=== PATIENT | female | born 1950 | race Caucasian/White ===

== ENCOUNTER 2023-10-15 13:31 | Outpatient (REF) | payer MEDICARE, OTHER, SELFPAY ==
[2023-10-16 09:25] LABS: Anion Gap 11 (12-20); Blood Urea Nitrogen 37 mg/dL (9-16); Carbon Dioxide 22 mmol/L (22-29); Chloride 111 mmol/L (96-108); Estimated Glomerular Filt Rate 26; Potassium 5.2 mmol/L (3.3-5.1); Sodium 139 mmol/L (135-145)
[2023-10-16 09:51] LABS: Creatinine Urine 65.55 mg/dL
[2023-10-16 10:01] LABS: Protein/Creatinine Ratio, Ur 3.63 (<0.2); Total Protein Urine Random 238 mg/dL (<12)
== END 2023-10-15 13:32 | disposition home or self-care (01) ==
LOC: HO.HKASLDS 13:31
PROVIDERS: Visit Provider Internal Medicine Nephrology
DX: N18.30 Chronic kidney disease, stage 3 unspecified (principal)
CPT/HCPCS: 36415; 80051; 82565; 82570; 84156; 84520

== ENCOUNTER 2023-10-20 14:15 | Outpatient (AMB) | payer MEDICARE, OTHER, SELFPAY ==
--- NOTE | 2023-10-20 14:24 | HO.NEPHOV ---
HPI HPI Comments History of Present Illness Details Annaeblle was seen in the office in follow-up for chronic kidney disease, proteinuria and hypertension. She has history of coronary disease, CABG and AVR. She has diabetic retinopathy. Her blood pressure control is fair. She denies any chest pain, shortness of breath, proximal nocturnal dyspnea, orthopnea, nausea, vomiting, diarrhea or urinary symptoms. She is currently on Farxiga. She was on Trulicity in the past but stopped due to side effects. Her recent serum creatinine has been 2. PFSH Medical History (Updated 10/20/23 @ 14:41 by Romeo Ni MD) Diabetic retinopathy Essential (primary) hypertension Aortic valve stenosis Chronic diastolic CHF (congestive heart failure) Type 2 diabetes mellitus CKD (chronic kidney disease) stage 3, GFR 30-59 ml/min HLD (hyperlipidemia) Surgical History (Updated 10/20/23 @ 14:37 by Abby Albright MA) Aortic valve replaced S/P quadruple vessel bypass Family History Father Diabetes Social History (Updated 10/20/23 @ 14:38 by Abby Albright MA) Alcohol intake: never Patient Tobacco Use Status: Never used Tobacco Use of substances other than those prescribed or required for medical reasons: No Vital Signs 10/20/23 14:25 Height 5 ft 3 in Weight 204 lb 4 oz BMI 36.2 BP 160/70 H Blood Pressure Location Rt brachial Position Sitting Pulse 58 Pulse Source Pulse Oximeter Pulse Oximetry (%) 95 Oxygen Delivery Method Room Air Physical Exam Vital Signs: Last Vital Signs Pulse 58 10/20/23 14:25 BP 160/70 H 10/20/23 14:25 Pulse Ox 95 10/20/23 14:25 Oxygen Delivery Method Room Air 10/20/23 14:25 BMI result Body Mass Index 36.2 Const General: comfortable and no acute distress Orientation/consciousness: patient oriented x3 HEENT Head: Yes normocephalic Mouth: Normal oral and palatal mucosa present Eyes EOM: EOMs intact bilaterally Neck Neck: Yes supple Resp Auscultation: clear to auscultation bilaterally Cardio Jugular venous distension: no JVD Rate: regular rate GI Palpation (GI): Soft to palpation Auscultation: normal bowel sounds General: Yes no CVA tenderness Back/Spine/Pelvis Back: no CVA tenderness Skin General skin exam: no rashes or lesions noted Neuro General: patient oriented x3 and moves all extremities Extrem General: Yes no pedal edema Assessment & Plan Assessment & Plan (1) CKD (chronic kidney disease) stage 3, GFR 30-59 ml/min: Code(s): N18.30 - Chronic kidney disease, stage 3 unspecified (2) Essential (primary) hypertension: Code(s): I10 - Essential (primary) hypertension Plan 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 She has history of MGUS as well. She is hypertensive and has history of I high MITCHELL. She could continue current dose of Lasix for now. She had declined renal biopsy in the past. She is on hydralazine, losartan and Imdur. She is taking Farxiga. She should maintain good hydration. I may have to back off on her losartan for serum creatinine rises. I did not make any medication changes today. She should lose weight. Follow-up blood work ordered. All questions answered. Follow-up given. Orders: Orders Electrolytes Today I10 - Essential (primary) hypertension, N18.30 - Chronic kidney disease, stage 3 unspecified Blood Urea Nitrogen Today I10 - Essential (primary) hypertension, N18.30 - Chronic kidney disease, stage 3 unspecified Creatinine Today I10 - Essential (primary) hypertension, N18.30 - Chronic kidney disease, stage 3 unspecified Coding Level of Care Code Est Pt Level 3 (24847) Diagnoses CKD (chronic kidney disease) stage 3, GFR 30-59 ml/min N18.30 Essential (primary) hypertension I10 Results Reviewed Nephrology Results: Hgb 10.9 g/dL (12.0-16.0) L 05/15/20 WBC 8.7 X10*3/uL (4.8-10.8) 05/15/20 Plt Count 223 x10*3/uL (160-400) 05/15/20 Sodium 139 mmol/L (135-145) 10/15/23 Potassium 5.2 mmol/L (3.3-5.1) H 10/15/23 Chloride 111 mmol/L (96-108) H 10/15/23 Carbon Dioxide 22 mmol/L (22-29) 10/15/23 BUN 37 mg/dL (9-16) H 10/15/23 Creatinine 1.89 mg/dL (0.5-1.4) H 10/15/23 Calcium 8.9 MG/DL (8.4-10.2) 07/20/20 Phosphorus 4.9 MG/DL (2.7-4.5) H 07/20/20 Urine Creatinine 65.55 mg/dL 10/15/23 Protein/Creatinin Ratio 3.63 (<0.2) H 10/15/23
[2023-10-20 14:25] VITALS: BP 160/70; PULSE 58; O2SAT 95; BMI 36.2
== END 2023-10-20 15:14 | disposition home or self-care (01) ==
PROVIDERS: PCP Internal Medicine; Visit Provider Internal Medicine Nephrology
DX: N18.30 Chronic kidney disease, stage 3 unspecified (principal); I10 Essential (primary) hypertension
CPT/HCPCS: 99213

== ENCOUNTER → 2023-10-20 14:15 | Outpatient (BNVA) | payer MEDICARE, OTHER, SELFPAY | PROVIDERS: PCP Internal Medicine; Visit Provider Internal Medicine Nephrology | DX: I12.9 Hypertensive chronic kidney disease with stage 1 through stage 4 chronic kidney disease, or unspecified chronic kidney disease (principal); N18.30 Chronic kidney disease, stage 3 unspecified | CPT/HCPCS: 99212 ==

== ENCOUNTER 2023-11-25 09:58 | Outpatient (REF) | payer MEDICARE, OTHER, SELFPAY ==
[2023-11-25 15:45] LABS: Anion Gap 11 (12-20); Blood Urea Nitrogen 41 mg/dL (9-16); Carbon Dioxide 21 mmol/L (22-29); Chloride 112 mmol/L (96-108); Estimated Glomerular Filt Rate 23; Potassium 4.9 mmol/L (3.3-5.1); Sodium 139 mmol/L (135-145)
== END 2023-11-25 09:59 | disposition home or self-care (01) ==
LOC: HO.HKASLDS 09:58
PROVIDERS: Visit Provider Internal Medicine Nephrology
DX: I12.9 Hypertensive chronic kidney disease with stage 1 through stage 4 chronic kidney disease, or unspecified chronic kidney disease (principal); N18.30 Chronic kidney disease, stage 3 unspecified
CPT/HCPCS: 36415; 80051; 82565; 84520

== ENCOUNTER 2023-12-02 10:22 | Outpatient (AMB) | payer MEDICARE, OTHER, SELFPAY ==
[2023-12-02 10:28] VITALS: BP 150/54; PULSE 55; O2SAT 98; BMI 36.0
--- NOTE | 2023-12-02 10:28 | HO.NEPHOV_ITS ---
HPI HPI Comments History of Present Illness Details Annabelle was seen in the office in follow-up for chronic kidney disease, proteinuria and hypertension. She has history of coronary disease, CABG and AVR. She has diabetic retinopathy. Her blood pressure control is fair. She denies any chest pain, shortness of breath, proximal nocturnal dyspnea, orthopnea, nausea, vomiting, diarrhea or urinary symptoms. She is currently on Farxiga. She was on Trulicity in the past but stopped due to side effects. Her recent serum creatinine has been 2. Her losartan has been put on hold last week given lack of improvement of serum creatinine to see whether that makes a di fference in her serum creatinine. She continues to have proteinuria over 3 g. She is having intermittent low blood sugars like 59. [facility] Medical History (Updated 12/02/23 @ 10:33 by Romeo Ni MD) Diabetic retinopathy Essential (primary) hypertension Aortic valve stenosis Chronic diastolic CHF (congestive heart failure) Type 2 diabetes mellitus CKD (chronic kidney disease) stage 3, GFR 30-59 ml/min HLD (hyperlipidemia) Surgical History Aortic valve replaced S/P quadruple vessel bypass Family History Father Diabetes Social History Alcohol intake: never Patient Tobacco Use Status: Never used Tobacco Vital Signs 12/02/23 10:28 Height 5 ft 3 in Weight 203 lb 4 oz BMI 36.0 BP 150/54 H Blood Pressure Location Lt brachial Position Sitting Pulse 55 Pulse Source Pulse Oximeter Pulse Oximetry (%) 98 Oxygen Delivery Method Room Air Physical Exam Vital Signs: Last Vital Signs Pulse 55 12/02/23 10:28 BP 150/54 H 12/02/23 10:28 Pulse Ox 98 12/02/23 10:28 Oxygen Delivery Method Room Air 12/02/23 10:28 BMI result Body Mass Index 36.0 Const General: comfortable and no acute distress Orientation/consciousness: patient oriented x3 HEENT Head: Yes normocephalic Mouth: Normal oral and palatal mucosa present Eyes EOM: EOMs intact bilaterally Neck Neck: Yes supple Resp Auscultation: clear to auscultation bilaterally Cardio Jugular venous distension: no JVD Rate: regular rate GI Palpation (GI): Soft to palpation Auscultation: normal bowel sounds General: Yes no CVA tenderness Back/Spine/Pelvis Back: no CVA tenderness Skin General skin exam: no rashes or lesions noted Neuro General: patient oriented x3 and moves all extremities Assessment & Plan Assessment & Plan (1) CKD (chronic kidney disease) stage 3, GFR 30-59 ml/min: Code(s): N18.30 - Chronic kidney disease, stage 3 unspecified Qualifiers: Chronic kidney disease stage 3 subtype: stage 3b (GFR 30-44) Qualified Code(s): N18.32 - Chronic kidney disease, stage 3b (2) Essential (primary) hypertension: Code(s): I10 - Essential (primary) hypertension (3) Diabetic nephropathy: Code(s): E11.21 - Type 2 diabetes mellitus with diabetic nephropathy Qualifiers: Diabetes mellitus type: type 2 Qualified Code(s): E11.21 - Type 2 diabetes mellitus with diabetic nephropathy (4) Anemia in chronic kidney disease: Code(s): N18.9 - Chronic kidney disease, unspecified; D63.1 - Anemia in chronic kidney disease Qualifiers: Chronic kidney disease stage: stage 3 (moderate) Chronic kidney disease stage 3 subtype: stage 3b (GFR 30-44) Qualified Code(s): N18.32 - Chronic kidney disease, stage 3b; D63.1 - Anemia in chronic kidney disease Plan 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 She has history of MGUS as well. She is hypertensive and has history of high MITCHELL. She could continue current dose of Lasix for now. She had declined renal biopsy in the past. She is on hydralazine, losartan and Imdur. She is taking Farxiga. Her losartan is currently on hold. She has no indication of initiating Procrit now. She should maintain good hydration. I may have to restart her losartan if her serum creatinine remains stable. I reduced her Farxiga to 10 mg daily. I also increased her hydralazine to 50 mg bid. I did not make any medication changes today. She should lose weight. Follow-up blood work ordered. All questions answered. Follow-up given Orders: Orders Blood Urea Nitrogen Today D63.1 - Anemia in chronic kidney disease, E11.21 - Type 2 diabetes mellitus with diabetic nephropathy, I10 - Essential (primary) hypertension, N18.30 - Chronic kidney disease, stage 3 unspecified, N18.9 - Chronic kidney disease, unspecified Electrolytes Today D63.1 - Anemia in chronic kidney disease, E11.21 - Type 2 diabetes mellitus with diabetic nephropathy, I10 - Essential (primary) hypertension, N18.30 - Chronic kidney disease, stage 3 unspecified, N18.9 - Chronic kidney disease, unspecified Creatinine Today D63.1 - Anemia in chronic kidney disease, E11.21 - Type 2 diabetes mellitus with diabetic nephropathy, I10 - Essential (primary) hypertension, N18.30 - Chronic kidney disease, stage 3 unspecified, N18.9 - Chronic kidney disease, unspecified Medications: New dapagliflozin propanediol (Farxiga) 10 mg PO DAILY 30 tabs 5RF Refilled ergocalciferol (vitamin D2) 1,250 mcg PO .once a month 90 days 3 caps 11RF Coding Level of Care Code Est Pt Level 4 (83212) Diagnoses Stage 3b chronic kidney disease N18.32 Chronic kidney disease stage 3 subtype: stage 3b (GFR 30-44) Essential (primary) hypertension I10 Diabetic nephropathy associated with type 2 diabetes mellitus E11.21 Diabetes mellitus type: type 2 Anemia in stage 3b chronic kidney disease N18.32; D63.1 Chronic kidney disease stage: stage 3 (moderate) Chronic kidney disease stage 3 subtype: stage 3b (GFR 30-44) Results Reviewed Nephrology Results: 2 Hgb 10.9 g/dL (12.0-16.0) L 05/15/20 WBC 8.7 X10*3/uL (4.8-10.8) 05/15/20 Plt Count 223 x10*3/uL (160-400) 05/15/20 Sodium 139 mmol/L (135-145) 11/25/23 Potassium 4.9 mmol/L (3.3-5.1) 11/25/23 Chloride 112 mmol/L (96-108) H 11/25/23 Carbon Dioxide 21 mmol/L (22-29) L 11/25/23 BUN 41 mg/dL (9-16) H 11/25/23 Creatinine 2.07 mg/dL (0.5-1.4) H 11/25/23 Calcium 8.9 MG/DL (8.4-10.2) 09/17/20 Phosphorus 4.9 MG/DL (2.7-4.5) H 07/20/20 Urine Creatinine 65.55 mg/dL 10/15/23 Protein/Creatinin Ratio 3.63 (<0.2) H 10/15/23
== END 2023-12-02 10:55 | disposition home or self-care (01) ==
PROVIDERS: PCP Internal Medicine; Visit Provider Internal Medicine Nephrology
DX: N18.32 Chronic kidney disease, stage 3b (principal); I10 Essential (primary) hypertension; E11.21 Type 2 diabetes mellitus with diabetic nephropathy; D63.1 Anemia in chronic kidney disease
CPT/HCPCS: 99214

== ENCOUNTER → 2023-12-02 10:22 | Outpatient (BNVA) | payer MEDICARE, OTHER, SELFPAY | PROVIDERS: PCP Internal Medicine; Visit Provider Internal Medicine Nephrology | DX: I12.9 Hypertensive chronic kidney disease with stage 1 through stage 4 chronic kidney disease, or unspecified chronic kidney disease (principal); E11.21 Type 2 diabetes mellitus with diabetic nephropathy; N18.32 Chronic kidney disease, stage 3b; D63.1 Anemia in chronic kidney disease; R80.9 Proteinuria, unspecified; Z79.899 Other long term (current) drug therapy | CPT/HCPCS: 99212 ==

== ENCOUNTER 2023-12-17 12:21 | Emergency (ER) | payer MEDICARE, OTHER, SELFPAY ==
--- NOTE | ~2023-12-17 | XR_ITS ---
EXAMINATION: XR CHEST CLINICAL INFORMATION: Pain COMPARISON: Chest radiograph 10/15/2019 TECHNIQUE: 2 views of the chest FINDINGS: Lines and tubes: Median sternotomy wires and mediastinal surgical clips. Cardiac valve prosthesis. Clear lungs. Interval resolution of previously seen small right pleural effusion and decrease in now trace left pleural effusion. No pneumothorax. Borderline enlarged cardiac silhouette decreased from prior. XR/XR chest 2V IMPRESSION: 1. Interval resolution of previously seen small right pleural effusion and decrease in now trace left pleural effusion. 2. Borderline enlarged cardiac silhouette decreased from prior.
[2023-12-17 12:53] VITALS: BP 198/64; PULSE 66; RESP 18; TEMP 35.9; O2SAT 94; BMI 36.2
--- NOTE | 2023-12-17 12:53 | ED.GENADULT ---
HPI - General Adult General Chief complaint: General Medical Stated complaint: Kidney Issues Sent By PCP Time Seen by Provider: 12/17/23 15:11 Source: patient Mode of arrival: ambulatory Limitations: no limitations History of Present Illness HPI narrative: 73-year-old female with a history of diabetes mellitus, hypertension, hyperlipidemia, chronic kidney disease, aortic valve replacement, CABG x4 vessel who presents emergency department for evaluation headache, chest pain and elevated blood pressures. The patient that she has been working with her inspector watch assembly, Dr. Jaime on trying to control her blood pressures. She states that her systolic blood pressures can range from 90-200. She states she has been checking her blood pressures multiple times a day and recently her morning systolic blood pressures have been over 200 she states that over the past 4 days she has been having a left-sided headache which is been constant is 2/10 at its worst. The headache associated with nausea, vomiting and generalized weakness. She also states she has been having intermittent left-sided chest pain which started today. She states that the chest pain lasts minutes. She also feels like her heart is racing. She denied fever, chills, she states she has had an occasional cough. Related Data Home Medications Medication Instructions Recorded Confirmed aspirin 81 mg tablet,delayed 81 mg PO DAILY 10/20/23 release ezetimibe 10 mg tablet 10 mg PO DAILY 10/20/23 ferrous sulfate 137 mg (45 mg mg PO DAILY 10/20/23 iron) tablet,extended release (Slow Fe) furosemide 40 mg tablet 40 mg PO Q OTHER DAY 10/20/23 isosorbide mononitrate 30 mg 30 mg PO DAILY 10/20/23 tablet,extended release 24 hr losartan 25 mg tablet 25 mg PO DAILY 10/20/23 carvedilol 3.125 mg tablet 6.25 mg PO BID 12/02/23 dapagliflozin propanediol 10 mg 10 mg PO DAILY 12/02/23 12/02/23 tablet (Farxiga) hydralazine 25 mg tablet 50 mg PO BID 12/02/23 12/02/23 magnesium 250 mg tablet 250 mg PO DAILY 12/02/23 Previous Rx's Medication Instructions Recorded atorvastatin 80 mg tablet 80 mg PO BEDTIME 90 days #90 tabs 08/15/20 blood sugar diagnostic (FreeStyle #100 ea 08/30/20 Lite Strips) lancets 28 gauge (FreeStyle #100 ea 08/30/20 Lancets) dapagliflozin propanediol 10 mg 10 mg PO DAILY #30 tabs 12/02/23 tablet (Farxiga) ergocalciferol (vitamin D2) 1,250 1,250 mcg PO .once a month 90 days 12/02/23 mcg (50,000 unit) capsule #3 caps lorazepam 1 mg tablet (Ativan) 1 mg PO TID PRN anxiety #10 tabs 12/17/23 Allergies Allergy/AdvReac Type Severity Reaction Status Date / Time liraglutide [Victoza] Allergy Unknown Unknown Verified 12/17/23 12:52 lisinopril [LISINOPRIL] Allergy Unknown cough Verified 12/17/23 12:52 adhisive Allergy Unknown Unknown Uncoded 10/20/23 14:28 Review of Systems Review of Systems: Yes all other systems are reviewed and are negative [facility] Past Medical History Medical History Diabetic retinopathy Essential (primary) hypertension Aortic valve stenosis Chronic diastolic CHF (congestive heart failure) Type 2 diabetes mellitus CKD (chronic kidney disease) stage 3, GFR 30-59 ml/min HLD (hyperlipidemia) Surgical History Aortic valve replaced S/P quadruple vessel bypass Family History Family History Father Diabetes Social History Social History Alcohol intake: never Patient Tobacco Use Status: Never used Tobacco Advance Directives: Yes Advance Directives Information Provided: No Advance Directives on File: No Physical Exam ED Vital Signs: Vital Signs - 24 hr 12/17/23 12:53 Temperature 96.7 F L Pulse Rate 66 Respiratory Rate 18 Blood Pressure 198/64 H Pulse Oximetry 94 Oxygen Delivery Method Room Air BMI result Body Mass Index 36.2 Vital signs revealed an elevated blood pressure 198/64 otherwise unremarkable Exam General: Awake, alert in no distress Head: Normocephalic, atraumatic EENT: PERRL, Lids normal, sclera normal, conjunctiva normal, nose normal , ears normal, throat without erythema or exudates Neck: Supple, no adenopathy Lung: breath sounds symmetric, no wheezing, rales or rhonchi Chest: symmetric movement, nontender Heart: regular rate and rhythm, normal S1, S2 no murmurs or rubs Abdomen: soft, non-tender, nondistended, normal bowel sounds Back: no vertebral tenderness, no CVAT Extremities: no deformities, moves all extremities symmetrically, exam no pitting edema Neuro: Awake, alert, oriented, normal speech, cranial nerves intact, moves all extremities symmetrically Psych: Pleasant, cooperative Course Course Course Narrative: Patient complains of intermittent chest pain, weakness, low sugars at home, and is also concerned about high blood pressure readings at home, no chest pain at this moment Labs and EKG are ordered, chest X ordered This is rapid medical exam done in triage pending full evaluation and dispo by ER provider Medical Decision Making Medical Decision Making MDM Narrative: 73-year-old female with a history of diabetes mellitus, hypertension, hyperlipidemia, chronic kidney disease, aortic valve replacement, CABG x4 vessel who presents emergency department for evaluation headache, chest pain and elevated blood pressures. Patient has had a constant left-sided headache x4 days . She was also concerned that she had intermittent left-sided chest pain which started today. Patient's vital signs were normal except for an elevated blood pressure at 198/64. Patient's neurologic exam was nonfocal, patient had no chest wall tenderness. Differential diagnosis: Includes but is not limited to myocardial infarction, myocardial ischemia, chest wall pain, costochondritis, stroke, migraine headache, nonspecific headache, exam 15:56 My interpretation of the patient's laboratory evaluation is as follows: Eroded all down CBC revealed mild anemia with an H&H of 11.7 and 36.0. BUN 31 and 1.97-this is consistent with the patient's chronic kidney disease. Patient's GFR was 25. This was compared to a GFR of 23 on 11/25/2023. Patient's potassium was normal. Troponin was elevated at 26.2 and will be repeated at 17:00 hours 18:38 Repeat troponin was 25 which is reassuring. I did discuss further management of the patient's blood pressure with her, she is to check her blood pressure in the morning at night until she sees her inspector watch assembly next week to discuss these readings. I do think that there has a component of anxiety to the patient's symptoms and she agrees. Therefore the patient was given prescription for Ativan 1 mg pills, 1 pill 3 times as needed. Admission/Observation Consideration of admission/observation: Escalation of care including admission/observation considered Lab Data MDM Lab Attestation statement: I reviewed the patient's lab results. 12/17/23 13:52 12/17/23 13:52 Labs: Lab Results 12/17/23 12/17/23 Range/Units 13:52 17:39 WBC 7.0 (4.8-10.8) X10*3/uL RBC 3.98 L (4.20-5.50) X10*6/uL Hgb 11.7 L (12.0-16.0) g/dl Hct 36.0 L (37.0-47.0) % MCV 90.5 (80.0-98.0) fL MCH 29.4 (27.0-33.0) pg MCHC 32.5 (31.0-35.0) g/dl RDW 14.3 (11.0-16.0) % Plt Count 213 (160-400) X10*3/uL MPV 12.1 (9.4-12.3) fL Immature Gran % (Auto) 0.3 (0.0-0.4) % Neut % (Auto) 67.1 (45-73) % Lymph % (Auto) 22.0 (20-40) % Riley % (Auto) 8.7 (2-11) % Eos % (Auto) 1.6 (0-4) % Baso % (Auto) 0.3 (0-2) % Lymph # (Auto) 1.5 (1.2-4.9) X10*3/uL Riley # (Auto) 0.6 (0.1-1.2) X10*3/uL Eos # (Auto) 0.1 (0.0-0.4) X10*3/uL Baso # (Auto) 0.0 (0.0-0.2) X10*3/uL Abs Immat Gran (auto) 0.02 (0.00-0.03) X10*3/uL Absolute Neuts (auto) 4.7 (2.0-8.3) x10*3/uL Absolute Nucleated RBC 0.000 (0.0-0.012) X10*3/uL Nucleated RBC % (auto) 0.0 (0.0-0.2) /100WBC Sodium 140 (135-145) mmol/L Potassium 4.6 (3.3-5.1) mmol/L Chloride 112 H (96-108) mmol/L Carbon Dioxide 21 L (22-29) mmol/L Anion Gap 12 (12-20) BUN 31 H (9-16) mg/dL Creatinine 1.97 H (0.5-1.4) mg/dL Estim Creat Clear Calc 26.4 Estimated GFR 25 Random Glucose 126 H (60-115) mg/dL Calcium 9.3 (8.4-10.2) mg/dL Total Bilirubin 0.3 (0.0-1.0) mg/dL Direct Bilirubin 0.2 (0.0-0.5) mg/dL AST 21 (5-31) U/L ALT 14 (0-31) U/L Alkaline Phosphatase 86 (39-117) U/L Troponin I High Sens 26.2 H 25.5 H (<3.5-17.0) ng/L Total Protein 7.3 (6.5-8.0) g/dL Albumin 3.7 (3.5-5.0) g/dL Lipase 10 (8-78) U/L COVID-19 (PRISCILLA) Negative (Negative) COVID-19 Clin Com See Note Independent Interpretation I performed an independent interpretation of an: EKG Interpretation: My interpretation the patient's 12 EKG done at 13:45 hours is as follows: Sinus rhythm rate of 61, first-degree AV block with a TX interval 250 milliseconds, prolonged QRS of 116 milliseconds, normal QTC interval, inverted T-wave in lead 1 and aVL, no ST segment elevation, no ST segment depression, no PACs no PVCs. Compared to EKG dated 10/23/2019 T-wave inversions in 1 and aVL are old. My interpretation patient's two view chest x-ray is as follows: No acute disease, patient had a right lower lobe effusion on the previous chest x-ray which is now resolved Radiology Impression Discussion of test interpretation with radiology: I have reviewed the radiologist's reading. Radiologist Impression: XR chest 2V IMPRESSION: 1. Interval resolution of previously seen small right pleural effusion and decrease in now trace left pleural effusion. 2. Borderline enlarged cardiac silhouette decreased from prior. Dictated By: Maye Diane MD External Record Review External record reviewed: Office record (In review Dr. Ni's office note from 12/02/2023) Chronic Conditions Patient?s care impacted by: Diabetes and Hypertension Discharge Plan Discharge Clinical Impression: Headache, Chest pain, Hypertension, Anxiety Patient Disposition: Home, Self-Care Additional Instructions: Your blood work is consistent with your baseline labs Your troponin was elevated at 26 but the repeat troponin was unchanged at 25, this is reassuring and suggests that your chest pain is not caused by heart attack or heart injury. I want you to check your blood pressures in the morning and at night until you see your inspector watch assembly. Write these blood pressures down in do not worry about any high or low readings and discuss them with your doctor. Ask your Nephrology what systolic blood pressure range would be acceptable given your age and kidney disease Take Ativan 1 mg pills, 1 pill at night as needed anxiety and insomnia. ?This medication will make you sleepy, do not drive or work while taking this medication. ?This medication can be addicting, if your concerned about addiction you can ask the pharmacist for less medications or do not get the prescription filled. Continue taking your blood pressures as prescribed Follow-up with your doctor in 2 days. Please return to the emergency department if your symptoms get worse or if you develop any symptoms that are concerning to you. Prescriptions: New lorazepam [Ativan] 1 mg tablet 1 mg PO TID PRN (Reason: anxiety) Qty: 10 0RF Rx Instructions: Patient may request partial fill No Action atorvastatin 80 mg tablet 80 mg PO BEDTIME 90 Days Qty: 90 3RF (DME) FreeStyle Lite Strips Strip See Rx Instructions .ROUTE .MEDSUPPLY Qty: 100 6RF Rx Instructions: test 3 times a day (DME) lancets [FreeStyle Lancets] 28 gauge misc See Rx Instructions .ROUTE .MEDSUPPLY Qty: 100 6RF Rx Instructions: test 3 times a day isosorbide mononitrate 30 mg tablet extended release 24 hr 30 mg PO DAILY furosemide 40 mg tablet 40 mg PO Q OTHER DAY ezetimibe 10 mg tablet 10 mg PO DAILY losartan 25 mg tablet 25 mg PO DAILY aspirin 81 mg tablet,delayed release (DR/EC) 81 mg PO DAILY Slow Fe 137 mg (45 mg iron) tablet extended release PO DAILY carvedilol 3.125 mg tablet 6.25 mg PO BID Rx Instructions: must administer with a meal/food magnesium 250 mg tablet 250 mg PO DAILY hydralazine 25 mg tablet 50 mg PO BID ergocalciferol (vitamin D2) 1,250 mcg (50,000 unit) capsule 1,250 mcg PO .once a month 90 Days Qty: 3 11RF Farxiga 10 mg tablet 10 mg PO DAILY Farxiga 10 mg tablet 10 mg PO DAILY Qty: 30 5RF
--- NOTE | 2023-12-17 12:55 | ECG_ITS ---
Test Reason : cp Blood Pressure : / mmHG Vent. Rate : 061 BPM Atrial Rate : 061 BPM P-R Int : 250 ms QRS Dur : 116 ms QT Int : 440 ms P-R-T Axes : 051 -45 120 degrees QTc Int : 442 ms Sinus rhythm with 1st degree A-V block Possible Left atrial enlargement Left anterior fascicular block Left ventricular hypertrophy with QRS widening and repolarization abnormality ( R in aVL , [place] product ) Abnormal ECG When compared with ECG of 23-OCT-2019 08:23, Criteria for Anterior infarct are no longer Present Nonspecific T wave abnormality no longer evident in Inferior leads T wave inversion less evident in Lateral leads Referred By: Bharath Laws Electronically Signed By:Max Howell
[2023-12-17 14:00] LABS: MANUAL DIFF FLAG NO
[2023-12-17 14:07] LABS: Basophils Percent Auto 0.3 % (0-2); Eosinophils Absolute Auto 0.1 X10*3/uL (0.0-0.4); Eosinophils Percent Auto 1.6 % (0-4); Hemoglobin 11.7 g/dl (12.0-16.0); Imm Gran Abs Auto 0.02 X10*3/uL (0.00-0.03); Imm Gran Pct Auto 0.3 % (0.0-0.4); Lymphocytes Absolute Auto 1.5 X10*3/uL (1.2-4.9); Mean Corpuscular HGB Conc 32.5 g/dl (31.0-35.0); Mean Corpuscular Hemoglobin 29.4 pg (27.0-33.0); Mean Corpuscular Volume 90.5 fL (80.0-98.0); Mean Platelet Volume 12.1 fL (9.4-12.3); Monocytes Absolute Auto 0.6 X10*3/uL (0.1-1.2); Monocytes Percent Auto 8.7 % (2-11); Neutrophils Absolute Auto 4.7 x10*3/uL (2.0-8.3); Neutrophils Percent Auto 67.1 % (45-73); Platelet Count 213 X10*3/uL (160-400); Red Blood Count 3.98 X10*6/uL (4.20-5.50); Red Cell Distribution Width 14.3 % (11.0-16.0)
[2023-12-17 14:16] LABS: Alanine Aminotransferase 14 U/L (0-31); Albumin Level 3.7 g/dL (3.5-5.0); Alkaline Phosphatase 86 U/L (39-117); Anion Gap 12 (12-20); Aspartate Amino Transferase 21 U/L (5-31); Bilirubin Direct 0.2 mg/dL (0.0-0.5); Bilirubin Total 0.3 mg/dL (0.0-1.0); Blood Urea Nitrogen 31 mg/dL (9-16); Calcium 9.3 mg/dL (8.4-10.2); Carbon Dioxide 21 mmol/L (22-29); Chloride 112 mmol/L (96-108); Creatinine Clr Calc Pharmacy 26.4; Estimated Glomerular Filt Rate 25; Glucose Random 126 mg/dL (60-115); Lipase 10 U/L (8-78); Potassium 4.6 mmol/L (3.3-5.1); Sodium 140 mmol/L (135-145); Total Protein 7.3 g/dL (6.5-8.0)
[2023-12-17 14:22] LABS: Troponin-I High Sensitivity 26.2 ng/L (<3.5-17.0)
[2023-12-17 14:29] LABS: COVID-19 Test Negative (Negative); IDNOW Serial# 9DB6401D
[2023-12-17 18:06] LABS: Troponin-I High Sensitivity 25.5 ng/L (<3.5-17.0)
[2023-12-17 19:02] VITALS: BP 184/51; PULSE 70; RESP 18; TEMP 36.5; O2SAT 97
== END 2023-12-17 19:06 | disposition home or self-care (01) ==
PROVIDERS: Physician Assistant Medical; Emergency Provider Emergency Medicine Emergency Medical Services; PCP Internal Medicine
DX: R51.9 Headache, unspecified (principal); R07.9 Chest pain, unspecified; F41.9 Anxiety disorder, unspecified; E11.22 Type 2 diabetes mellitus with diabetic chronic kidney disease; I13.0 Hypertensive heart and chronic kidney disease with heart failure and stage 1 through stage 4 chronic kidney disease, or unspecified chronic kidney disease; N18.30 Chronic kidney disease, stage 3 unspecified; I50.32 Chronic diastolic (congestive) heart failure; Z11.52 Encounter for screening for COVID-19; E78.5 Hyperlipidemia, unspecified; Z79.82 Long term (current) use of aspirin; Z79.899 Other long term (current) drug therapy; Z79.02 Long term (current) use of antithrombotics/antiplatelets; Z95.1 Presence of aortocoronary bypass graft; Z95.2 Presence of prosthetic heart valve
CPT/HCPCS: 36415; 71046; 80048; 80076; 83690; 84484; 85025; 87635; 93005; 99283

== ENCOUNTER → 2023-12-17 12:55 | Outpatient (BNV) | payer MEDICARE, OTHER, SELFPAY | PROVIDERS: Emergency Provider Emergency Medicine Emergency Medical Services; PCP Internal Medicine; Visit Provider Internal Medicine Cardiovascular Disease | DX: R94.31 Abnormal electrocardiogram [ECG] [EKG] (principal) | CPT/HCPCS: 93010 ==

== ENCOUNTER 2023-12-23 10:24 | Outpatient (AMB) | payer MEDICARE, OTHER, SELFPAY ==
--- NOTE | 2023-12-23 10:39 | HO.NEPHOV ---
HPI HPI Comments History of Present Illness Details Annabelle was seen in the office in follow-up for chronic kidney disease, proteinuria and hypertension. She has history of coronary disease, CABG and AVR. She has diabetic retinopathy. Her blood pressure control has been labile. She denies any chest pain, shortness of breath, proximal nocturnal dyspnea, orthopnea, nausea, vomiting, diarrhea or urinary symptoms. She is currently on Farxiga. She was on Trulicity in the past but stopped due to side effects. Her recent serum creatinine has been 2. Her losartan has been put on hold . She continues to have proteinuria over 3 g. [facility] Medical History Diabetic retinopathy Essential (primary) hypertension Aortic valve stenosis Chronic diastolic CHF (congestive heart failure) Type 2 diabetes mellitus CKD (chronic kidney disease) stage 3, GFR 30-59 ml/min HLD (hyperlipidemia) Surgical History Aortic valve replaced S/P quadruple vessel bypass Family History Father Diabetes Social History Alcohol intake: never Patient Tobacco Use Status: Never used Tobacco Vital Signs 12/23/23 10:40 Height 5 ft 3 in Weight 205 lb 4 oz BMI 36.4 BP 130/60 Blood Pressure Location Rt brachial Position Sitting Pulse 57 Pulse Source Pulse Oximeter Pulse Oximetry (%) 97 Oxygen Delivery Method Room Air Physical Exam Vital Signs: Last Vital Signs Pulse 57 12/23/23 10:40 BP 130/60 12/23/23 10:40 Pulse Ox 97 12/23/23 10:40 Oxygen Delivery Method Room Air 12/23/23 10:40 BMI result Body Mass Index 36.4 Const General: comfortable and no acute distress Orientation/consciousness: patient oriented x3 HEENT Head: Yes normocephalic Mouth: Normal oral and palatal mucosa present Eyes EOM: EOMs intact bilaterally Neck Neck: Yes supple Resp Auscultation: clear to auscultation bilaterally Cardio Jugular venous distension: no JVD Rate: regular rate GI Palpation (GI): Soft to palpation Auscultation: normal bowel sounds General: Yes no CVA tenderness Back/Spine/Pelvis Back: no CVA tenderness Skin General skin exam: no rashes or lesions noted Neuro General: patient oriented x3 and moves all extremities Extrem General: Yes no pedal edema Assessment & Plan Assessment & Plan (1) CKD (chronic kidney disease) stage 3, GFR 30-59 ml/min: Code(s): N18.30 - Chronic kidney disease, stage 3 unspecified Qualifiers: Chronic kidney disease stage 3 subtype: stage 3b (GFR 30-44) Qualified Code(s): N18.32 - Chronic kidney disease, stage 3b (2) Diabetic nephropathy: Code(s): E11.21 - Type 2 diabetes mellitus with diabetic nephropathy Qualifiers: Diabetes mellitus type: type 2 Qualified Code(s): E11.21 - Type 2 diabetes mellitus with diabetic nephropathy (3) Essential (primary) hypertension: Code(s): I10 - Essential (primary) hypertension (4) Anemia in chronic kidney disease: Code(s): N18.9 - Chronic kidney disease, unspecified; D63.1 - Anemia in chronic kidney disease Qualifiers: Chronic kidney disease stage: stage 3 (moderate) Chronic kidney disease stage 3 subtype: stage 3b (GFR 30-44) Qualified Code(s): N18.32 - Chronic kidney disease, stage 3b; D63.1 - Anemia in chronic kidney disease Plan 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 She has history of MGUS as well. She is hypertensive and has history of high MITCHELL. She could continue current dose of Lasix for now. She had declined renal biopsy in the past. She is on hydralazine, losartan and Imdur. She is taking Farxiga. Her losartan is currently on hold. She has no indication of initiating Procrit now. She should maintain good hydration. I may have to restart her losartan if her serum creatinine remains stable. I did not make any medication changes today. She should lose weight. Follow-up blood work ordered. All questions answered. Follow-up given Orders: Orders Creatinine Today D63.1 - Anemia in chronic kidney disease, E11.21 - Type 2 diabetes mellitus with diabetic nephropathy, I10 - Essential (primary) hypertension, N18.30 - Chronic kidney disease, stage 3 unspecified, N18.9 - Chronic kidney disease, unspecified Electrolytes Today D63.1 - Anemia in chronic kidney disease, E11.21 - Type 2 diabetes mellitus with diabetic nephropathy, I10 - Essential (primary) hypertension, N18.30 - Chronic kidney disease, stage 3 unspecified, N18.9 - Chronic kidney disease, unspecified Blood Urea Nitrogen Today D63.1 - Anemia in chronic kidney disease, E11.21 - Type 2 diabetes mellitus with diabetic nephropathy, I10 - Essential (primary) hypertension, N18.30 - Chronic kidney disease, stage 3 unspecified, N18.9 - Chronic kidney disease, unspecified Coding Level of Care Code Est Pt Level 4 (62165) Diagnoses Stage 3b chronic kidney disease N18.32 Chronic kidney disease stage 3 subtype: stage 3b (GFR 30-44) Diabetic nephropathy associated with type 2 diabetes mellitus E11.21 Diabetes mellitus type: type 2 Essential (primary) hypertension I10 Anemia in stage 3b chronic kidney disease N18.32; D63.1 Chronic kidney disease stage: stage 3 (moderate) Chronic kidney disease stage 3 subtype: stage 3b (GFR 30-44) Results Reviewed Nephrology Results: Hgb 11.7 g/dl (12.0-16.0) L 12/17/23 WBC 7.0 X10*3/uL (4.8-10.8) 12/17/23 Plt Count 213 X10*3/uL (160-400) 12/17/23 Sodium 140 mmol/L (135-145) 12/17/23 Potassium 4.6 mmol/L (3.3-5.1) 12/17/23 Chloride 112 mmol/L (96-108) H 12/17/23 Carbon Dioxide 21 mmol/L (22-29) L 12/17/23 BUN 31 mg/dL (9-16) H 12/17/23 Creatinine 1.97 mg/dL (0.5-1.4) H 12/17/23 Calcium 9.3 mg/dL (8.4-10.2) 12/17/23 Phosphorus 4.9 MG/DL (2.7-4.5) H 07/20/20 Urine Creatinine 65.55 mg/dL 10/15/23 Protein/Creatinin Ratio 3.63 (<0.2) H 10/15/23
[2023-12-23 10:40] VITALS: BP 130/60; PULSE 57; O2SAT 97; BMI 36.4
== END 2023-12-23 11:09 | disposition home or self-care (01) ==
PROVIDERS: PCP Internal Medicine; Visit Provider Internal Medicine Nephrology
DX: N18.32 Chronic kidney disease, stage 3b (principal); E11.21 Type 2 diabetes mellitus with diabetic nephropathy; I10 Essential (primary) hypertension; D63.1 Anemia in chronic kidney disease
CPT/HCPCS: 99214

== ENCOUNTER → 2023-12-23 10:24 | Outpatient (BNVA) | payer MEDICARE, OTHER, SELFPAY | PROVIDERS: PCP Internal Medicine; Visit Provider Internal Medicine Nephrology | DX: E11.21 Type 2 diabetes mellitus with diabetic nephropathy (principal); I12.9 Hypertensive chronic kidney disease with stage 1 through stage 4 chronic kidney disease, or unspecified chronic kidney disease; N18.32 Chronic kidney disease, stage 3b; D63.1 Anemia in chronic kidney disease | CPT/HCPCS: 99212 ==

== ENCOUNTER 2024-02-24 09:15 | Outpatient (REF) | payer MEDICARE, OTHER, SELFPAY ==
[2024-02-24 17:20] LABS: Anion Gap 13 (12-20); Blood Urea Nitrogen 48 mg/dL (9-16); Carbon Dioxide 18 mmol/L (22-29); Chloride 114 mmol/L (96-108); Estimated Glomerular Filt Rate 22; Potassium 4.8 mmol/L (3.3-5.1); Sodium 140 mmol/L (135-145)
== END 2024-02-24 09:16 | disposition home or self-care (01) ==
LOC: HO.HKASLDS 09:15
PROVIDERS: Visit Provider Internal Medicine Nephrology
DX: I12.9 Hypertensive chronic kidney disease with stage 1 through stage 4 chronic kidney disease, or unspecified chronic kidney disease (principal); E11.22 Type 2 diabetes mellitus with diabetic chronic kidney disease; E11.21 Type 2 diabetes mellitus with diabetic nephropathy; N18.30 Chronic kidney disease, stage 3 unspecified; D63.1 Anemia in chronic kidney disease
CPT/HCPCS: 36415; 80051; 82565; 84520

== ENCOUNTER 2024-03-02 10:18 | Outpatient (AMB) | payer MEDICARE, OTHER, SELFPAY ==
--- NOTE | 2024-03-02 10:27 | HO.NEPHOV_ITS ---
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 She has history of coronary disease, CABG and AVR. She has diabetic retinopathy. Her blood pressure control has been labile. She denies any chest pain, shortness of breath, proximal nocturnal dyspnea, orthopnea, nausea, vomiting, diarrhea or urinary symptoms. She is currently on Farxiga. She was on Trulicity in the past but stopped due to side effects. Her recent serum creatinine has been around 2. Her losartan has been put on hold . She continues to have proteinuria over 3 g. [facility] Medical History Diabetic retinopathy Essential (primary) hypertension Aortic valve stenosis Chronic diastolic CHF (congestive heart failure) Type 2 diabetes mellitus CKD (chronic kidney disease) stage 3, GFR 30-59 ml/min HLD (hyperlipidemia) Surgical History Aortic valve replaced S/P quadruple vessel bypass Family History Father Diabetes Social History Alcohol intake: never Patient Tobacco Use Status: Never used Tobacco Physical Exam Vital Signs: Last Vital Signs Pulse 58 03/02/24 10:28 BP 120/62 03/02/24 10:28 Pulse Ox 95 03/02/24 10:28 Oxygen Delivery Method Room Air 03/02/24 10:28 BMI result Body Mass Index 35.4 Const General: comfortable and no acute distress Orientation/consciousness: patient oriented x3 HEENT Head: Yes normocephalic Mouth: Normal oral and palatal mucosa present Eyes EOM: EOMs intact bilaterally Neck Neck: Yes supple Resp Auscultation: clear to auscultation bilaterally Cardio Jugular venous distension: no JVD Rate: regular rate GI Palpation (GI): Soft to palpation Auscultation: normal bowel sounds General: Yes no CVA tenderness Back/Spine/Pelvis Back: no CVA tenderness Skin General skin exam: no rashes or lesions noted Neuro General: patient oriented x3 and moves all extremities Extrem General: Yes no pedal edema Results Reviewed Nephrology Results: Hgb 11.7 g/dl (12.0-16.0) L 12/17/23 WBC 7.0 X10*3/uL (4.8-10.8) 12/17/23 Plt Count 213 X10*3/uL (160-400) 12/17/23 Sodium 140 mmol/L (135-145) 02/24/24 Potassium 4.8 mmol/L (3.3-5.1) 02/24/24 Chloride 114 mmol/L (96-108) H 02/24/24 Carbon Dioxide 18 mmol/L (22-29) L 02/24/24 BUN 48 mg/dL (9-16) H 02/24/24 Creatinine 2.18 mg/dL (0.5-1.4) H 02/24/24 Calcium 9.3 mg/dL (8.4-10.2) 12/17/23 Phosphorus 4.9 MG/DL (2.7-4.5) H 07/20/20 Urine Creatinine 65.55 mg/dL 10/15/23 Protein/Creatinin Ratio 3.63 (<0.2) H 10/15/23 Assessment & Plan Assessment & Plan (1) Diabetic nephropathy: Code(s): E11.21 - Type 2 diabetes mellitus with diabetic nephropathy Category: Medical Qualifiers: Diabetes mellitus type: type 2 Qualified Code(s): E11.21 - Type 2 diabetes mellitus with diabetic nephropathy (2) Essential (primary) hypertension: Code(s): I10 - Essential (primary) hypertension Category: Medical (3) CKD (chronic kidney disease) stage 3, GFR 30-59 ml/min: Code(s): N18.30 - Chronic kidney disease, stage 3 unspecified Category: Medical Qualifiers: Chronic kidney disease stage 3 subtype: stage 3b (GFR 30-44) Qualified Code(s): N18.32 - Chronic kidney disease, stage 3b (4) Anemia in chronic kidney disease: Code(s): N18.9 - Chronic kidney disease, unspecified; D63.1 - Anemia in chronic kidney disease Category: Medical Qualifiers: Chronic kidney disease stage: stage 3 (moderate) Chronic kidney disease stage 3 subtype: stage 3b (GFR 30-44) Qualified Code(s): N18.32 - Chronic kidney disease, stage 3b; D63.1 - Anemia in chronic kidney disease Santosh 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 She has history of MGUS as well. She is hypertensive and has history of high MITCHELL. She could continue current dose of Lasix for now ( as needed). She had declined renal biopsy in the past. She is on hydralazine, and Imdur. She is taking Farxiga. Her losartan is currently on hold which I may restart with time. She has no indication of initiating Procrit now. She should maintain good hydration. I did not make any medication changes today. She should lose weight. Follow-up blood work ordered. All questions answered. Follow-up given Orders: Orders Blood Urea Nitrogen Today D63.1 - Anemia in chronic kidney disease, E11.21 - Type 2 diabetes mellitus with diabetic nephropathy, I10 - Essential (primary) hypertension, N18.32 - Chronic kidney disease, stage 3b Creatinine Today D63.1 - Anemia in chronic kidney disease, E11.21 - Type 2 diabetes mellitus with diabetic nephropathy, I10 - Essential (primary) hypertension, N18.32 - Chronic kidney disease, stage 3b Phosphorus Today D63.1 - Anemia in chronic kidney disease, E11.21 - Type 2 diabetes mellitus with diabetic nephropathy, I10 - Essential (primary) hypertension, N18.32 - Chronic kidney disease, stage 3b Electrolytes Today D63.1 - Anemia in chronic kidney disease, E11.21 - Type 2 diabetes mellitus with diabetic nephropathy, I10 - Essential (primary) hypertension, N18.32 - Chronic kidney disease, stage 3b Parathyroid Hormone Intact Today D63.1 - Anemia in chronic kidney disease, E11.21 - Type 2 diabetes mellitus with diabetic nephropathy, I10 - Essential (primary) hypertension, N18.32 - Chronic kidney disease, stage 3b Coding Level of Care Code Est Pt Level 4 (39684) Diagnoses Diabetic nephropathy associated with type 2 diabetes mellitus E11.21 Diabetes mellitus type: type 2 Essential (primary) hypertension I10 Stage 3b chronic kidney disease N18.32 Chronic kidney disease stage 3 subtype: stage 3b (GFR 30-44) Anemia in stage 3b chronic kidney disease N18.32; D63.1 Chronic kidney disease stage: stage 3 (moderate) Chronic kidney disease stage 3 subtype: stage 3b (GFR 30-44)
[2024-03-02 10:28] VITALS: BP 120/62; PULSE 58; O2SAT 95; BMI 35.4
== END 2024-03-02 10:55 | disposition home or self-care (01) ==
PROVIDERS: PCP Internal Medicine; Visit Provider Internal Medicine Nephrology
DX: E11.21 Type 2 diabetes mellitus with diabetic nephropathy (principal); I10 Essential (primary) hypertension; N18.32 Chronic kidney disease, stage 3b; D63.1 Anemia in chronic kidney disease
CPT/HCPCS: 99214

== ENCOUNTER → 2024-03-02 10:18 | Outpatient (BNVA) | payer MEDICARE, OTHER, SELFPAY | PROVIDERS: PCP Internal Medicine; Visit Provider Internal Medicine Nephrology | DX: E11.21 Type 2 diabetes mellitus with diabetic nephropathy (principal); E11.22 Type 2 diabetes mellitus with diabetic chronic kidney disease; I12.9 Hypertensive chronic kidney disease with stage 1 through stage 4 chronic kidney disease, or unspecified chronic kidney disease; N18.32 Chronic kidney disease, stage 3b; D63.1 Anemia in chronic kidney disease | CPT/HCPCS: 99212 ==

== ENCOUNTER 2024-05-25 13:56 | Outpatient (REF) | payer MEDICARE, OTHER, SELFPAY | END 2024-05-25 13:57 | disposition home or self-care (01) | LOC: HO.HKASLDS 13:56 | PROVIDERS: Visit Provider Internal Medicine Nephrology | DX: Z13.89 Encounter for screening for other disorder (principal) ==

== ENCOUNTER 2024-05-27 15:02 | Outpatient (REF) | payer MEDICARE, OTHER, SELFPAY ==
[2024-05-27 17:46] LABS: Anion Gap 16 (12-20); Blood Urea Nitrogen 49 mg/dL (9-16); Carbon Dioxide 19 mmol/L (22-29); Chloride 111 mmol/L (96-108); Estimated Glomerular Filt Rate 16; Phosphorus 4.1 mg/dL (2.7-4.5); Sodium 141 mmol/L (135-145)
[2024-05-28 05:35] LABS: Parathyroid Hormone Intact 398.7 pg/mL (8.7-77.1)
== END 2024-05-27 15:03 | disposition home or self-care (01) ==
LOC: HO.HKASLDS 15:02
PROVIDERS: Visit Provider Internal Medicine Nephrology
DX: N18.30 Chronic kidney disease, stage 3 unspecified (principal); N18.32 Chronic kidney disease, stage 3b; D63.1 Anemia in chronic kidney disease; E11.21 Type 2 diabetes mellitus with diabetic nephropathy; I10 Essential (primary) hypertension; N18.9 Chronic kidney disease, unspecified
CPT/HCPCS: 36415; 80051; 82565; 83970; 84100; 84520

== ENCOUNTER 2024-06-01 09:56 | Outpatient (AMB) | payer MEDICARE, OTHER, SELFPAY ==
[2024-06-01 10:01] VITALS: BP 154/78; PULSE 59; O2SAT 96; BMI 36.1
--- NOTE | 2024-06-01 10:01 | HO.NEPHOV_ITS ---
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 She has history of coronary disease, CABG and AVR. She has diabetic retinopathy. Her blood pressure control has been labile. She denies any chest pain, shortness of breath, proximal nocturnal dyspnea, orthopnea, nausea, vomiting, diarrhea or urinary symptoms. She is currently on Farxiga. She was on Trulicity in the past but stopped due to side effects. Her recent serum creatinine has been around 2. Her losartan has been put on hold . She continues to have proteinuria over 3 g PFSH Medical History Diabetic retinopathy Essential (primary) hypertension Aortic valve stenosis Chronic diastolic CHF (congestive heart failure) Type 2 diabetes mellitus CKD (chronic kidney disease) stage 3, GFR 30-59 ml/min HLD (hyperlipidemia) Surgical History Aortic valve replaced S/P quadruple vessel bypass Family History Father Diabetes Social History Alcohol intake: never Patient Tobacco Use Status: Never used Tobacco Physical Exam Const General: comfortable and no acute distress Orientation/consciousness: patient oriented x3 HEENT Head: Yes normocephalic Mouth: Normal oral and palatal mucosa present Eyes EOM: EOMs intact bilaterally Neck Neck: Yes supple Resp Auscultation: clear to auscultation bilaterally Cardio Jugular venous distension: no JVD Rate: regular rate GI Palpation (GI): Soft to palpation Auscultation: normal bowel sounds General: Yes no CVA tenderness Back/Spine/Pelvis Back: no CVA tenderness Skin General skin exam: no rashes or lesions noted Neuro General: patient oriented x3 and moves all extremities Results Reviewed Nephrology Results: Hgb 11.7 g/dl (12.0-16.0) L 12/17/23 WBC 7.0 X10*3/uL (4.8-10.8) 12/17/23 Plt Count 213 X10*3/uL (160-400) 12/17/23 Sodium 141 mmol/L (135-145) 05/27/24 Potassium 5.0 mmol/L (3.3-5.1) 05/27/24 Chloride 111 mmol/L (96-108) H 05/27/24 Carbon Dioxide 19 mmol/L (22-29) L 05/27/24 BUN 49 mg/dL (9-16) H 05/27/24 Creatinine 2.81 mg/dL (0.5-1.4) H 05/27/24 Calcium 9.3 mg/dL (8.4-10.2) 12/17/23 Phosphorus 4.1 mg/dL (2.7-4.5) 05/27/24 PTH Intact 398.7 pg/mL (8.7-77.1) H 05/27/24 Assessment & Plan Assessment & Plan (1) CKD (chronic kidney disease) stage 3, GFR 30-59 ml/min: Code(s): N18.30 - Chronic kidney disease, stage 3 unspecified Category: Medical Qualifiers: Chronic kidney disease stage 3 subtype: stage 3b (GFR 30-44) Qualified Code(s): N18.32 - Chronic kidney disease, stage 3b (2) Essential (primary) hypertension: Code(s): I10 - Essential (primary) hypertension Category: Medical (3) Diabetic nephropathy: Code(s): E11.21 - Type 2 diabetes mellitus with diabetic nephropathy Category: Medical Qualifiers: Diabetes mellitus type: type 2 Qualified Code(s): E11.21 - Type 2 diabetes mellitus with diabetic nephropathy (4) Anemia in chronic kidney disease: Code(s): N18.9 - Chronic kidney disease, unspecified; D63.1 - Anemia in chronic kidney disease Category: Medical Qualifiers: Chronic kidney disease stage: stage 3 (moderate) Chronic kidney disease stage 3 subtype: stage 3b (GFR 30-44) Qualified Code(s): N18.32 - Chronic kidney disease, stage 3b; D63.1 - Anemia in chronic kidney disease (5) Secondary hyperparathyroidism (of renal origin): Code(s): N25.81 - Secondary hyperparathyroidism of renal origin Category: Medical Plan 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 She has history of MGUS as well. She is hypertensive and has history of high MITCHELL. She could continue current dose of Lasix as needed. She had declined renal biopsy in the past. She is on hydralazine, Imdur & Farxiga. Her losartan is currently on hold which I may restart with time. I increased her isosorbide to 60 mg daily. She has no indication of initiating Procrit now. She should maintain good hydration. I discussed about declining renal functions and potential need for renal replacement in the future. I also started her on calcitriol 0.2 mcg 3 times a week. I did not make any medication changes today. She should lose weight. Follow-up blood work ordered. All questions answered. Follow-up given Orders: Orders Blood Urea Nitrogen Today D63.1 - Anemia in chronic kidney disease, E11.21 - Type 2 diabetes mellitus with diabetic nephropathy, I10 - Essential (primary) hypertension, N18.32 - Chronic kidney disease, stage 3b, N25.81 - Secondary hyperparathyroidism of renal origin Calcium Today D63.1 - Anemia in chronic kidney disease, E11.21 - Type 2 diabetes mellitus with diabetic nephropathy, I10 - Essential (primary) hypertension, N18.32 - Chronic kidney disease, stage 3b, N25.81 - Secondary hyperparathyroidism of renal origin Creatinine Today D63.1 - Anemia in chronic kidney disease, E11.21 - Type 2 diabetes mellitus with diabetic nephropathy, I10 - Essential (primary) hypertension, N18.32 - Chronic kidney disease, stage 3b, N25.81 - Secondary hyperparathyroidism of renal origin Electrolytes Today D63.1 - Anemia in chronic kidney disease, E11.21 - Type 2 diabetes mellitus with diabetic nephropathy, I10 - Essential (primary) hypertension, N18.32 - Chronic kidney disease, stage 3b, N25.81 - Secondary hyperparathyroidism of renal origin Medications: New calcitriol 0.25 mcg PO 3XW 30 caps 3RF Changed From isosorbide mononitrate ER 30 mg PO DAILY To isosorbide mononitrate ER 60 mg PO DAILY 90 tabs 3RF Refilled dapagliflozin propanediol (Farxiga) 10 mg PO DAILY 90 tabs 5RF Coding Level of Care Code Est Pt Level 4 (10499) Diagnoses Stage 3b chronic kidney disease N18.32 Chronic kidney disease stage 3 subtype: stage 3b (GFR 30-44) Essential (primary) hypertension I10 Diabetic nephropathy associated with type 2 diabetes mellitus E11.21 Diabetes mellitus type: type 2 Anemia in stage 3b chronic kidney disease N18.32; D63.1 Chronic kidney disease stage: stage 3 (moderate) Chronic kidney disease stage 3 subtype: stage 3b (GFR 30-44) Secondary hyperparathyroidism (of renal origin) N25.81
== END 2024-06-01 10:51 | disposition home or self-care (01) ==
PROVIDERS: PCP Internal Medicine; Visit Provider Internal Medicine Nephrology
DX: N18.32 Chronic kidney disease, stage 3b (principal); I10 Essential (primary) hypertension; E11.21 Type 2 diabetes mellitus with diabetic nephropathy; D63.1 Anemia in chronic kidney disease; N25.81 Secondary hyperparathyroidism of renal origin
CPT/HCPCS: 99214

== ENCOUNTER → 2024-06-01 09:56 | Outpatient (BNVA) | payer MEDICARE, OTHER, SELFPAY | PROVIDERS: PCP Internal Medicine; Visit Provider Internal Medicine Nephrology | DX: E11.22 Type 2 diabetes mellitus with diabetic chronic kidney disease (principal); I12.9 Hypertensive chronic kidney disease with stage 1 through stage 4 chronic kidney disease, or unspecified chronic kidney disease; N18.32 Chronic kidney disease, stage 3b; E11.21 Type 2 diabetes mellitus with diabetic nephropathy; D63.1 Anemia in chronic kidney disease; N25.81 Secondary hyperparathyroidism of renal origin | CPT/HCPCS: 99212 ==

== ENCOUNTER 2024-07-13 10:13 | Outpatient (REF) | payer MEDICARE, OTHER, SELFPAY ==
[2024-07-13 18:39] LABS: Anion Gap 9 (12-20); Blood Urea Nitrogen 59 mg/dL (9-16); Calcium 8.9 mg/dL (8.4-10.2); Carbon Dioxide 21 mmol/L (22-29); Chloride 114 mmol/L (96-108); Estimated Glomerular Filt Rate 19; Sodium 139 mmol/L (135-145)
== END 2024-07-13 10:14 | disposition home or self-care (01) ==
LOC: HO.HKASLDS 10:13
PROVIDERS: Visit Provider Internal Medicine Nephrology
DX: I12.9 Hypertensive chronic kidney disease with stage 1 through stage 4 chronic kidney disease, or unspecified chronic kidney disease (principal); N18.32 Chronic kidney disease, stage 3b; N25.81 Secondary hyperparathyroidism of renal origin; D63.1 Anemia in chronic kidney disease; E11.21 Type 2 diabetes mellitus with diabetic nephropathy
CPT/HCPCS: 36415; 80051; 82310; 82565; 84520

== ENCOUNTER 2024-08-03 09:20 | Outpatient (AMB) | payer MEDICARE, OTHER, SELFPAY ==
[2024-08-03 09:27] VITALS: BP 140/60; PULSE 67; O2SAT 94; BMI 35.2
--- NOTE | 2024-08-03 09:27 | HO.NEPHOV_ITS ---
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 She has history of coronary disease, CABG and AVR. She has diabetic retinopathy. Her blood pressure control has been labile. She denies any chest pain, shortness of breath, proximal nocturnal dyspnea, orthopnea, nausea, vomiting, diarrhea or urinary symptoms. She lost 10 pounds on Ozempic but had to come off from side effects including hypoglycemias. She went off Farxiga at that time but restarted at 5 mg now. She was on Trulicity in the past but stopped due to side effects. Her recent serum creatinine has been around 2.4. Her losartan has been put on hold . She continues to have proteinuria over 3 g. She has not taken her medications this morning. [facility] Medical History Diabetic retinopathy Essential (primary) hypertension Aortic valve stenosis Chronic diastolic CHF (congestive heart failure) Type 2 diabetes mellitus CKD (chronic kidney disease) stage 3, GFR 30-59 ml/min HLD (hyperlipidemia) Surgical History Aortic valve replaced S/P quadruple vessel bypass Family History Father Diabetes Social History Alcohol intake: never Patient Tobacco Use Status: Never used Tobacco Review of Systems Const All systems reviewed & are unremarkable except as noted in HPI and below Physical Exam Vital Signs: Last Vital Signs Pulse 67 08/03/24 09:27 BP 146/60 H 08/03/24 09:27 Pulse Ox 94 08/03/24 09:27 Oxygen Delivery Method Room Air 08/03/24 09:27 BMI result Body Mass Index 35.2 Const General: comfortable and no acute distress Orientation/consciousness: patient oriented x3 HEENT Head: Yes normocephalic Mouth: Normal oral and palatal mucosa present Eyes EOM: EOMs intact bilaterally Neck Neck: Yes supple Resp Auscultation: clear to auscultation bilaterally Cardio Jugular venous distension: no JVD Rate: regular rate GI Palpation (GI): Soft to palpation Auscultation: normal bowel sounds General: Yes no CVA tenderness Back/Spine/Pelvis Back: no CVA tenderness Skin General skin exam: no rashes or lesions noted Neuro General: patient oriented x3 and moves all extremities Extrem General: Yes no pedal edema Results Reviewed Nephrology Results: Hgb 11.7 g/dl (12.0-16.0) L 12/17/23 WBC 7.0 X10*3/uL (4.8-10.8) 12/17/23 Plt Count 213 X10*3/uL (160-400) 12/17/23 Sodium 139 mmol/L (135-145) 07/13/24 Potassium 5.0 mmol/L (3.3-5.1) 07/13/24 Chloride 114 mmol/L (96-108) H 07/13/24 Carbon Dioxide 21 mmol/L (22-29) L 07/13/24 BUN 59 mg/dL (9-16) H 07/13/24 Creatinine 2.46 mg/dL (0.5-1.4) H 07/13/24 Calcium 8.9 mg/dL (8.4-10.2) 07/13/24 Phosphorus 4.1 mg/dL (2.7-4.5) 05/27/24 PTH Intact 398.7 pg/mL (8.7-77.1) H 05/27/24 Assessment & Plan Assessment & Plan (1) Secondary hyperparathyroidism (of renal origin): Code(s): N25.81 - Secondary hyperparathyroidism of renal origin Category: Medical (2) Anemia in chronic kidney disease: Code(s): N18.9 - Chronic kidney disease, unspecified; D63.1 - Anemia in chronic kidney disease Category: Medical Qualifiers: Chronic kidney disease stage: stage 3 (moderate) Chronic kidney disease stage 3 subtype: stage 3b (GFR 30-44) Qualified Code(s): N18.32 - Chronic kidney disease, stage 3b; D63.1 - Anemia in chronic kidney disease (3) Diabetic nephropathy: 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 She has history of MGUS as well. She is hypertensive and has history of high MITCHELL. She could continue current dose of Lasix as needed. She had declined renal biopsy in the past. She is on hydralazine, Imdur & Farxiga. Her losartan is currently on hold . She has no indication of initiating Procrit now. She should maintain good hydration. I discussed about declining renal functions and potential need for renal replacement in the future. She can continue calcitriol 0.2 mcg 3 times a week. I did not make any medication changes today. She should lose weight. Follow-up blood work ordered. All questions answered. Follow-up given Orders: Orders Creatinine 2 Months D63.1 - Anemia in chronic kidney disease, E11.21 - Type 2 diabetes mellitus with diabetic nephropathy, I10 - Essential (primary) hypertension, N18.32 - Chronic kidney disease, stage 3b, N25.81 - Secondary hyperparathyroidism of renal origin Parathyroid Hormone Intact 2 Months D63.1 - Anemia in chronic kidney disease, E11.21 - Type 2 diabetes mellitus with diabetic nephropathy, I10 - Essential (primary) hypertension, N18.32 - Chronic kidney disease, stage 3b, N25.81 - Secondary hyperparathyroidism of renal origin Blood Urea Nitrogen 2 Months D63.1 - Anemia in chronic kidney disease, E11.21 - Type 2 diabetes mellitus with diabetic nephropathy, I10 - Essential (primary) hypertension, N18.32 - Chronic kidney disease, stage 3b, N25.81 - Secondary hyperparathyroidism of renal origin Electrolytes 2 Months D63.1 - Anemia in chronic kidney disease, E11.21 - Type 2 diabetes mellitus with diabetic nephropathy, I10 - Essential (primary) hypertension, N18.32 - Chronic kidney disease, stage 3b, N25.81 - Secondary hyperparathyroidism of renal origin Calcium 2 Months D63.1 - Anemia in chronic kidney disease, E11.21 - Type 2 diabetes mellitus with diabetic nephropathy, I10 - Essential (primary) hypertension, N18.32 - Chronic kidney disease, stage 3b, N25.81 - Secondary hyperparathyroidism of renal origin Phosphorus 2 Months D63.1 - Anemia in chronic kidney disease, E11.21 - Type 2 diabetes mellitus with diabetic nephropathy, I10 - Essential (primary) hypertension, N18.32 - Chronic kidney disease, stage 3b, N25.81 - Secondary hyperparathyroidism of renal origin Vitamin D 25-OH Total 2 Months D63.1 - Anemia in chronic kidney disease, E11.21 - Type 2 diabetes mellitus with diabetic nephropathy, I10 - Essential (primary) hypertension, N18.32 - Chronic kidney disease, stage 3b, N25.81 - Secondary hyperparathyroidism of renal origin Coding Level of Care Code Est Pt Level 4 (06444) Diagnoses Secondary hyperparathyroidism (of renal origin) N25.81 Anemia in stage 3b chronic kidney disease N18.32; D63.1 Chronic kidney disease stage: stage 3 (moderate) Chronic kidney disease stage 3 subtype: stage 3b (GFR 30-44) Diabetic nephropathy associated with type 2 diabetes mellitus E11.21 Diabetes mellitus type: type 2 Essential (primary) hypertension I10 Stage 3b chronic kidney disease N18.32 Chronic kidney disease stage 3 subtype: stage 3b (GFR 30-44)
== END 2024-08-03 09:56 | disposition home or self-care (01) ==
PROVIDERS: PCP Internal Medicine; Visit Provider Internal Medicine Nephrology
DX: N25.81 Secondary hyperparathyroidism of renal origin (principal); N18.32 Chronic kidney disease, stage 3b; D63.1 Anemia in chronic kidney disease; E11.21 Type 2 diabetes mellitus with diabetic nephropathy; I10 Essential (primary) hypertension
CPT/HCPCS: 99214

== ENCOUNTER → 2024-08-03 09:20 | Outpatient (BNVA) | payer MEDICARE, OTHER, SELFPAY | PROVIDERS: PCP Internal Medicine; Visit Provider Internal Medicine Nephrology | DX: N25.81 Secondary hyperparathyroidism of renal origin (principal); E11.21 Type 2 diabetes mellitus with diabetic nephropathy; I12.9 Hypertensive chronic kidney disease with stage 1 through stage 4 chronic kidney disease, or unspecified chronic kidney disease; N18.32 Chronic kidney disease, stage 3b; D63.1 Anemia in chronic kidney disease | CPT/HCPCS: 99212 ==

== ENCOUNTER 2024-09-29 09:01 | Outpatient (REF) | payer MEDICARE, OTHER, SELFPAY ==
[2024-09-29 10:36] LABS: Anion Gap 13 (12-20); Blood Urea Nitrogen 65 mg/dL (9-16); Calcium 8.6 mg/dL (8.4-10.2); Carbon Dioxide 18 mmol/L (22-29); Chloride 114 mmol/L (96-108); Estimated Glomerular Filt Rate 15; Parathyroid Hormone Intact 394.4 pg/mL (8.7-77.1); Phosphorus 4.1 mg/dL (2.7-4.5); Potassium 4.4 mmol/L (3.3-5.1); Sodium 141 mmol/L (135-145)
[2024-09-29 10:53] LABS: Vitamin D 25-OH Total 16.2 ng/mL (>30)
== END 2024-09-29 09:02 | disposition home or self-care (01) ==
LOC: HO.HMGCLDS 09:01
PROVIDERS: PCP Internal Medicine; Visit Provider Internal Medicine Nephrology
DX: N25.81 Secondary hyperparathyroidism of renal origin (principal); N18.32 Chronic kidney disease, stage 3b; D63.1 Anemia in chronic kidney disease; E11.21 Type 2 diabetes mellitus with diabetic nephropathy; I10 Essential (primary) hypertension
CPT/HCPCS: 36415; 80051; 82306; 82310; 82565; 83970; 84100; 84520

== ENCOUNTER 2024-10-05 10:51 | Outpatient (AMB) | payer MEDICARE, OTHER, SELFPAY ==
--- NOTE | 2024-10-05 10:59 | HO.NEPHOV_ITS ---
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 She has history of coronary disease, CABG and AVR. She has diabetic retinopathy. Her blood pressure control has been better. She denies any chest pain, shortness of breath, proximal nocturnal dyspnea, orthopnea, nausea, vomiting, diarrhea or urinary symptoms. She is on Farxiga 10 mg now. She was on Trulicity in the past but stopped due to side effects. Her recent serum creatinine has been around 3. Her losartan has been put on hold . She continues to have proteinuria over 3 g. [facility] Medical History Diabetic retinopathy Essential (primary) hypertension Aortic valve stenosis Chronic diastolic CHF (congestive heart failure) Type 2 diabetes mellitus CKD (chronic kidney disease) stage 3, GFR 30-59 ml/min HLD (hyperlipidemia) Surgical History Aortic valve replaced S/P quadruple vessel bypass Family History Father Diabetes Social History Alcohol intake: never Patient Tobacco Use Status: Never used Tobacco Review of Systems Const All systems reviewed & are unremarkable except as noted in HPI and below Physical Exam Vital Signs: Last Vital Signs Pulse 63 10/05/24 11:00 BP 150/60 H 10/05/24 11:00 Pulse Ox 95 10/05/24 11:00 Oxygen Delivery Method Room Air 10/05/24 11:00 BMI result Body Mass Index 35.8 Const General: comfortable and no acute distress Orientation/consciousness: patient oriented x3 HEENT Head: Yes normocephalic Mouth: Normal oral and palatal mucosa present Eyes EOM: EOMs intact bilaterally Neck Neck: Yes supple Resp Auscultation: clear to auscultation bilaterally Cardio Jugular venous distension: no JVD Rate: regular rate GI Palpation (GI): Soft to palpation Auscultation: normal bowel sounds General: Yes no CVA tenderness Back/Spine/Pelvis Back: no CVA tenderness Skin General skin exam: no rashes or lesions noted Neuro General: patient oriented x3 and moves all extremities Extrem General: Yes no pedal edema Results Reviewed Nephrology Results: Sodium 141 mmol/L (135-145) 09/29/24 Potassium 4.4 mmol/L (3.3-5.1) 09/29/24 Chloride 114 mmol/L (96-108) H 09/29/24 Carbon Dioxide 18 mmol/L (22-29) L 09/29/24 BUN 65 mg/dL (9-16) H 09/29/24 Creatinine 3.05 mg/dL (0.5-1.4) H 09/29/24 Calcium 8.6 mg/dL (8.4-10.2) 09/29/24 Phosphorus 4.1 mg/dL (2.7-4.5) 09/29/24 PTH Intact 394.4 pg/mL (8.7-77.1) H 09/29/24 Assessment & Plan Assessment & Plan (1) Essential (primary) hypertension: Code(s): I10 - Essential (primary) hypertension Category: Medical (2) Diabetic nephropathy: Code(s): E11.21 - Type 2 diabetes mellitus with diabetic nephropathy Category: Medical Qualifiers: Diabetes mellitus type: type 2 Qualified Code(s): E11.21 - Type 2 diabetes mellitus with diabetic nephropathy (3) Anemia in chronic kidney disease: Code(s): N18.9 - Chronic kidney disease, unspecified; D63.1 - Anemia in chronic kidney disease Category: Medical Qualifiers: Chronic kidney disease stage: stage 3 (moderate) Chronic kidney disease stage 3 subtype: stage 3b (GFR 30-44) Qualified Code(s): N18.32 - Chronic kidney disease, stage 3b; D63.1 - Anemia in chronic kidney disease (4) Secondary hyperparathyroidism (of renal origin): Code(s): N25.81 - Secondary hyperparathyroidism of renal origin Category: Medical (5) CKD stage 4 due to type 2 diabetes mellitus: Code(s): E11.22 - Type 2 diabetes mellitus with diabetic chronic kidney disease; N18.4 - Chronic kidney disease, stage 4 (severe) Category: Medical Plan 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 She has history of MGUS as well. She is hypertensive and has history of high MITCHELL. She could continue current dose of Lasix as needed. She had declined renal biopsy in the past. She is on hydralazine, Imdur & Farxiga. Her losartan is currently on hold . She has no indication of initiating Procrit now. She should maintain good hydration. I discussed about declining renal functions and potential need for renal replacement in the future. I have arranged her to have PD education. She can continue calcitriol 0.2 mcg 3 times a week. I did not make any medication changes today. She should lose weight. Follow-up blood work and 24 hour urine for cr cl ordered. All questions answered. Orders: Orders Complete Blood Count Auto Diff 3 Weeks E11.22 - Type 2 diabetes mellitus with diabetic chronic kidney disease, N18.4 - Chronic kidney disease, stage 4 (severe) Phosphorus 3 Weeks E11.22 - Type 2 diabetes mellitus with diabetic chronic kidney disease, N18.4 - Chronic kidney disease, stage 4 (severe) Creatinine Clearance Urine 24U 3 Weeks E11.22 - Type 2 diabetes mellitus with diabetic chronic kidney disease, N18.4 - Chronic kidney disease, stage 4 (severe) Creatinine 3 Weeks E11.22 - Type 2 diabetes mellitus with diabetic chronic kidney disease, N18.4 - Chronic kidney disease, stage 4 (severe) Blood Urea Nitrogen 3 Weeks E11.22 - Type 2 diabetes mellitus with diabetic chronic kidney disease, N18.4 - Chronic kidney disease, stage 4 (severe) Electrolytes 3 Weeks E11.22 - Type 2 diabetes mellitus with diabetic chronic kidney disease, N18.4 - Chronic kidney disease, stage 4 (severe) Calcium 3 Weeks E11.22 - Type 2 diabetes mellitus with diabetic chronic kidney disease, N18.4 - Chronic kidney disease, stage 4 (severe) Coding Level of Care Code Est Pt Level 4 (03099) Diagnoses Essential (primary) hypertension I10 Diabetic nephropathy associated with type 2 diabetes mellitus E11.21 Diabetes mellitus type: type 2 Anemia in stage 3b chronic kidney disease N18.32; D63.1 Chronic kidney disease stage: stage 3 (moderate) Chronic kidney disease stage 3 subtype: stage 3b (GFR 30-44) Secondary hyperparathyroidism (of renal origin) N25.81 CKD stage 4 due to type 2 diabetes mellitus E11.22; N18.4
[2024-10-05 11:00] VITALS: BP 150/60; PULSE 63; O2SAT 95; BMI 35.8
== END 2024-10-05 11:36 | disposition home or self-care (01) ==
PROVIDERS: PCP Internal Medicine; Visit Provider Internal Medicine Nephrology
DX: I12.9 Hypertensive chronic kidney disease with stage 1 through stage 4 chronic kidney disease, or unspecified chronic kidney disease (principal); E11.21 Type 2 diabetes mellitus with diabetic nephropathy; N18.32 Chronic kidney disease, stage 3b; D63.1 Anemia in chronic kidney disease; N25.81 Secondary hyperparathyroidism of renal origin; E11.22 Type 2 diabetes mellitus with diabetic chronic kidney disease; N18.4 Chronic kidney disease, stage 4 (severe)
CPT/HCPCS: 99214

== ENCOUNTER → 2024-10-05 10:51 | Outpatient (BNVA) | payer MEDICARE, OTHER, SELFPAY | PROVIDERS: PCP Internal Medicine; Visit Provider Internal Medicine Nephrology | DX: I12.9 Hypertensive chronic kidney disease with stage 1 through stage 4 chronic kidney disease, or unspecified chronic kidney disease (principal); E11.319 Type 2 diabetes mellitus with unspecified diabetic retinopathy without macular edema; E11.22 Type 2 diabetes mellitus with diabetic chronic kidney disease; E11.21 Type 2 diabetes mellitus with diabetic nephropathy; N18.4 Chronic kidney disease, stage 4 (severe); R80.9 Proteinuria, unspecified; D63.1 Anemia in chronic kidney disease; N25.81 Secondary hyperparathyroidism of renal origin; Z95.1 Presence of aortocoronary bypass graft; Z95.2 Presence of prosthetic heart valve; Z79.899 Other long term (current) drug therapy | CPT/HCPCS: 99212 ==

== ENCOUNTER 2024-10-25 09:33 | Outpatient (REF) | payer MEDICARE, OTHER, SELFPAY ==
[2024-10-25 14:03] LABS: MANUAL DIFF FLAG NO
[2024-10-25 14:03] LABS: Total Volume 24 Hour Urine 875 mL
[2024-10-25 14:05] LABS: Basophils Percent Auto 0.6 % (0-2); Eosinophils Absolute Auto 0.2 X10*3/uL (0.0-0.4); Eosinophils Percent Auto 2.3 % (0-4); Hematocrit 30.5 % (37.0-47.0); Hemoglobin 9.7 g/dl (12.0-16.0); Imm Gran Abs Auto 0.02 X10*3/uL (0.00-0.03); Imm Gran Pct Auto 0.3 % (0.0-0.4); Lymphocytes Absolute Auto 1.4 X10*3/uL (1.2-4.9); Lymphocytes Percent Auto 20.9 % (20-40); Mean Corpuscular HGB Conc 31.8 g/dl (31.0-35.0); Mean Corpuscular Hemoglobin 29.8 pg (27.0-33.0); Mean Corpuscular Volume 93.8 fL (80.0-98.0); Mean Platelet Volume 12.8 fL (9.4-12.3); Monocytes Absolute Auto 0.8 X10*3/uL (0.1-1.2); Monocytes Percent Auto 12.7 % (2-11); Neutrophils Absolute Auto 4.1 x10*3/uL (2.0-8.3); Neutrophils Percent Auto 63.2 % (45-73); Platelet Count 212 X10*3/uL (160-400); Red Blood Count 3.25 X10*6/uL (4.20-5.50); Red Cell Distribution Width 13.7 % (11.0-16.0); White Blood Count 6.5 X10*3/uL (4.8-10.8)
[2024-10-25 14:20] LABS: Anion Gap 15 (12-20); Blood Urea Nitrogen 54 mg/dL (9-16); Calcium 8.9 mg/dL (8.4-10.2); Carbon Dioxide 21 mmol/L (22-29); Chloride 109 mmol/L (96-108); Estimated Glomerular Filt Rate 14; Potassium 4.7 mmol/L (3.3-5.1); Sodium 140 mmol/L (135-145)
[2024-10-25 14:29] LABS: Creatinine, 24Hr Urine 0.8 G/Day (1.0-2.0); Creatinine, mg/dL 90.64
[2024-10-25 22:12] LABS: Creatinine (CrCl) 3.19 mg/dL (0.5-1.4); Creatinine Clearance 17.2 mL/min (85-125)
== END 2024-10-25 09:34 | disposition home or self-care (01) ==
LOC: HO.HMGCLDS 09:33
PROVIDERS: PCP Internal Medicine; Visit Provider Internal Medicine Nephrology
DX: E11.22 Type 2 diabetes mellitus with diabetic chronic kidney disease (principal); N18.4 Chronic kidney disease, stage 4 (severe)
CPT/HCPCS: 36415; 80051; 82310; 82565; 82575; 84100; 84520; 85025

== ENCOUNTER 2024-11-04 09:14 | Outpatient (AMB) | payer MEDICARE, OTHER, SELFPAY ==
--- NOTE | 2024-11-04 09:43 | HO.NEPHOV_ITS ---
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 She has history of coronary disease, CABG and AVR. She has diabetic retinopathy. Her blood pressure control has been better. She denies any chest pain, shortness of breath, proximal nocturnal dyspnea, orthopnea, nausea, vomiting, diarrhea or urinary symptoms. She is on Farxiga 10 mg now. She was on Trulicity in the past but stopped due to side effects. Her recent serum creatinine has been around 3. Her losartan has been put on hold . She continues to have proteinuria over 3 g PFSH Medical History Diabetic retinopathy Essential (primary) hypertension Aortic valve stenosis Chronic diastolic CHF (congestive heart failure) Type 2 diabetes mellitus CKD (chronic kidney disease) stage 3, GFR 30-59 ml/min HLD (hyperlipidemia) Surgical History Aortic valve replaced S/P quadruple vessel bypass Family History Father Diabetes Social History Alcohol intake: never Patient Tobacco Use Status: Never used Tobacco Review of Systems Const All systems reviewed & are unremarkable except as noted in HPI and below Physical Exam Const General: comfortable and no acute distress Orientation/consciousness: patient oriented x3 HEENT Head: Yes normocephalic Mouth: Normal oral and palatal mucosa present Eyes EOM: EOMs intact bilaterally Neck Neck: Yes supple Resp Auscultation: clear to auscultation bilaterally Cardio Jugular venous distension: no JVD Rate: regular rate GI Palpation (GI): Soft to palpation Auscultation: normal bowel sounds General: Yes no CVA tenderness Back/Spine/Pelvis Back: no CVA tenderness Skin General skin exam: no rashes or lesions noted Neuro General: patient oriented x3 and moves all extremities Extrem General: Yes no pedal edema Results Reviewed Nephrology Results: Hgb 9.7 g/dl (12.0-16.0) L 10/25/24 WBC 6.5 X10*3/uL (4.8-10.8) 10/25/24 Plt Count 212 X10*3/uL (160-400) 10/25/24 Sodium 140 mmol/L (135-145) 10/25/24 Potassium 4.7 mmol/L (3.3-5.1) 10/25/24 Chloride 109 mmol/L (96-108) H 10/25/24 Carbon Dioxide 21 mmol/L (22-29) L 10/25/24 BUN 54 mg/dL (9-16) H 10/25/24 Creatinine 3.19 mg/dL (0.5-1.4) H 10/25/24 Calcium 8.9 mg/dL (8.4-10.2) 10/25/24 Phosphorus 4.0 mg/dL (2.7-4.5) 10/25/24 PTH Intact 394.4 pg/mL (8.7-77.1) H 09/29/24 Assessment & Plan Assessment & Plan (1) CKD stage 4 due to type 2 diabetes mellitus: Code(s): E11.22 - Type 2 diabetes mellitus with diabetic chronic kidney disease; N18.4 - Chronic kidney disease, stage 4 (severe) Category: Medical (2) Secondary hyperparathyroidism (of renal origin): Code(s): N25.81 - Secondary hyperparathyroidism of renal origin Category: Medical (3) Anemia in chronic kidney disease: Code(s): N18.9 - Chronic kidney disease, unspecified; D63.1 - Anemia in chronic kidney disease Category: Medical Qualifiers: Chronic kidney disease stage: stage 3 (moderate) Chronic kidney disease stage 3 subtype: stage 3b (GFR 30-44) Qualified Code(s): N18.32 - Chronic kidney disease, stage 3b; D63.1 - Anemia in chronic kidney disease (4) Diabetic nephropathy: Code(s): E11.21 - Type 2 diabetes mellitus with diabetic nephropathy Category: Medical Qualifiers: Diabetes mellitus type: type 2 Qualified Code(s): 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 She has history of MGUS as well. She is hypertensive and has history of high MITCHELL. She could continue current dose of Lasix as needed. She had declined renal biopsy in the past. She is on hydralazine, Imdur & Farxiga. Her losartan is currently on hold . She has no indication of initiating Procrit now. She should maintain good hydration. I discussed about declining renal functions and potential need for renal replacement in the future. She had PD education. She can continue calcitriol 0.2 mcg 3 times a week. I did not make any medication changes today. She should lose weight. Follow-up blood work ordered. Her 24 hour urine for cr cl was 17 mls/mt. All questions answered Orders: Orders IRON PROFILE 2 Months D63.1 - Anemia in chronic kidney disease, E11.21 - Type 2 diabetes mellitus with diabetic nephropathy, E11.22 - Type 2 diabetes mellitus with diabetic chronic kidney disease, N18.32 - Chronic kidney disease, stage 3b, N18.4 - Chronic kidney disease, stage 4 (severe), N25.81 - Secondary hyperparathyroidism of renal origin Ferritin 2 Months D63.1 - Anemia in chronic kidney disease, E11.21 - Type 2 diabetes mellitus with diabetic nephropathy, E11.22 - Type 2 diabetes mellitus with diabetic chronic kidney disease, N18.32 - Chronic kidney disease, stage 3b, N18.4 - Chronic kidney disease, stage 4 (severe), N25.81 - Secondary hyperparathyroidism of renal origin Complete Blood Count Auto Diff 2 Months D63.1 - Anemia in chronic kidney disease, E11.21 - Type 2 diabetes mellitus with diabetic nephropathy, E11.22 - Type 2 diabetes mellitus with diabetic chronic kidney disease, N18.32 - Chronic kidney disease, stage 3b, N18.4 - Chronic kidney disease, stage 4 (severe), N25.81 - Secondary hyperparathyroidism of renal origin Creatinine 2 Months D63.1 - Anemia in chronic kidney disease, E11.21 - Type 2 diabetes mellitus with diabetic nephropathy, E11.22 - Type 2 diabetes mellitus with diabetic chronic kidney disease, N18.32 - Chronic kidney disease, stage 3b, N18.4 - Chronic kidney disease, stage 4 (severe), N25.81 - Secondary hyperparathyroidism of renal origin Blood Urea Nitrogen 2 Months D63.1 - Anemia in chronic kidney disease, E11.21 - Type 2 diabetes mellitus with diabetic nephropathy, E11.22 - Type 2 diabetes mellitus with diabetic chronic kidney disease, N18.32 - Chronic kidney disease, stage 3b, N18.4 - Chronic kidney disease, stage 4 (severe), N25.81 - Secondary hyperparathyroidism of renal origin Electrolytes 2 Months D63.1 - Anemia in chronic kidney disease, E11. - Type 2 diabetes mellitus with diabetic nephropathy, E11. - Type 2 diabetes mellitus with diabetic chronic kidney disease, N18.32 - Chronic kidney disease, stage 3b, N18.4 - Chronic kidney disease, stage 4 (severe), N25.81 - Secondary hyperparathyroidism of renal origin Coding Level of Care Code Est Pt Level 4 (66434) Diagnoses CKD stage 4 due to type 2 diabetes mellitus E11.; N18.4 Secondary hyperparathyroidism (of renal origin) N25.81 Anemia in stage 3b chronic kidney disease N18.32; D63.1 Chronic kidney disease stage: stage 3 (moderate) Chronic kidney disease stage 3 subtype: stage 3b (GFR 30-44) Diabetic nephropathy associated with type 2 diabetes mellitus E11. Diabetes mellitus type: type 2
[2024-11-04 09:45] VITALS: BP 150/60; PULSE 59; O2SAT 95; BMI 34.6
== END 2024-11-04 10:00 | disposition home or self-care (01) ==
PROVIDERS: PCP Internal Medicine; Visit Provider Internal Medicine Nephrology
DX: E11.22 Type 2 diabetes mellitus with diabetic chronic kidney disease (principal); N18.4 Chronic kidney disease, stage 4 (severe); N25.81 Secondary hyperparathyroidism of renal origin; N18.32 Chronic kidney disease, stage 3b; D63.1 Anemia in chronic kidney disease; E11.21 Type 2 diabetes mellitus with diabetic nephropathy
CPT/HCPCS: 99214

== ENCOUNTER → 2024-11-04 09:14 | Outpatient (BNVA) | payer MEDICARE, OTHER, SELFPAY | PROVIDERS: PCP Internal Medicine; Visit Provider Internal Medicine Nephrology | DX: E11.22 Type 2 diabetes mellitus with diabetic chronic kidney disease (principal); N18.4 Chronic kidney disease, stage 4 (severe); E11.21 Type 2 diabetes mellitus with diabetic nephropathy; D63.1 Anemia in chronic kidney disease; N25.81 Secondary hyperparathyroidism of renal origin | CPT/HCPCS: 99212 ==

== ENCOUNTER 2024-12-29 09:27 | Outpatient (REF) | payer MEDICARE, OTHER, SELFPAY ==
--- OUTSIDE RECORDS SUMMARY | 2024-12-29 10:45 | XMS_ITS | Clinical Summary ---
Author Organization [facility] Address [address] [facility] [address] [place] [address] Phone Care Team Providers Care Fur Designer Name Role Phone Barbara Winchester MD Primary Care Provider + Allergies Active Allergy Reactions Criticality Noted Date Comments Adhesive Tape Rash Low 12/25/2021 Amlodipine 12/25/2021 Other reaction(s): edema Canagliflozin 12/25/2021 Hydrochlorothiazide Other (see comments) 2020 Lisinopril Other (see comments) 04/03/2021 Medications aspirin (ST DARLING) 81 MG EC tablet Take 1 tablet by mouth 1 (one) time each day Active atorvastatin (LIPITOR) 80 MG tablet Take 1 tablet by mouth 1 (one) time each day Active carvedilol (COREG) 6.25 MG tablet Take 1 tablet by mouth 2 (two) times a day 04/02/2019 Active ezetimibe (ZETIA) 10 MG tablet Take 1 tablet by mouth 1 (one) time each day Active isosorbide mononitrate (IMDUR) 30 MG 24 hr tablet Take 30 mg by mouth 1 (one) time each day Do not crush or chew. Active losartan (COZAAR) 25 MG tablet TAKE ONE TABLET BY MOUTH EVERY DAY 90 tablet 3 01/24/2022 Active furosemide (LASIX) 40 MG tablet Take 1 tablet (40 mg total) by mouth every other day 45 tablet 3 10/07/2022 Active ergocalciferol 1.25 MG (21505 UT) capsule Take 50,000 Units by mouth 1 (one) time per week Active Ferrous Sulfate ER 142 (45 Fe) MG tablet controlled-relea se Take 1 tablet by mouth 1 (one) time each day Active hydrALAZINE 25 MG tabletIndication s:Stage 3b chronic kidney disease (HCC) TAKE ONE TABLET BY MOUTH TWICE A DAY IN THE MORNING AND IN THE EVENING 60 tablet 3 07/14/2023 Active Active Problems Problem Noted Date Diagnosed Date Anxiety 03/28/2023 Stage 3a chronic kidney disease 12/25/2021 Hypertension 08/21/2021 Vitamin D deficiency, not otherwise specified Secondary hyperparathyroidism of renal origin Stage 3b chronic kidney disease 04/03/2021 Edema 04/03/2021 Essential hypertension 04/03/2021 Hypertensive renal disease 04/03/2021 Proteinuria 04/03/2021 Renal disorder due to type 2 diabetes mellitus 0 04/03/2021 Type 2 diabetes mellitus with diabetic nephropat hy 04/03/2021 Resolved Problems Problem Noted Date Diagnosed Date Resolved Date Aortic valve stenosis 12/25/20212021 Body mass index 30+ - obesity 12/25/2021 03/28/2022 Cardiomyopathy 12/25/2021 03/28/2022 Coronary arteriosclerosis 12/25/2021 Retinopathy due to diabetes mellitus 12/25/2021 03/28/2022 Morbid obesity 12/25/2021 03/28/2022 Multiple nodules of lung 12/25/2021 Steatosis of liver 12/25/2021 Dyslipidemia 09/25/2021 03/28/2022 Type 2 diabetes mellitus 09/25/2021 Immunizations Name Administration Dates Next Due Pfizer SARS-COV-2 09/23/2021,,02/11/2021,01/21/2021 ,01/21/2021 Pneumococcal Conjugate 13-Valent 08/14/2019 Td, Unspecified 09/02/2018 Family History Medical History Relation Comments Diabetes Father Heart disease Father Kidney disease Father Hypertension Sibling Relation Status Comments Father Sibling Social History Tobacco Use Types Packs/Day Years Used Date Smoking Tobacco: Never Smokeless Tobacco: Never Alcohol Use Standard Drinks/Week Comments Yes 0 (1 standard drink = 0.6 oz pur e alcohol) Comments Unknown Sex and Gender Information Value Date Recorded Sex Assigned at Not on file Legal Sex Female 4:54 PM EST Gender Identity Not on file Sexual Orientation Not on file Last Filed Vital Signs Vital Sign Reading Time Taken Comments Blood Pressure 160/52 07/08/2023 2:00 PM EDT Pulse 54 07/08/2023 2:00 PM EDT Temperature - - Respiratory Rate - - Oxygen Saturation 97% 02/06/2023 2:33 PM EDT Inhaled Oxygen Concentration - - Weight 91.2 kg (201 lb) 07/08/2023 2:00 PM EDT Height 160 cm (5' 3 ) 02/06/2023 2:33 PM EDT Body Mass Index 35.61 02/06/2023 2:33 PM EDT Plan of Treatment Health Maintenance Due Date Last Done Comments Breast Cancer Screening 1950 Colorectal Cancer Screening: Annual FOBT 1999 Colorectal Cancer Screening: Colonoscopy 1999 Colorectal Cancer Screening: Sigmoidoscopy 1999 Pneumococcal Vaccine: 65+ Ye ars (2 of 2 - PPSV23 or PCV20) 10/09/2019 08/14/2019 Diabetes: Hemoglobin A1C 12/03/2020 05/15/2020 Diabetes: Ophthalmology Exam 12/03/2020 Diabetes: Pedal Pulse Checked 12/03/2020 Diabetes: Sensory Foot Exam 12/03/2020 Diabetes: Visual Foot Exam 12/03/2020 Influenza Vaccine (#1) 2024 Hepatitis B Vaccine Aged Out No longe r eligible based on patient's age to complete this topic Procedures Procedure Name Priority Date/Time Associated Diagnosis Comments HEMOGLOBIN A1C Routine 05/15/2020 8:26 AM EDT from Last 3 Months or Most Recently Relevant to Health Maintenance Results * Hemoglobin A1c (05/15/2020 8:26 AM EDT) Hemoglobin A1C 6.5 % ELIDA Comment: ?Hemoglobin A1C Reference Range ? Adults: ??4.8 - 6.0 % ? Non diabetic: ??< 6.0 % ? Goal: ??< 7.0 % Additional Action Suggested: ??> 8.0 % Note: ??Hemoglobin A1c results are invalid for patients ? with abnormal amounts of HbF. ??Blood transfusions ? may impact the HbA1c concentration in the patient ? sample. Estimated Average Glucose 140 MG/DL ELIDA Comment: eAG = Estimated average glucose which is %A1C expressed as average glucose, using the formula of the B1F-Nmgfayb Average Glucose study (ADAG), Diabetes Care, Vol.31,#8, Jun. 2007 05/15/2020 8:26 AM EDT us Alma Delia Ford MD LAB BLOOD ORDERABLES Final Resu lt ELIDA from Last 3 Months or Most Recently Relevant to Health Maintenance Insurance [facility] MEDICARE [facility] MEDICARE Care Teams Fur Designer Relationship Specialty Start Date End Date Barbara Winchester MD PCP - General Dental Quality Technician 04/01/23
[2024-12-29 18:37] LABS: MANUAL DIFF FLAG NO
[2024-12-29 18:55] LABS: Basophils Percent Auto 0.4 % (0-2); Eosinophils Absolute Auto 0.1 X10*3/uL (0.0-0.4); Eosinophils Percent Auto 1.6 % (0-4); Hemoglobin 9.3 g/dl (12.0-16.0); Imm Gran Abs Auto 0.02 X10*3/uL (0.00-0.03); Imm Gran Pct Auto 0.3 % (0.0-0.4); Lymphocytes Absolute Auto 1.4 X10*3/uL (1.2-4.9); Lymphocytes Percent Auto 19.9 % (20-40); Mean Corpuscular Hemoglobin 28.4 pg (27.0-33.0); Mean Corpuscular Volume 91.7 fL (80.0-98.0); Mean Platelet Volume 12.7 fL (9.4-12.3); Monocytes Absolute Auto 0.6 X10*3/uL (0.1-1.2); Monocytes Percent Auto 8.7 % (2-11); Neutrophils Absolute Auto 4.9 x10*3/uL (2.0-8.3); Neutrophils Percent Auto 69.1 % (45-73); Platelet Count 206 X10*3/uL (160-400); Red Blood Count 3.27 X10*6/uL (4.20-5.50); Red Cell Distribution Width 14.6 % (11.0-16.0)
[2024-12-29 19:17] LABS: Anion Gap 13 (12-20); Blood Urea Nitrogen 53 mg/dL (9-16); Carbon Dioxide 17 mmol/L (22-29); Chloride 115 mmol/L (96-108); Estimated Glomerular Filt Rate 16; Iron 44 mcg/dL (30-160); Percent Iron Saturation 20 % (15-50); Potassium 4.4 mmol/L (3.3-5.1); Sodium 141 mmol/L (135-145); Total Iron Binding Capacity 225 mcg/dL (228-428); Unsaturated Iron Binding 181 ug/dL
[2024-12-29 19:23] LABS: Ferritin 115 ng/mL (10-250)
== END 2024-12-29 09:28 | disposition home or self-care (01) ==
LOC: HO.HKASLDS 09:27
PROVIDERS: Visit Provider Internal Medicine Nephrology
DX: E11.22 Type 2 diabetes mellitus with diabetic chronic kidney disease (principal); N18.4 Chronic kidney disease, stage 4 (severe); N25.81 Secondary hyperparathyroidism of renal origin; N18.32 Chronic kidney disease, stage 3b; D63.1 Anemia in chronic kidney disease; E11.21 Type 2 diabetes mellitus with diabetic nephropathy
CPT/HCPCS: 36415; 80051; 82565; 82728; 83540; 84520; 85025

== ENCOUNTER 2025-01-04 09:40 | Outpatient (AMB) | payer MEDICARE, OTHER, SELFPAY ==
--- NOTE | 2025-01-04 09:43 | HO.NEPHOV ---
Vital Signs 01/04/25 09:46 Height 5 ft 3 in Weight 189 lb 4 oz BMI 33.5 BP 132/70 Blood Pressure Location Lt brachial Position Sitting Pulse Oximetry (%) 97 Oxygen Delivery Method Room Air Intake Visit Reasons: 2 mnts-Conf Insurance Verification Specialist Required: No Accompanied by: Self / Same As Patient Allergies liraglutide [Victoza] Allergy (Unknown, Verified 01/04/25 09:46) Unknown lisinopril [LISINOPRIL] Allergy (Unknown, Verified 01/04/25 09:46) cough adhisive Allergy (Unknown, Uncoded 10/20/23 14:28) Unknown HPI Comments Details: Annabelle was seen in the office in follow-up for chronic kidney disease, proteinuria and hypertension. She has history of coronary disease, CABG and AVR. She has diabetic retinopathy. Her blood pressure control has been better. She denies any chest pain, shortness of breath, proximal nocturnal dyspnea, orthopnea, nausea, vomiting, diarrhea or urinary symptoms. She is on Farxiga 10 mg now. She was on Trulicity in the past but stopped due to side effects. Her recent serum creatinine has been around 3. Her losartan has been put on hold . She continues to have proteinuria over 3 g PFSH Medical History Diabetic retinopathy Essential (primary) hypertension Aortic valve stenosis Chronic diastolic CHF (congestive heart failure) Type 2 diabetes mellitus CKD (chronic kidney disease) stage 3, GFR 30-59 ml/min HLD (hyperlipidemia) Surgical History Aortic valve replaced S/P quadruple vessel bypass Family History Father Diabetes Social History Alcohol intake: never Patient Tobacco Use Status: Never used Tobacco Review of Systems Const All systems reviewed & are unremarkable except as noted in HPI and below Physical Exam Const General: comfortable and no acute distress Orientation/consciousness: patient oriented x3 HEENT Head: Yes normocephalic Mouth: Normal oral and palatal mucosa present Eyes EOM: EOMs intact bilaterally Neck Neck: Yes supple Resp Auscultation: clear to auscultation bilaterally Cardio Jugular venous distension: no JVD Rate: regular rate GI Palpation (GI): Soft to palpation Auscultation: normal bowel sounds General: Yes no CVA tenderness Back/Spine/Pelvis Back: no CVA tenderness Skin General skin exam: no rashes or lesions noted Neuro General: patient oriented x3 and moves all extremities Extrem General: Yes no pedal edema Office Meds epoetin kristopher-epbx 10,000 unit/mL injection solution Performing Provider: Romeo Ni MD Performing Location: [facility] Administered by: Romeo Ni MD on 01/04/25 10:06 Dose Route Admin Location Dispensed Lot Number Expiration Date [facility] Production Associate 20,000 unit subcut LUE 2 mL [id number] 03/03/26 8908-9175-02 [employer] Results Reviewed Nephrology Results: Hgb 9.3 g/dl (12.0-16.0) L 12/29/24 WBC 7.0 X10*3/uL (4.8-10.8) 12/29/24 Plt Count 206 X10*3/uL (160-400) 12/29/24 Sodium 141 mmol/L (135-145) 12/29/24 Potassium 4.4 mmol/L (3.3-5.1) 12/29/24 Chloride 115 mmol/L (96-108) H 12/29/24 Carbon Dioxide 17 mmol/L (22-29) L 12/29/24 BUN 53 mg/dL (9-16) H 12/29/24 Creatinine 2.94 mg/dL (0.5-1.4) H 12/29/24 Calcium 8.9 mg/dL (8.4-10.2) 10/25/24 Phosphorus 4.0 mg/dL (2.7-4.5) 10/25/24 PTH Intact 394.4 pg/mL (8.7-77.1) H 09/29/24 Assessment & Plan Assessment & Plan (1) CKD stage 4 due to type 2 diabetes mellitus: Code(s): E11.22 - Type 2 diabetes mellitus with diabetic chronic kidney disease; N18.4 - Chronic kidney disease, stage 4 (severe) Category: Medical (2) Secondary hyperparathyroidism (of renal origin): Code(s): N25.81 - Secondary hyperparathyroidism of renal origin Category: Medical (3) Anemia in chronic kidney disease: Code(s): N18.9 - Chronic kidney disease, unspecified; D63.1 - Anemia in chronic kidney disease Category: Medical Qualifiers: Chronic kidney disease stage: stage 3 (moderate) Chronic kidney disease stage 3 subtype: stage 3b (GFR 30-44) Qualified Code(s): N18.32 - Chronic kidney disease, stage 3b; D63.1 - Anemia in chronic kidney disease (4) Diabetic nephropathy: Code(s): E11.21 - Type 2 diabetes mellitus with diabetic nephropathy Category: Medical Qualifiers: Diabetes mellitus type: type 2 Qualified Code(s): E11.21 - Type 2 diabetes mellitus with diabetic nephropathy (5) Essential (primary) hypertension: Code(s): I10 - Essential (primary) hypertension Category: Medical Plan 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 She has history of MGUS as well. She is hypertensive and has history of high MITCHELL. She could continue current dose of Lasix as needed. She had declined renal biopsy in the past. She is on hydralazine, Imdur & Farxiga. Her losartan is currently on hold . She has no indication of initiating Procrit now. She should maintain good hydration. I discussed about declining renal functions and potential need for renal replacement in the future. She had dialysis education. She can continue calcitriol 0.2 mcg 3 times a week. I did not make any medication changes today. She should lose weight. Follow-up blood work ordered. Her 24 hour urine for cr cl was 17 mls/mt. All questions answered Orders: Orders Complete Blood Count Auto Diff 2 Months D63.1 - Anemia in chronic kidney disease, E11.21 - Type 2 diabetes mellitus with diabetic nephropathy, E11.22 - Type 2 diabetes mellitus with diabetic chronic kidney disease, I10 - Essential (primary) hypertension, N18.32 - Chronic kidney disease, stage 3b, N18.4 - Chronic kidney disease, stage 4 (severe), N25.81 - Secondary hyperparathyroidism of renal origin Parathyroid Hormone Intact 2 Months D63.1 - Anemia in chronic kidney disease, E11.21 - Type 2 diabetes mellitus with diabetic nephropathy, E11.22 - Type 2 diabetes mellitus with diabetic chronic kidney disease, I10 - Essential (primary) hypertension, N18.32 - Chronic kidney disease, stage 3b, N18.4 - Chronic kidney disease, stage 4 (severe), N25.81 - Secondary hyperparathyroidism of renal origin Electrolytes 2 Months D63.1 - Anemia in chronic kidney disease, E11.21 - Type 2 diabetes mellitus with diabetic nephropathy, E11.22 - Type 2 diabetes mellitus with diabetic chronic kidney disease, I10 - Essential (primary) hypertension, N18.32 - Chronic kidney disease, stage 3b, N18.4 - Chronic kidney disease, stage 4 (severe), N25.81 - Secondary hyperparathyroidism of renal origin Blood Urea Nitrogen 2 Months D63.1 - Anemia in chronic kidney disease, E11.21 - Type 2 diabetes mellitus with diabetic nephropathy, E11.22 - Type 2 diabetes mellitus with diabetic chronic kidney disease, I10 - Essential (primary) hypertension, N18.32 - Chronic kidney disease, stage 3b, N18.4 - Chronic kidney disease, stage 4 (severe), N25.81 - Secondary hyperparathyroidism of renal origin Creatinine 2 Months D63.1 - Anemia in chronic kidney disease, E11.21 - Type 2 diabetes mellitus with diabetic nephropathy, E11.22 - Type 2 diabetes mellitus with diabetic chronic kidney disease, I10 - Essential (primary) hypertension, N18.32 - Chronic kidney disease, stage 3b, N18.4 - Chronic kidney disease, stage 4 (severe), N25.81 - Secondary hyperparathyroidism of renal origin AMB Epoetin Injection Practice Supplied Today D63.1 - Anemia in chronic kidney disease, N18.32 - Chronic kidney disease, stage 3b Calcium 2 Months D63.1 - Anemia in chronic kidney disease, E11.21 - Type 2 diabetes mellitus with diabetic nephropathy, E11.22 - Type 2 diabetes mellitus with diabetic chronic kidney disease, I10 - Essential (primary) hypertension, N18.32 - Chronic kidney disease, stage 3b, N18.4 - Chronic kidney disease, stage 4 (severe), N25.81 - Secondary hyperparathyroidism of renal origin Medications: New epoetin kristopher-epbx 20,000 units (2 mL) subcut ONCE 2 mL 0RF D63.1 - Anemia in chronic kidney disease, N18.32 - Chronic kidney disease, stage 3b Coding Level of Care Code Est Pt Level 4 (23848) Diagnoses CKD stage 4 due to type 2 diabetes mellitus E11.22; N18.4 Secondary hyperparathyroidism (of renal origin) N25.81 Anemia in stage 3b chronic kidney disease N18.32; D63.1 Chronic kidney disease stage: stage 3 (moderate) Chronic kidney disease stage 3 subtype: stage 3b (GFR 30-44) Diabetic nephropathy associated with type 2 diabetes mellitus E11.21 Diabetes mellitus type: type 2 Essential (primary) hypertension I10
[2025-01-04 09:46] VITALS: BP 132/70; O2SAT 97; BMI 33.5
--- OUTSIDE RECORDS SUMMARY | 2025-01-04 10:55 | XMS_ITS | Clinical Summary ---
Author Organization [facility] Address [address] [facility] [address] [place] [address] Phone Care Team Providers Care Flotation Tender Helper Name Role Phone Barbara Winchester MD Primary [...] tablet 3 10/07/2022 Active ergocalciferol 1.25 MG (47844 UT) capsule Take 50,000 Units by mouth [...] average glucose, using the formula of the V2N-Wnqgjvp Average Glucose study (ADAG), Diabetes Care, Vol.31,#8, Jun. 2007 05/15/2020 8:26 AM EDT us Alma Delia Ford MD LAB BLOOD ORDERABLES Final Resu lt ELIDA from Last 3 Months or Most Recently Relevant to Health Maintenance Insurance [facility] MEDICARE [facility] MEDICARE Care Teams Flotation Tender Helper Relationship Specialty Start Date End Date Barbara Winchester MD PCP - General Dental Stonehand 04/01/23
== END 2025-01-04 10:12 | disposition home or self-care (01) ==
PROVIDERS: PCP Internal Medicine; Visit Provider Internal Medicine Nephrology
DX: E11.22 Type 2 diabetes mellitus with diabetic chronic kidney disease (principal); N18.4 Chronic kidney disease, stage 4 (severe); N25.81 Secondary hyperparathyroidism of renal origin; N18.32 Chronic kidney disease, stage 3b; D63.1 Anemia in chronic kidney disease; E11.21 Type 2 diabetes mellitus with diabetic nephropathy; I12.9 Hypertensive chronic kidney disease with stage 1 through stage 4 chronic kidney disease, or unspecified chronic kidney disease
CPT/HCPCS: 99214

== ENCOUNTER → 2025-01-04 09:40 | Outpatient (BNVA) | payer MEDICARE, OTHER, SELFPAY | PROVIDERS: PCP Internal Medicine; Visit Provider Internal Medicine Nephrology | DX: E11.22 Type 2 diabetes mellitus with diabetic chronic kidney disease (principal); I12.9 Hypertensive chronic kidney disease with stage 1 through stage 4 chronic kidney disease, or unspecified chronic kidney disease; N18.4 Chronic kidney disease, stage 4 (severe); D63.1 Anemia in chronic kidney disease; E11.21 Type 2 diabetes mellitus with diabetic nephropathy; N25.81 Secondary hyperparathyroidism of renal origin | CPT/HCPCS: 96372; 99212; Q5106 ==

== ENCOUNTER 2025-02-10 15:05 | Outpatient (AMB) | payer MEDICARE, OTHER, SELFPAY ==
[2025-02-10 15:06] VITALS: BP 170/58; PULSE 68; O2SAT 97; BMI 32.8
--- NOTE | 2025-02-10 15:06 | HO.NEPHOV_ITS ---
Vital Signs 02/10/25 15:06 Height 5 ft 3 in Weight 185 lb 2 oz BMI 32.8 BP 170/58 H Blood Pressure Location Rt brachial Position Sitting Pulse 68 Pulse Source Pulse Oximeter Pulse Oximetry (%) 97 Oxygen Delivery Method Room Air Intake Visit Reasons: High BP readings Supervisor Customer Complaint Service Required: No Accompanied by: Self / Same As Patient Allergies liraglutide [Victoza] Allergy (Unknown, Verified 02/10/25 15:08) Unknown lisinopril [LISINOPRIL] Allergy (Unknown, Verified 02/10/25 15:08) cough adhisive Allergy (Unknown, Uncoded 10/20/23 14:28) Unknown Do you need a note to return to daycare/school/sports/work: No HPI Comments Details: Annabelle was seen in the office in follow-up for chronic kidney disease, proteinuria and hypertension. Her BP has been high in the mornings. She has history of coronary disease, CABG and AVR. She has diabetic retinopathy. Her blood pressure control has been better. She denies any chest pain, shortness of breath, proximal nocturnal dyspnea, orthopnea, nausea, vomiting, diarrhea or urinary symptoms. She is on Farxiga 10 mg now. She was on Trulicity in the past but stopped due to side effects. Her recent serum creatinine has been around 3. Her losartan has been put on hold . She continues to have proteinu rolando over 3 g. She has SOBE which is getting worse now. She denies PND or worsening edema. She has not had a sleep study. [facility] Medical History Diabetic retinopathy Essential (primary) hypertension Aortic valve stenosis Chronic diastolic CHF (congestive heart failure) Type 2 diabetes mellitus CKD (chronic kidney disease) stage 3, GFR 30-59 ml/min HLD (hyperlipidemia) Surgical History Aortic valve replaced S/P quadruple vessel bypass Family History Father Diabetes Social History Alcohol intake: never Patient Tobacco Use Status: Never used Tobacco Physical Exam Vital Signs: Last Vital Signs Pulse 68 02/10/25 15:06 BP 170/58 H 02/10/25 15:06 Pulse Ox 97 02/10/25 15:06 Oxygen Delivery Method Room Air 02/10/25 15:06 BMI result Body Mass Index 32.8 Results Reviewed Nephrology Results: Hgb 9.3 g/dl (12.0-16.0) L 12/29/24 WBC 7.0 X10*3/uL (4.8-10.8) 12/29/24 Plt Count 206 X10*3/uL (160-400) 12/29/24 Sodium 141 mmol/L (135-145) 12/29/24 Potassium 4.4 mmol/L (3.3-5.1) 12/29/24 Chloride 115 mmol/L (96-108) H 12/29/24 Carbon Dioxide 17 mmol/L (22-29) L 12/29/24 BUN 53 mg/dL (9-16) H 12/29/24 Creatinine 2.94 mg/dL (0.5-1.4) H 12/29/24 Calcium 8.9 mg/dL (8.4-10.2) 10/25/24 Phosphorus 4.0 mg/dL (2.7-4.5) 10/25/24 PTH Intact 394.4 pg/mL (8.7-77.1) H 09/29/24 Assessment & Plan Assessment & Plan (1) CKD stage 4 due to type 2 diabetes mellitus: Code(s): E11.22 - Type 2 diabetes mellitus with diabetic chronic kidney disease; N18.4 - Chronic kidney disease, stage 4 (severe) Category: Medical (2) Secondary hyperparathyroidism (of renal origin): Code(s): N25.81 - Secondary hyperparathyroidism of renal origin Category: Medical (3) Anemia in chronic kidney disease: Code(s): N18.9 - Chronic kidney disease, unspecified; D63.1 - Anemia in chronic kidney disease Category: Medical Qualifiers: Chronic kidney disease stage: stage 3 (moderate) Chronic kidney disease stage 3 subtype: stage 3b (GFR 30-44) Qualified Code(s): N18.32 - Chronic kidney disease, stage 3b; D63.1 - Anemia in chronic kidney disease (4) Diabetic nephropathy: Code(s): E11.21 - Type 2 diabetes mellitus with diabetic nephropathy Category: Medical Qualifiers: Diabetes mellitus type: type 2 Qualified Code(s): E11.21 - Type 2 diabetes mellitus with diabetic nephropathy (5) Essential (primary) hypertension: Code(s): I10 - Essential (primary) hypertension Category: Medical Plan 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 She has history of MGUS as well. She is hypertensive and has history of high MITCHELL. I increased her Isosorbide to 120 mg daily. She needs a sleep study. She is going to reach out to Dr Shaquille Davila for F/U & ECHO. She could continue current dose of Lasix as needed. She had declined renal biopsy in the past. She is on Farxiga. Her losartan is currently on hold . She has no indication of initiating Procrit now. She should maintain good hydration. I discussed about declining renal functions and potential need for renal replacement in the future. She had dialysis education. She can continue calcitriol 0.2 mcg 3 times a week. I did not make any medication changes today. She should lose weight. Follow-up blood work ordered. Her 24 hour urine for cr cl was 17 mls/mt. All questions answered Medications: Changed From isosorbide mononitrate ER 60 mg PO DAILY 90 tabs 3RF To isosorbide mononitrate ER 120 mg (2 x 60 mg) PO DAILY 90 days 180 tabs 3RF Coding Level of Care Code Est Pt Level 4 (71310) Diagnoses CKD stage 4 due to type 2 diabetes mellitus E11.22; N18.4 Secondary hyperparathyroidism (of renal origin) N25.81 Anemia in stage 3b chronic kidney disease N18.32; D63.1 Chronic kidney disease stage: stage 3 (moderate) Chronic kidney disease stage 3 subtype: stage 3b (GFR 30-44) Diabetic nephropathy associated with type 2 diabetes mellitus E11.21 Diabetes mellitus type: type 2 Essential (primary) hypertension I10
--- OUTSIDE RECORDS SUMMARY | 2025-02-10 17:33 | XMS_ITS | Clinical Summary ---
Author Organization [facility] Address [address] [facility] [address] [place] [address] Phone Care Team Providers Care Health Care Coordinator Name Role Phone Barbara Winchester MD Primary [...] tablet 3 10/07/2022 Active ergocalciferol 1.25 MG (64876 UT) capsule Take 50,000 Units by mouth [...] 03/28/2022 Type 2 diabetes mellitus 09/25/2021 Immunizations Immunization Administration Dates Next Due Pfizer SARS-COV-2 09/23/2021,,02/11/2021,01/21/2021 [...] Colorectal Cancer Screening: Sigmoidoscopy 1999 Pneumococcal Vaccine: 50+ Ye ars (2 of 2 - PPSV23 or PCV20) 10/09/2019 08/14/2019 Diabetes: Hemoglobin A1C 12/03/2020 05/15/2020 Diabetes: Ophthalmology Exam 12/03/2020 Diabetes: Pedal Pulse Checked 12/03/2020 Diabetes: Sensory Foot Exam 12/03/2020 Diabetes: Visual Foot Exam 12/03/2020 Influenza Vaccine (Season Ended) 2025 Hepatitis B Vaccine Aged Out No longe [...] average glucose, using the formula of the A2V-Tbwoxul Average Glucose study (ADAG), Diabetes Care, Vol.31,#8, Jun. 2007 05/15/2020 8:26 AM EDT us Alma Delia Ford MD LAB BLOOD ORDERABLES Final Resu lt ELIDA from Last 3 Months or Most Recently Relevant to Health Maintenance Insurance [facility] Medicare [facility] Medicare Care Teams Health Care Coordinator Relationship Specialty Start Date End Date Barbara Winchester MD PCP - General Dental Structural Engineering Drafting Officer 04/01/23
== END 2025-02-10 15:31 | disposition home or self-care (01) ==
LOC: HO.HKAS 15:06
PROVIDERS: PCP Internal Medicine; Visit Provider Internal Medicine Nephrology
DX: E11.22 Type 2 diabetes mellitus with diabetic chronic kidney disease (principal); N18.4 Chronic kidney disease, stage 4 (severe); N25.81 Secondary hyperparathyroidism of renal origin; N18.32 Chronic kidney disease, stage 3b; D63.1 Anemia in chronic kidney disease; E11.21 Type 2 diabetes mellitus with diabetic nephropathy; I12.9 Hypertensive chronic kidney disease with stage 1 through stage 4 chronic kidney disease, or unspecified chronic kidney disease
CPT/HCPCS: 99214

== ENCOUNTER → 2025-02-10 15:05 | Outpatient (BNVA) | payer MEDICARE, OTHER, SELFPAY | PROVIDERS: PCP Internal Medicine; Visit Provider Internal Medicine Nephrology | DX: E11.22 Type 2 diabetes mellitus with diabetic chronic kidney disease (principal); I12.9 Hypertensive chronic kidney disease with stage 1 through stage 4 chronic kidney disease, or unspecified chronic kidney disease; N18.4 Chronic kidney disease, stage 4 (severe); N25.81 Secondary hyperparathyroidism of renal origin; R80.9 Proteinuria, unspecified; D63.1 Anemia in chronic kidney disease; E11.21 Type 2 diabetes mellitus with diabetic nephropathy | CPT/HCPCS: 99212 ==

== ENCOUNTER 2025-03-01 08:55 | Outpatient (REF) | payer MEDICARE, OTHER, SELFPAY ==
--- OUTSIDE RECORDS SUMMARY | 2025-03-01 09:32 | XMS_ITS | Clinical Summary ---
Author Organization [facility] Address [address] [facility] [address] [place] [address] Phone Care Team Providers Care Hand Assembler For Puller Over Name Role Phone Barbara Winchester MD Primary [...] tablet 3 10/07/2022 Active ergocalciferol 1.25 MG (23012 UT) capsule Take 50,000 Units by mouth [...] 50+ Ye ars (2 of 2 - PPSV23) 10/09/2019 08/14/2019 Diabetes: Hemoglobin A1C 12/03/2020 05/15/2020 Diabetes: Ophthalmology Exam 12/03/2020 Diabetes: Pedal Pulse Checked 12/03/2020 Diabetes: Sensory Foot Exam 12/03/2020 Diabetes: Visual Foot Exam 12/03/2020 Influenza Vaccine (Season Ended) 2025 Pneumococcal Vaccine: Peds ( 0 to 5 Years) and At-Risk Patients (6 to 49 Years) Discontinued 08/14/2019 Hepatitis B Vaccine Aged Out No longe [...] ? sample. Estimated Average Glucose 140 MG/DL SOLOMONCARMEN Comment: eAG = Estimated average glucose which is %A1C expressed as average glucose, using the formula of the I0W-Tngvsft Average Glucose study (ADAG), Diabetes Care, Vol.31,#8, Jun. 2008 05/15/2020 8:26 AM EDT us Alma Delia Ford MD LAB BLOOD ORDERABLES Final Resu lt SOLOMONCARMEN from Last 3 Months or Most Recently Relevant to Health Maintenance Insurance [facility] Medicare [facility] Medicare Care Teams Hand Assembler For Puller Over Relationship Specialty Start Date End Date Barbara Winchester MD PCP - General Dental Applied Anthropologist 04/01/23
[2025-03-01 17:43] LABS: MANUAL DIFF FLAG NO
[2025-03-01 18:02] LABS: Anion Gap 15 (12-20); Blood Urea Nitrogen 60 mg/dL (9-16); Calcium 8.6 mg/dL (8.4-10.2); Carbon Dioxide 19 mmol/L (22-29); Chloride 111 mmol/L (96-108); Estimated Glomerular Filt Rate 13; Potassium 4.1 mmol/L (3.3-5.1); Sodium 141 mmol/L (135-145)
[2025-03-01 18:07] LABS: Basophils Percent Auto 0.5 % (0-2); Eosinophils Absolute Auto 0.1 X10*3/uL (0.0-0.4); Eosinophils Percent Auto 1.3 % (0-4); Hematocrit 28.2 % (37.0-47.0); Hemoglobin 8.8 g/dl (12.0-16.0); Imm Gran Abs Auto 0.03 X10*3/uL (0.00-0.03); Imm Gran Pct Auto 0.4 % (0.0-0.4); Lymphocytes Absolute Auto 1.4 X10*3/uL (1.2-4.9); Lymphocytes Percent Auto 16.6 % (20-40); Mean Corpuscular HGB Conc 31.2 g/dl (31.0-35.0); Mean Corpuscular Hemoglobin 28.4 pg (27.0-33.0); Mean Platelet Volume 12.8 fL (9.4-12.3); Monocytes Absolute Auto 0.8 X10*3/uL (0.1-1.2); Monocytes Percent Auto 9.6 % (2-11); Neutrophils Percent Auto 71.6 % (45-73); Platelet Count 184 X10*3/uL (160-400); Red Cell Distribution Width 15.9 % (11.0-16.0); White Blood Count 8.4 X10*3/uL (4.8-10.8)
[2025-03-01 19:43] LABS: Parathyroid Hormone Intact 348.3 pg/mL (8.7-77.1)
== END 2025-03-01 08:56 | disposition home or self-care (01) ==
LOC: HO.HKASLDS 08:55
PROVIDERS: Visit Provider Internal Medicine Nephrology
DX: I12.9 Hypertensive chronic kidney disease with stage 1 through stage 4 chronic kidney disease, or unspecified chronic kidney disease (principal); E11.22 Type 2 diabetes mellitus with diabetic chronic kidney disease; E11.21 Type 2 diabetes mellitus with diabetic nephropathy; N18.4 Chronic kidney disease, stage 4 (severe); N25.81 Secondary hyperparathyroidism of renal origin; N18.32 Chronic kidney disease, stage 3b; D63.1 Anemia in chronic kidney disease
CPT/HCPCS: 36415; 80051; 82310; 82565; 83970; 84520; 85025

== ENCOUNTER 2025-03-22 09:02 | Outpatient (REF) | payer MEDICARE, OTHER, SELFPAY ==
--- OUTSIDE RECORDS SUMMARY | 2025-03-22 09:40 | XMS_ITS | Clinical Summary ---
Author Organization [facility] Address [address] [facility] [address] [place] [address] Phone Care Team Providers Care Proof Technician Helper Name Role Phone Barbara Winchester MD [...] tablet 3 10/07/2022 Active ergocalciferol 1.25 MG (83926 UT) capsule Take 50,000 Units by mouth [...] 50+ Ye ars (2 of 2 - PPSV23, PCV20, or PCV21) 10/09/2019 08/14/2019 Diabetes: Hemoglobin A1C 12/03/2020 05/15/2020 [...] ? sample. Estimated Average Glucose 140 MG/DL KERRYLEONARD Comment: eAG = Estimated average glucose which is %A1C expressed as average glucose, using the formula of the [id number] Average Glucose study (ADAG), Diabetes Care, Vol.31,#8, Jun. 2008 05/15/2020 8:26 AM EDT us Alma Delia Ford MD LAB BLOOD ORDERABLES Final Resu lt [place] from Last 3 Months or Most Recently Relevant to Health Maintenance Insurance [facility] Medicare [facility] Medicare Care Teams Proof Technician Helper Relationship Specialty Start Date End Date Barbara Winchester MD PCP - General Dental People Greeter 04/01/23
[2025-03-22 18:36] LABS: Anion Gap 15 (12-20); Blood Urea Nitrogen 63 mg/dL (9-16); Carbon Dioxide 21 mmol/L (22-29); Chloride 109 mmol/L (96-108); Estimated Glomerular Filt Rate 13; Sodium 141 mmol/L (135-145)
== END 2025-03-22 09:03 | disposition home or self-care (01) ==
LOC: HO.HKASLDS 09:02
PROVIDERS: Visit Provider Internal Medicine Nephrology
DX: E11.22 Type 2 diabetes mellitus with diabetic chronic kidney disease (principal); N18.4 Chronic kidney disease, stage 4 (severe)
CPT/HCPCS: 36415; 80051; 82565; 84520

== ENCOUNTER 2025-03-29 11:23 | Outpatient (AMB) | payer MEDICARE, OTHER, SELFPAY ==
--- NOTE | 2025-03-29 11:28 | HO.NEPHOV_ITS ---
Vital Signs 03/29/25 11:29 Height 5 ft 3 in Weight 178 lb BMI 31.5 BP 140/70 H Blood Pressure Location Rt brachial Position Sitting Pulse 60 Pulse Source Pulse Oximeter Pulse Oximetry (%) 96 Oxygen Delivery Method Room Air Intake Visit Reasons: 2 mnts f/u-Conf Rehab Office Coordinator Required: No Accompanied by: Self / Same As Patient Allergies liraglutide [Victoza] Allergy (Unknown, Verified 03/29/25 11:29) Unknown lisinopril [LISINOPRIL] Allergy (Unknown, Verified 03/29/25 11:29) cough adhisive Allergy (Unknown, Uncoded 10/20/23 14:28) Unknown HPI Comments Details: Annabelle was seen in the office in follow-up for chronic kidney disease, proteinuria and hypertension. Her BP is better with weight loss with diuretics . She has history of coronary disease, CABG and AVR. She has diabetic retinopathy. She denies any chest pain, shortness of breath, proximal nocturnal dyspnea, orthopnea, nausea, vomiting, diarrhea or urinary symptoms. She was on Trulicity in the past but stopped due to side effects. Her recent serum creatinine has been around 3. Her losartan has been put on hold . She continues to have proteinuria over 3 g. Her SOBE is better now. She denies PND or worsening edema. She has not had a sleep study. [facility] Medical History (Updated 03/29/25 @ 11:49 by Romeo Ni MD) Secondary hyperparathyroidism (of renal origin) Diabetic retinopathy Essential (primary) hypertension Aortic valve stenosis Chronic diastolic CHF (congestive heart failure) Type 2 diabetes mellitus CKD (chronic kidney disease) stage 3, GFR 30-59 ml/min HLD (hyperlipidemia) Surgical History Aortic valve replaced S/P quadruple vessel bypass Family History Father Diabetes Social History Alcohol intake: never Patient Tobacco Use Status: Never used Tobacco Review of Systems Const All systems reviewed & are unremarkable except as noted in HPI and below Physical Exam Vital Signs: Last Vital Signs Pulse 60 03/29/25 11:29 BP 140/70 H 03/29/25 11:29 Pulse Ox 96 03/29/25 11:29 Oxygen Delivery Method Room Air 03/29/25 11:29 BMI result Body Mass Index 31.5 Const General: comfortable and no acute distress Orientation/consciousness: patient oriented x3 HEENT Head: Yes normocephalic Mouth: Normal oral and palatal mucosa present Eyes EOM: EOMs intact bilaterally Neck Neck: Yes supple Resp Auscultation: clear to auscultation bilaterally Cardio Jugular venous distension: no JVD Rate: regular rate GI Palpation (GI): Soft to palpation Auscultation: normal bowel sounds General: Yes no CVA tenderness Back/Spine/Pelvis Back: no CVA tenderness Skin General skin exam: no rashes or lesions noted Neuro General: patient oriented x3 and moves all extremities Office Meds epoetin kristopher-epbx 10,000 unit/mL injection solution Performing Provider: Romeo Ni MD Performing Location: [facility] Administered by: Romeo Ni MD on 03/29/25 11:56 Dose Route Admin Location Dispensed Lot Number Expiration Date [facility] [employer] 40,000 unit subcut RUE 4 mL [id number] 05/03/26 6528-0885-80 [employer] Results Reviewed Nephrology Results: Hgb 8.8 g/dl (12.0-16.0) L 03/01/25 WBC 8.4 X10*3/uL (4.8-10.8) 03/01/25 Plt Count 184 X10*3/uL (160-400) 03/01/25 Sodium 141 mmol/L (135-145) 03/22/25 Potassium 4.0 mmol/L (3.3-5.1) 03/22/25 Chloride 109 mmol/L (96-108) H 03/22/25 Carbon Dioxide 21 mmol/L (22-29) L 03/22/25 BUN 63 mg/dL (9-16) H 03/22/25 Creatinine 3.54 mg/dL (0.5-1.4) H 03/22/25 Calcium 8.6 mg/dL (8.4-10.2) 03/01/25 Phosphorus 4.0 mg/dL (2.7-4.5) 10/25/24 PTH Intact 348.3 pg/mL (8.7-77.1) H 04/29/25 Assessment & Plan Assessment & Plan (1) CKD stage 4 due to type 2 diabetes mellitus: Code(s): E11.22 - Type 2 diabetes mellitus with diabetic chronic kidney disease; N18.4 - Chronic kidney disease, stage 4 (severe) Category: Medical (2) Secondary hyperparathyroidism (of renal origin): Code(s): N25.81 - Secondary hyperparathyroidism of renal origin Category: Medical (3) Anemia in chronic kidney disease: Code(s): N18.9 - Chronic kidney disease, unspecified; D63.1 - Anemia in chronic kidney disease Category: Medical Qualifiers: Chronic kidney disease stage: stage 3 (moderate) Chronic kidney disease stage 3 subtype: stage 3b (GFR 30-44) Qualified Code(s): N18.32 - Chronic kidney disease, stage 3b; D63.1 - Anemia in chronic kidney disease (4) Diabetic nephropathy: Code(s): E11.21 - Type 2 diabetes mellitus with diabetic nephropathy Category: Medical Qualifiers: Diabetes mellitus type: type 2 Qualified Code(s): E11.21 - Type 2 diabetes mellitus with diabetic nephropathy Plan 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 She has history of MGUS as well. She is hypertensive and has history of high MITCHELL. She needs a sleep study. She F/U with Dr Shaquille Davila for F/U. She could continue current dose of Lasix. She had declined renal biopsy in the past. Her losartan is currently on hold . I gave her [id number] U Procrit today. She should maintain good hydration. I discussed about declining renal functions and potential need for renal replacement in the future. She had dialysis education. I referred her for AVF. She can continue calcitriol 0.2 mcg 3 times a week. I did not make any medication changes today. She should lose weight. Follow-up blood work ordered. All questions answered Orders: Orders Electrolytes 6 Weeks D63.1 - Anemia in chronic kidney disease, E11.21 - Type 2 diabetes mellitus with diabetic nephropathy, E11.22 - Type 2 diabetes mellitus with diabetic chronic kidney disease, N18.32 - Chronic kidney disease, stage 3b, N18.4 - Chronic kidney disease, stage 4 (severe), N25.81 - Secondary hyperparathyroidism of renal origin Calcium 6 Weeks D63.1 - Anemia in chronic kidney disease, E11.21 - Type 2 diabetes mellitus with diabetic nephropathy, E11.22 - Type 2 diabetes mellitus with diabetic chronic kidney disease, N18.32 - Chronic kidney disease, stage 3b, N18.4 - Chronic kidney disease, stage 4 (severe), N25.81 - Secondary hyperparathyroidism of renal origin Creatinine 6 Weeks D63.1 - Anemia in chronic kidney disease, E11.21 - Type 2 diabetes mellitus with diabetic nephropathy, E11.22 - Type 2 diabetes mellitus with diabetic chronic kidney disease, N18.32 - Chronic kidney disease, stage 3b, N18.4 - Chronic kidney disease, stage 4 (severe), N25.81 - Secondary hyperparathyroidism of renal origin Ferritin 6 Weeks D63.1 - Anemia in chronic kidney disease, N18.32 - Chronic kidney disease, stage 3b AMB Epoetin Injection Practice Supplied Today D63.1 - Anemia in chronic kidney disease, N18.32 - Chronic kidney disease, stage 3b Complete Blood Count Auto Diff 6 Weeks D63.1 - Anemia in chronic kidney disease, E11.21 - Type 2 diabetes mellitus with diabetic nephropathy, E11.22 - Type 2 diabetes mellitus with diabetic chronic kidney disease, N18.32 - Chronic kidney disease, stage 3b, N18.4 - Chronic kidney disease, stage 4 (severe), N25.81 - Secondary hyperparathyroidism of renal origin Blood Urea Nitrogen 6 Weeks D63.1 - Anemia in chronic kidney disease, E11.21 - Type 2 diabetes mellitus with diabetic nephropathy, E11.22 - Type 2 diabetes mellitus with diabetic chronic kidney disease, N18.32 - Chronic kidney disease, stage 3b, N18.4 - Chronic kidney disease, stage 4 (severe), N25.81 - Secondary hyperparathyroidism of renal origin IRON PROFILE 6 Weeks D63.1 - Anemia in chronic kidney disease, N18.32 - Chronic kidney disease, stage 3b Referrals Vascular Surgery Referral E11.22 - Type 2 diabetes mellitus with diabetic ch ronic kidney disease, N18.4 - Chronic kidney disease, stage 4 (severe) Medications: Changed From sodium bicarbonate 650 mg PO BID 60 tabs 1RF To sodium bicarbonate 650 mg PO BID 90 days 180 tabs 4RF Coding Level of Care Code Est Pt Level 4 (01229) Diagnoses CKD stage 4 due to type 2 diabetes mellitus E11.22; N18.4 Secondary hyperparathyroidism (of renal origin) N25.81 Anemia in stage 3b chronic kidney disease N18.32; D63.1 Chronic kidney disease stage: stage 3 (moderate) Chronic kidney disease stage 3 subtype: stage 3b (GFR 30-44) Diabetic nephropathy associated with type 2 diabetes mellitus E11.21 Diabetes mellitus type: type 2
[2025-03-29 11:29] VITALS: BP 140/70; PULSE 60; O2SAT 96; BMI 31.5
--- OUTSIDE RECORDS SUMMARY | 2025-03-29 12:09 | XMS_ITS | Clinical Summary ---
Author Organization [facility] Address [address] [facility] [address] [place] [address] Phone Care Team Providers Care Endocrinology Specialist Name Role Phone Barbara Winchester MD Primary [...] tablet 3 10/07/2022 Active ergocalciferol 1.25 MG (35376 UT) capsule Take 50,000 Units by mouth [...] average glucose, using the formula of the [id number] Average Glucose study (ADAG), Diabetes Care, Vol.31,#8, Jun. 2008 05/15/2020 8:26 AM EDT us Alma Delia Ford MD LAB BLOOD ORDERABLES Final Resu lt [facility] from Last 3 Months or Most Recently Relevant to Health Maintenance Insurance [facility] Medicare [facility] Medicare Care Teams Endocrinology Specialist Relationship Specialty Start Date End Date Barbara Winchester MD PCP - General Dental Petroleum Sampler 04/01/23
== END 2025-03-29 12:03 | disposition home or self-care (01) ==
PROVIDERS: PCP Internal Medicine; Visit Provider Internal Medicine Nephrology
DX: E11.22 Type 2 diabetes mellitus with diabetic chronic kidney disease (principal); N18.4 Chronic kidney disease, stage 4 (severe); N25.81 Secondary hyperparathyroidism of renal origin; N18.32 Chronic kidney disease, stage 3b; D63.1 Anemia in chronic kidney disease; E11.21 Type 2 diabetes mellitus with diabetic nephropathy
CPT/HCPCS: 99214

== ENCOUNTER → 2025-03-29 11:23 | Outpatient (BNVA) | payer MEDICARE, OTHER, SELFPAY | PROVIDERS: PCP Internal Medicine; Visit Provider Internal Medicine Nephrology | DX: I12.9 Hypertensive chronic kidney disease with stage 1 through stage 4 chronic kidney disease, or unspecified chronic kidney disease (principal); E11.22 Type 2 diabetes mellitus with diabetic chronic kidney disease; E11.21 Type 2 diabetes mellitus with diabetic nephropathy; I25.10 Atherosclerotic heart disease of native coronary artery without angina pectoris; N25.81 Secondary hyperparathyroidism of renal origin; D63.1 Anemia in chronic kidney disease; N18.4 Chronic kidney disease, stage 4 (severe); Z95.2 Presence of prosthetic heart valve | CPT/HCPCS: 96372; 99212; Q5106 ==

== ENCOUNTER 2025-05-04 09:05 | Outpatient (REF) | payer MEDICARE, OTHER, SELFPAY ==
--- OUTSIDE RECORDS SUMMARY | 2025-05-04 09:17 | XMS_ITS | Clinical Summary ---
Author Organization [facility] Address [address] [facility] [address] [place] [address] Phone Care Team Providers Care Rail Transportation Operator Name Role Phone Barbara Winchester MD Primary [...] tablet 3 10/07/2022 Active ergocalciferol 1.25 MG (81523 UT) capsule Take 50,000 Units by mouth [...] EDT) Hemoglobin A1C 6.5 % ELIDA Comment: Hemoglobin A1C Reference Range Adults: 4.8 - 6.0 % Non diabetic: < 6.0 % Goal: < 7.0 % Additional Action Suggested: > 8.0 % Note: Hemoglobin A1c results are invalid for patients with abnormal amounts of HbF. Blood transfusions may impact the HbA1c concentration in the patient sample. Estimated Average Glucose 140 MG/DL ELIDA Comment: eAG = Estimated average glucose which is %A1C expressed as average glucose, using the formula of the [id number]-Smvrjna Average Glucose study (ADAG), Diabetes Care, Vol.31,#8, Jun. 2007 05/15/2020 8:26 AM EDT us Alma Delia Ford MD LAB BLOOD ORDERABLES Final Resu lt [place] from Last 3 Months or Most Recently Relevant to Health Maintenance Insurance [facility] Medicare [facility] Medicare Care Teams Rail Transportation Operator Relationship Specialty Start Date End Date Barbara Winchester MD PCP - General Dental Lead Electrician 04/01/23
--- OUTSIDE RECORDS SUMMARY | 2025-05-04 09:17 | XMS_ITS | Clinical Summary ---
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 Active furosemide (LASIX) 80 mg tablet Take by mouth. Active isosorbide dinitrate (ISORDIL) 20 mg tablet Take 1 tablet (20 mg total) by mouth 3 (three) times a day. Active ezetimibe (ZETIA) 10 mg tablet Take 1 tablet (10 mg total) by mouth 1 (one) time each day. Active carvediloL (COREG) 6.25 mg tablet Take by mouth 2 (two) times a day with meals. Active atorvastatin (LIPITOR) 80 mg tablet Take 1 tablet (80 mg total) by mouth at bedtime. Active calcitrioL (ROCALTROL) 0.25 mcg capsule Take by mouth 1 (one) time each day. Active escitalopram (LEXAPRO) 5 mg tablet Take 1 tablet (5 mg total) by mouth 1 (one) time each day. Pt takes as needed Active cholecalciferol (VITAMIN D-3) 1,250 mcg (50,000 unit) capsule Take 1 capsule (50,000 Units total) by mouth 1 (one) time per week. Active sodium bicarbonate 650 mg tablet Take 1 tablet (650 mg total) by mouth 4 (four) times a day. Active ferrous sulfate, dried (iron) 159 mg (45 mg iron) tablet extended release Take by mouth. Active LORazepam (ATIVAN) 0.5 mg tablet Take 1 tablet (0.5 mg total) by mouth every 6 (six) hours if needed for anxiety. Max Daily Amount: 2 mg Active aspirin 81 mg EC tablet Take 1 tablet (81 mg total) by mouth 1 (one) time each day. Active oxyCODONE (ROXICODONE) 5 mg immediate release tablet Take 1 tablet (5 mg total) by mouth every 6 (six) hours if needed for severe pain. Max Daily Amount: 20 mg 7 tablet Active isosorbide dinitrate (ISORDIL) 5 mg tablet Take 1 tablet (5 mg total) by mouth 3 (three) times a day. 025 Discontinued insulin poultry packer cart,BT,G6/L2-c ntr (Omnipod 5 Intro,G6/Libre2 Plus,) cartridge Inject under the skin. 025 Discontinued magnesium citrate solution Take by mouth 1 (one) time. 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 ([facility] V24, [facility] V28) 04/28/2025 CAD (coronary artery disease) 04/28/2025 Hx of CABG 04/28/2025 CKD (chronic kidney disease) stage 5, GFR less than 15 ml/min ([facility] V24, [facility] V28) 04/05/2025 Resolved Problems Problem Noted Date Diagnosed Date Resolved Date Diabetes mellitus type 1 ( S/[facility] V24, [facility] V28) 04/28/2025 04/28/2025 Encounters Date Type Department Care Team Description 04/28/2025 2:54 PM EDT Anesthesia Event [facility] Main OR [address] [place] [phone] Leandro Flores DO Kriz, Petra, MD 04/28/2025 12:00 PM EDT - 04/28/2025 1:45 PM EDT Surgery [facility] Main OR [address] [place] [phone] Connor Pace MD CREATION AV FISTULA LEFT UPPER EXTREMITY [25716 (CPT )] 04/28/2025 10:25 AM EDT - 04/28/2025 5:29 PM EDT Hospital Encounter [facility] Main OR [address] [place] [phone] Connor Pace MD Discharge Disposition: Home or Self Care 04/05/2025 9:15 AM EDT Consult General Surgery - [place] [address] [facility] [address] [place] [address] Connor Pace MD Chronic kidney disease, stage 4 (severe) (CMS/[facility] V24, [facility] V28) from Last 3 Months Surgical History Surgery Date Site/Laterality Comments CARDIAC VALVE REPLACEMENT CORONARY ARTERY BYPASS GRAFT Medical History Medical History Date Comments Type II or unspecified type diabetes mellitus without mention of complication, not stated as uncontrolled 02/14/05 DX:Type II or unspecified t ype diabetes mellitus without mention of complication, not stated as uncontrolled Essential hypertension, benign 08/01/05 D X:Essential hypertension, benign Iron deficiency anemia, unspecified 09/03/02 DX:Iron deficiency anemia, unspecified Other and unspecified angina pectoris 08/11/02 DX:Other and unspecified angina pectoris Mitral stenosis 08/06/02 DX:Mitral stenos is Coronary atherosclerosis of unspecified type of vessel, [place] or graft 07/27/02 DX:Coronary atheroscle rosis of unspecified type of vessel, [place] or graft; COMMENT: Echo 09/11/02-- EF at 55% Secondary hyperparathyroidis m (CMS/[facility] V24) Fluid retention Family History Medical History Relation Name Comments Diabetes Father Relation Name Status Comments Father Social History Tobacco Use Types Packs/Day Years Used Date Smoking Tobacco: Never Tobacco Cessation:Counseling Given: Not Answered Alcohol Use Standard Drinks/Week Comments No 0 (1 standard drink = 0.6 oz pur e alcohol) Comments Unknown Sex and Gender Information Value Date Recorded Sex Assigned at Not on file Legal Sex Female 11:56 PM EST Gender Identity Not on file Sexual Orientation Not on file Obstetrics History Last Filed Vital Signs Vital Sign Reading Time Taken Comments Blood Pressure 152/54 04/28/2025 4:28 PM EDT Pulse 52 04/28/2025 4:28 PM EDT Temperature 35.7 C (96.2 F) 04/28/2025 4:28 PM EDT Respiratory Rate 16 04/28/2025 4:28 PM EDT Oxygen Saturation 95% 04/28/2025 4:28 PM EDT Inhaled Oxygen Concentration - - Weight 77.6 kg (171 lb) 04/14/2025 1:00 PM EDT Height 157.5 cm (5' 2 ) 04/14/2025 1:00 PM EDT Body Mass Index 31.28 04/14/2025 1:00 PM EDT Plan of Treatment Upcoming Encounters Date Type Department Care Team (Late st Contact Info) Description 05/18/2025 9:30 AM EDT Office Visit General Surgery - [place] [address] [facility] [address] [place] [address] Connor Pace MD [address] [facility] [address] [place] [address] Health Maintenance Due Date Last Done Comments Diabetes: Annual Foot Exam 1960 Diabetes: Annual Retina Eye Exam 1960 Hepatitis A Vaccines (1 of 2 - Risk 2-dose series) 1969 Zoster Vaccines (1 of 2) 1969 Hepatitis B Vaccines (1 of 3 - Risk 3-dose series) 2010 COVID-19 Vaccine ( season) 2024 09/18/2022, 09/23/2021, 02/11/2021, Additional history exists Cholesterol Screening (Lipid Panel) 03/31/2025 Depression Screening 03/31/2025 Diabetes: Blood Sugar Control Test (HGBA1C) 03/31/2025 05/15/2020 Hepatitis C Screening 03/31/2025 Medicare Annual Wellness Visit 03/31/2025 Osteoporosis Screening (Bone Density Screening) 03/31/2025 Social Influencers of Health Screening 03/31/2025 RSV Immunization Adult Patients (1 - 1-dose 75+ series) 2025 Influenza Vaccine (Season Ended) 2025 07/21/2023, 09/07/2021, 08/19/2019, Additional history exists Falls Risk Assessment 04/28/2026 04/28/2025 Hypertension/CHF/CAD Annual BMP Blood Test 04/28/2026 04/28/2025 Colorectal Cancer Screening: FIT-DNA (Cologuard) 04/20/2028 04/20/2025, 08/19/2019 DTaP,Tdap,and Td Vaccines (2 - Td or Tdap) 09/02/2028 09/02/2018 Breast Cancer Screening Discontinued 12/23/2018 Pneumococcal Vaccine: 50+ Years Completed 10/21/2023, 08/14/2019 HIB Vaccines Aged Out No longer eligi ble based on patient's age to complete this topic HPV Vaccines Aged Out No longer eligi ble based on patient's age to complete this topic IPV Vaccines Aged Out No longer eligi ble based on patient's age to complete this topic MMR Vaccines Aged Out No longer eligi ble based on patient's age to complete this topic Meningococcal ACWY Vaccine Aged Out N o longer eligible based on patient's age to complete this topic Meningococcal B Vaccine Aged Out No l onger eligible based on patient's age to complete this topic RSV Immunization Patients Under 20 months Aged Out No longer eligible based on patient's age to complete this topic Varicella Vaccines Aged Out No longer eligible based on patient's age to complete this topic Procedures Procedure Name Priority Date/Time Associated Diagnosis Comments [place] ANASTOMOSIS ARTERIOVENOUS DIRECT ANY SITE OPEN (SEPARATE PROCEDURE) 04/28/2025 2:54 PM EDT CKD (chronic kidney disease) stage 5, GFR less than 15 ml/min ([facility] V24, [facility] V28) Special Needs Creation AV fistula left upper extremity - 90 minutes (NO BLOCK) TH AN NERVE BLOCK SUPRACLAVICULAR (NO CHARGE) Routine 04/28/2025 2:20 PM EDT TH AN NERVE BLOCK SUPRACLAVICULAR (CHARGE) Routine 04/28/2025 2:20 PM EDT PROCEDURAL ECG Routine 04/28/2025 12:07 PM EDT CBC WITH AUTO DIFFERENTIAL Routine 04/28/2025 10:31 AM EDT CBC AND DIFFERENTIAL Routine 04/28/2025 10:31 AM EDT BASIC METABOLIC PANEL Routine 04/28/2025 10:31 AM EDT ECHO OUTSIDE IMAGES/REPORT Routine 04/21/2025 9:30 AM EDT GRZEGORZ SCREENING DIGITAL Routine 12/23/2018 9:09 AM EST Encounter for screening mammogram for malignant neoplasm of breast from Last 3 Months or Most Recently Relevant to Health Maintenance Results * TH AN NERVE BLOCK SUPRACLAVICULAR (CHARGE), TH AN NERVE BLOCK SUPRACLAVICULAR (NO CHARGE) (04/28/2025 2:20 PM EDT) Patricia Walter MD - 04/28/2025 2:20 PM EDT Patricia Becerril MD 04/28/2025 2:36 PM Peripheral Block Patient location during procedure: pre-op Start time: 04/28/2025 2:20 PM End time: 04/28/2025 2:25 PM Reason for block: post-op pain management Staffing Performed: anesthesiologist Anesthesiologist: Patricia Becerril MD Preanesthetic Checklist Completed: patient identified, IV checked, site marked, risks and benefits discussed, surgical consent, monitors and equipment checked, pre-op evaluation and timeout performed Peripheral Block Patient position: supine Prep: ChloraPrep Patient monitoring: continuous pulse ox and heart rate (NIBP) Block type: supraclavicular Laterality: left Injection technique: single-shot Guidance: ultrasound guided and Ultrasound image saved to chart Local infiltration: lidocaine Needle Needle type: nerve stimulator Needle gauge: 21 G Needle length: 5 cm Needle localization: ultrasound guidance and nerve stimulator (Ultrasound with tip visualized throughout) Medications Administered fentaNYL (SUBLIMAZE) injection 50 mcg/mL - intravenous 100 mcg - 04/28/2025 2:20:00 PM midazolam (VERSED) injection 1 mg/mL - intravenous 2 mg - 04/28/2025 2:20:00 PM Assessment Injection assessment: negative aspiration for heme, no paresthesia on injection, incremental injection with negative aspiration q 5ml and local visualized surrounding nerve on ultrasound Paresthesia pain: none Heart rate change: no Slow fractionated injection: yes Additional Notes Timeout performed with bedside RN. Anesthesia and surgical consent on chart. Standard aseptic technique: hat, mask, sterile gloves, eye protection. Monitors: NIBP, SpO2, EKG Sedation with meaningful contact. ChloraPrep to peripheral nerve block site. Ultrasound guidance throughout. Injectate: Ropivacaine 0.5% Volume: 20 mL Clonidine 100 mcg mixed with local anesthetic. Felicia-neural/fascial plane visualization of local anesthetic spread. Ultrasound image saved to chart. Block performed per surgeon request (ordered on chart). us Patricia Becerril MD ANESTHESIA ORDERABLES Final Resu lt * ECG 12 lead - Procedural (No Charge) (04/28/2025 12:07 PM EDT) Ventricular Rate ECG 59 BPM GEMUSE Atrial Rate 59 BPM GEMUSE P-R Interval 322 ms GEMUSE QRS Duration 154 ms GEMUSE Q-T Interval 492 ms GEMUSE QTc 487 ms GEMUSE P Wave [place] 45 degrees GEMUSE R [place] -60 degrees GEMUSE T [place] 113 degrees GEMUSE ECG Interpretation Sinus bradycardia with 1st degree A-V block with Premature atrial complexes Right bundle branch block Left anterior fascicular block Bifascicular block Voltage criteria for left ventricular hypertrophy Cannot rule out Septal infarct , age undetermined T wave abnormality, consider lateral ischemia Abnormal ECG No previous ECGs available Confirmed by [employer] ([id number]) on 04/28/2025 12:29:52 PM GEMUSE 04/28/2025 12:0 7 PM EDT 04/28/2025 12:29 PM EDT us Patricia Becerril MD ECG ORDERABLES Final Result GEMUSE * (ABNORMAL) CBC auto differential (04/28/2025 10:31 AM EDT) WBC 7.4 4.8 - 10.8 K/[facility] LAB HEMETOLOGY METHOD 04/28/2025 11:05 AM EDT [facility] RBC 3.30(L) 3.80 - 4.80 M/mcL LAB HEMETOLOGY METHOD 04/28/2025 11:05 AM [facility] Hemoglobin 9.2(L) 11.5 - 16.0 g/dL LAB HEMETOLOGY METHOD 04/28/2025 11:05 AM [facility] Hematocrit 29.8(L) 35.0 - 47.0 % LAB HEMETOLOGY METHOD 04/28/2025 11:05 AM [facility] MCV 91.7 79.0 - 98.0 FL LAB HEMETOLOGY METHOD 04/28/2025 11:05 AM [facility] MCH 28.3 27.0 - 32.0 pcg LAB HEMETOLOGY METHOD 04/28/2025 11:05 AM [facility] MCHC 30.9(L) 32.0 - 37.0 g/dL LAB HEMETOLOGY METHOD 04/28/2025 11:05 AM [facility] RDW 15.0 11.0 - 15.0 % LAB HEMETOLOGY METHOD 04/28/2025 11:05 AM [facility] Platelets 221 130 - 400 K/mcL LAB HEMETOLOGY METHOD 04/28/2025 11:05 AM [facility] MPV 12.3(H) 7.0 - 11.0 FL LAB HEMETOLOGY METHOD 04/28/2025 11:05 AM [facility] NRBC 0.0 <1.0 % LAB HEMETOLOGY METHOD 04/28/2025 11:05 AM [facility] NRBC Absolute 0.00 <0.10 K/mcL LAB HEMETOLOGY METHOD 04/28/2025 11:05 AM [facility] Neutrophils Relative 69.2 % LAB HEMETOLOGY METHOD 04/28/2025 11:05 AM [facility] Lymphocytes Relative 19.6 % LAB HEMETOLOGY METHOD 04/28/2025 11:05 AM [facility] Monocytes Relative 9.1 % LAB HEMETOLOGY METHOD 04/28/2025 11:05 AM [facility] Eosinophils Relative 1.5 % LAB HEMETOLOGY METHOD 04/28/2025 11:05 AM [facility] Basophils Relative 0.3 % LAB HEMETOLOGY METHOD 04/28/2025 11:05 AM [facility] Immature Granulocytes Relative 0.3 % LAB HEMETOLOGY METHOD 04/28/2025 11:05 AM [facility] Neutrophils Absolute 5.13 1.50 - 7.00 K/mcL LAB HEMETOLOGY METHOD 04/28/2025 11:05 AM [facility] Lymphocytes Absolute 1.45 1.00 - 5.00 K/mcL LAB HEMETOLOGY METHOD 04/28/2025 11:05 AM [facility] Monocytes Absolute 0.67 0.20 - 1.00 K/mcL LAB HEMETOLOGY METHOD 04/28/2025 11:05 AM [facility] Eosinophils Absolute 0.11 0.00 - 0.50 K/mcL LAB HEMETOLOGY METHOD 04/28/2025 11:05 AM [facility] Basophils Absolute 0.02 0.00 - 0.20 K/mcL LAB HEMETOLOGY METHOD 04/28/2025 11:05 AM [facility] Immature Granulocytes Absolute 0.02 0.00 - 0.03 K/mcL LAB HEMETOLOGY METHOD 04/28/2025 11:05 AM [facility] Blood Venous blood specimen / Unknown Venipuncture / Unknown 04/28/2025 10:31 AM EDT 04/28/2025 10:57 AM EDT Connor Pace MD LAB BLOOD ORDERABLES Final Result [facility] [address] [place] [address], * (ABNORMAL) Basic metabolic panel (04/28/2025 10:31 AM EDT) Sodium 140 133 - 145 mmol/L LAB CHEMISTRY METHOD 04/28/2025 11:24 AM [facility] Potassium 4.7 3.5 - 5.5 mmol/L LAB CHEMISTRY METHOD 04/28/2025 11:24 AM [facility] Chloride 110 96 - 110 mmol/L LAB CHEMISTRY METHOD 04/28/2025 11:24 AM [facility] CO2 21 21 - 32 mmol/L LAB CHEMISTRY METHOD 04/28/2025 11:24 AM [facility] Anion Gap 9 3 - 11 LAB CHEMISTRY METHOD 04/28/2025 11:24 AM [facility] Glucose 90 70 - 100 mg/dL LAB CHEMISTRY METHOD 04/28/2025 11:24 AM [facility] BUN 82(H) 5 - 25 mg/dL LAB CHEMISTRY METHOD 04/28/2025 11:24 AM [facility] Creatinine 4.17(H) 0.50 - 1.10 mg/dL LAB CHEMISTRY METHOD 04/28/2025 11:24 AM [facility] eGFR 11(L) >=60 mL/min/1. 73m2 LAB CHEMISTRY METHOD 04/28/2025 11:24 AM [facility] Comment:Calculation based on the Chronic Kidney Disease Epidemiology Collaboration (CKD-EPI) equation refit without adjustment for race. BUN/Creatinine Ratio 19.7 LAB CHEMISTRY METHOD 04/28/2025 11:24 AM [facility] Calcium 8.3(L) 8.5 - 10.5 mg/dL LAB CHEMISTRY METHOD 04/28/2025 11:24 AM EDT [facility] Blood Venous blood specimen / Unknown Venipuncture / Unknown 04/28/2025 10:31 AM EDT 04/28/2025 10:56 AM EDT Connor Pace MD LAB BLOOD ORDERABLES Final Result [facility] [address] [place] [address], * Echo Outside Images/Report (04/21/2025 9:30 AM EDT) Anatomical Region Laterality Modality Ultrasound Historical Provider CV ECHO PROCEDURES Final Result * GRZEGORZ SCREENING DIGITAL (12/23/2018 9:09 AM EST) Anatomical Region Laterality Modality Mammography 12/23/2018 8:05 AM EST Narrative 12/23/2018 9:09 AM EST [facility] Diagnostic Imaging Department [address] [place] [id number] Patient: ANNABELLE COLEMAN D.O.B./Age/Sex: 1950 - 68 - F Unit#: [id number] Location/Status: SPDIMAM/REG CLI Mnem[facility] Physician: ROC FORD MD Grzegorz Screening Digital - 12/23/18845 EXAM: Grzegorz Screening Digital EXAM DATE AND TIME: 12/23/2018 8:47 AM HISTORY: Screening. COMPARISON: 05/29/17, 09/13/15, 07/13/10 TECHNIQUE: CC and MLO views of both breasts were obtained using full field digital mammography. Bilateral digital breast tomosynthesis was performed in the MLO projection. Computer aided detection with the [place] 7.2-H was employed. TISSUE DENSITY: b. There are scattered areas of fibroglandular density. FINDINGS: No suspicious masses, grouped microcalcifications, or areas of architectural distortion are seen. The skin and vascularity are unremarkable. IMPRESSION: Stable mammographic appearance of the breasts. No evidence of malignancy is seen. A negative mammogram in the presence of a clinically suspicious palpable abnormality does not preclude the possibility of malignancy or alter the indications for biopsy. BI-RADS: Category 1: Negative RECOMMENDATION(S): 1: Routine screening mammogram BILATERAL in 1 year. 93284, 37456 3341F, 7025F Dictating Physician: SYDNEY COTTON MD Electronically Signed by: SYDNEY COTTON MD Dic Date/Time: 12/23/18908 Sign date/Time: 12/23/18908 Procedure Note Sydney Cotton MD - 10/23/2022 [facility] Diagnostic Imaging Department [address] [place] [address] Patient: ANNABELLE COLEMAN eWndy Xiong/Age/Sex: 1950 68 - F Unit#: [id number] Location/Status: [facility] CLI Mnemonic/Ordering Site: [facility] Ordering Physician: ROC FORD MD [facility] Screening Digital - 12/23/18 - 845 EXAM: [facility] Screening Digital EXAM DATE AND TIME: 12/23/2018 8:47 AM HISTORY: Screening. COMPARISON: 05/29/17, 09/13/15, 07/13/10 TECHNIQUE: CC and MLO views of both breasts were obtained using fullfield digital mammography. Bilateral digital breast tomosynthesis was performedin the MLO projection. Computer aided detection with the [place] 7.2-[employer] employed. TISSUE DENSITY: b. There are scattered areas of fibroglandular density. FINDINGS: No suspicious masses, grouped microcalcifications, or areas ofarchitectural distortion are seen. The skin and vascularity are unremarkable. IMPRESSION: Stable mammographic appearance of the breasts. No evidence of malignancyis seen. A negative mammogram in the presence of a clinically suspicious palpable abnormality does not preclude the possibility of malignancy or alter the indications for biopsy. BI-RADS: Category 1: Negative RECOMMENDATION(S): 1: Routine screening mammogram BILATERAL in 1 year. 99771, [address]8713 3341F, 7025F Dictating Physician: SYDNEY COTTON MD Electronically Signed by: SYDNEY COTTON MD Dic Date/Time: 12/23/18908 Sign date/Time: 12/23/18908 Roc Ford MD IMG BI PROCEDURES Final Result from Last 3 Months or Most Recently Relevant to Health Maintenance Insurance * Guarantor: Annabelle Coleman Account Type Relation to Patient Date of Phone Billing Address Personal/Family Self 1950 [phone] (Work) [address] [facility] [address] [place] [address] MEDICARE Advance Directives * Full Code - Default (Latest Code Status on File) Date Activated Date Inactivated Comments 04/28/2025 10:28 AM 04/28/2025 7:34 PM This is ord er is used when code status has not been discussed with the patient, or code status is otherwise unknown/unconfirmed To update the patient's code status, place a code status order. Do not modify or discontinue any currently active code status orders. Care Teams Double End Chucking Machine Operator Relationship Specialty Start Date End Date Barbara Winchester MD [address] [place] [id number] PCP - General Internal Medicine 04/28/25
[2025-05-04 14:45] LABS: MANUAL DIFF FLAG NO
[2025-05-04 14:59] LABS: Hematocrit 26.7 % (37.0-47.0); Hemoglobin 8.5 g/dl (12.0-16.0); Imm Gran Abs Auto 0.03 X10*3/uL (0.00-0.03); Imm Gran Pct Auto 0.3 % (0.0-0.4); Lymphocytes Absolute Auto 1.9 X10*3/uL (1.2-4.9); Mean Corpuscular HGB Conc 31.8 g/dl (31.0-35.0); Mean Corpuscular Hemoglobin 28.3 pg (27.0-33.0); Mean Corpuscular Volume 89.0 fL (80.0-98.0); NRBC Abs Auto 0.000 X10*3/uL (0.0-0.012); NRBC Pct Auto 0.0 /100WBC (0.0-0.2); Platelet Count 185 X10*3/uL (160-400); Red Blood Count 3.00 X10*6/uL (4.20-5.50); White Blood Count 9.2 X10*3/uL (4.8-10.8)
[2025-05-04 15:12] LABS: Anion Gap 16 (12-20); Blood Urea Nitrogen 88 mg/dL (9-16); Calcium 8.5 mg/dL (8.4-10.2); Carbon Dioxide 19 mmol/L (22-29); Chloride 110 mmol/L (96-108); Estimated Glomerular Filt Rate 11; Iron 40 mcg/dL (30-160); Percent Iron Saturation 18 % (15-50); Potassium 4.8 mmol/L (3.3-5.1); Sodium 140 mmol/L (135-145); Total Iron Binding Capacity 217 mcg/dL (228-428); Unsaturated Iron Binding 177 ug/dL
[2025-05-04 15:20] LABS: Ferritin 109 ng/mL (10-250)
== END 2025-05-04 09:06 | disposition home or self-care (01) ==
LOC: HO.HKASLDS 09:05
PROVIDERS: Visit Provider Internal Medicine Nephrology
DX: I12.9 Hypertensive chronic kidney disease with stage 1 through stage 4 chronic kidney disease, or unspecified chronic kidney disease (principal); E11.22 Type 2 diabetes mellitus with diabetic chronic kidney disease; N18.4 Chronic kidney disease, stage 4 (severe); D63.1 Anemia in chronic kidney disease; E11.21 Type 2 diabetes mellitus with diabetic nephropathy; N25.81 Secondary hyperparathyroidism of renal origin
CPT/HCPCS: 36415; 80051; 82310; 82565; 82728; 83540; 84520; 85025

== ENCOUNTER 2025-05-10 14:49 | Outpatient (AMB) | payer MEDICARE, OTHER, SELFPAY ==
--- OUTSIDE RECORDS SUMMARY | 2025-05-10 15:31 | XMS_ITS | Clinical Summary ---
Author Organization [facility] Address [address] [facility] [address] [place] [address] Phone Care Team Providers Care C Java Developer Name Role Phone Barbara Winchester MD Primary [...] tablet 3 10/07/2022 Active ergocalciferol 1.25 MG (05810 UT) capsule Take 50,000 Units by mouth [...] Visual Foot Exam 12/03/2020 Influenza Vaccine (#1) 2025 Pneumococcal Vaccine: Peds ( 0 to [...] average glucose, using the formula of the M4W-Wffiuil Average Glucose study (ADAG), Diabetes Care, Vol.31,#8, Jun. 2007 05/15/2020 8:26 AM EDT us Alma Delia Ford MD LAB BLOOD ORDERABLES Final Resu lt [place] from Last 3 Months or Most Recently Relevant to Health Maintenance Insurance [facility] Medicare [facility] Medicare Care Teams C Java Developer Relationship Specialty Start Date End Date Barbara Winchester MD PCP - General Dental Unindentured Apprentice 04/01/23
[2025-05-10 15:39] VITALS: BP 130/60; PULSE 62; O2SAT 94; BMI 31.4
--- NOTE | 2025-05-10 15:39 | HO.NEPHOV_ITS ---
Vital Signs 05/10/25 15:39 Height 5 ft 3 in Weight 177 lb BMI 31.4 BP 130/60 Blood Pressure Location Rt brachial Position Sitting Pulse 62 Pulse Source Pulse Oximeter Pulse Oximetry (%) 94 Oxygen Delivery Method Room Air Intake Visit Reasons: 6wk Procrit follow-up w/labs-Conf Stump Shooter Required: No Accompanied by: Self / Same As Patient Allergies liraglutide (Victoza) Allergy (Unknown, Verified 05/10/25 15:41) Unknown lisinopril (LISINOPRIL) Allergy (Unknown, Verified 05/10/25 15:41) cough adhisive Allergy (Unknown, Uncoded 10/20/23 14:28) Unknown HPI Comments Details: Annabelle was seen in the office in follow-up for chronic kidney disease, proteinuria and hypertension. Her BP is better with weight loss with diuretics . She has history of coronary disease, CABG and AVR. She has diabetic retinopathy. She denies any chest pain, shortness of breath, proximal nocturnal dyspnea, orthopnea, nausea, vomiting, diarrhea or urinary symptoms. She was on Trulicity in the past but stopped due to side effects. Her recent serum creatinine has been around 3. Her losartan has been put on hold . She continues to have proteinuria over 3 g. Her SOBE is better now. She denies PND or worsening edema. She had FOB + and is awaiting colonoscopy. Her BP has been fluctuant with orthostasis. She had AVF. [facility] Medical History (Updated 03/29/25 @ 11:49 by Romeo Ni MD) Secondary hyperparathyroidism (of renal origin) Diabetic retinopathy Essential (primary) hypertension Aortic valve stenosis Chronic diastolic CHF (congestive heart failure) Type 2 diabetes mellitus CKD (chronic kidney disease) stage 3, GFR 30-59 ml/min HLD (hyperlipidemia) Surgical History Aortic valve replaced S/P quadruple vessel bypass Family History Father Diabetes Social History Alcohol intake: never Patient Tobacco Use Status: Never used Tobacco Review of Systems Const All systems reviewed & are unremarkable except as noted in HPI and below Physical Exam Vital Signs: Last Vital Signs Pulse 62 05/10/25 15:39 BP 170/60 H 05/10/25 15:39 Pulse Ox 94 05/10/25 15:39 Oxygen Delivery Method Room Air 05/10/25 15:39 BMI result Body Mass Index 31.4 Const General: comfortable and no acute distress Orientation/consciousness: patient oriented x3 HEENT Head: Yes normocephalic Mouth: Normal oral and palatal mucosa present Eyes EOM: EOMs intact bilaterally Neck Neck: Yes supple Resp Auscultation: clear to auscultation bilaterally Cardio Jugular venous distension: no JVD Rate: regular rate GI Palpation (GI): Soft to palpation Auscultation: normal bowel sounds General: Yes no CVA tenderness Back/Spine/Pelvis Back: no CVA tenderness Skin General skin exam: no rashes or lesions noted Neuro General: patient oriented x3 and moves all extremities Extrem General: Yes no pedal edema Office Meds epoetin kristopher-epbx 10,000 unit/mL injection solution Performing Provider: Romeo Ni MD Performing Location: [facility] Administered by: Romeo Ni MD on 05/10/25 15:59 Dose Route Admin Location Dispensed Lot Number Expiration Date [facility] Surplus Property Disposal Agent 40,000 unit subcut LUE 4 mL [id number] 12/04/26 2843-0743-64 [facility] [employer] Total Dispensed Waste 4 mL 0 % Results Reviewed Nephrology Results: Hgb, (12.0-16.0) 8.5 g/dl L 05/04/25 WBC, (4.8-10.8) 9.2 X10*3/uL 05/04/25 Plt Count, (160-400) 185 X10*3/uL 05/04/25 Sodium, (135-145) 140 mmol/L 05/04/25 Potassium, (3.3-5.1) 4.8 mmol/L 05/04/25 Chloride, (96-108) 110 mmol/L H 05/04/25 Carbon Dioxide, (22-29) 19 mmol/L L 05/04/25 BUN, (9-16) 88 mg/dL H 05/04/25 Creatinine, (0.5-1.4) 4.08 mg/dL H* 05/04/25 Calcium, (8.4-10.2) 8.5 mg/dL 05/04/25 Phosphorus, (2.7-4.5) 4.0 mg/dL 10/25/24 PTH Intact, (8.7-77.1) 348.3 pg/mL H 03/01/25 Assessment & Plan Assessment & Plan (1) Anemia in chronic kidney disease: Code(s): N18.9 - Chronic kidney disease, unspecified; D63.1 - Anemia in chronic kidney disease Category: Medical Qualifiers: Chronic kidney disease stage: stage 3 (moderate) Chronic kidney disease stage 3 subtype: stage 3b (GFR 30-44) Qualified Code(s): N18.32 - Chronic kidney disease, stage 3b; D63.1 - Anemia in chronic kidney disease (2) CKD stage 4 due to type 2 diabetes mellitus: Code(s): E11.22 - Type 2 diabetes mellitus with diabetic chronic kidney disease; N18.4 - Chronic kidney disease, stage 4 (severe) Category: Medical (3) Diabetic nephropathy: Code(s): E11.21 - Type 2 diabetes mellitus with diabetic nephropathy Category: Medical Qualifiers: Diabetes mellitus type: type 2 Qualified Code(s): E11.21 - Type 2 diabetes mellitus with diabetic nephropathy (4) Secondary hyperparathyroidism (of renal origin): Code(s): N25.81 - Secondary hyperparathyroidism of renal origin Category: Medical (5) Essential (primary) hypertension: Code(s): I10 - Essential (primary) hypertension Category: Medical Plan 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 She has history of MGUS as well. She is hypertensive and has history of high MITCHELL. She needs a sleep study. She F/U with Dr Shaquille Davila . She could continue current dose of Lasix. She had declined renal biopsy in the past. Her losartan is currently on hold . I gave her 39690 U Procrit today. She should maintain good hydration. She had stopped NaHCO3. I discussed about declining renal functions and potential need for renal replacement in the future. She had dialysis education. She had AVF by Dr Ward for AVF. She can continue calcitriol 0.2 mcg 3 times a week. Given orthostasis , I reduced her hydralazine to 50 mg AM and 25 mg PM. I did not make any other medication changes today. She should lose weight. Follow-up blood work ordered. All questions answered Orders: Orders AMB Epoetin Injection Practice Supplied Today D63.1 - Anemia in chronic kidney disease, N18.32 - Chronic kidney disease, stage 3b Creatinine 1 Month D63.1 - Anemia in chronic kidney disease, E11.21 - Type 2 diabetes mellitus with diabetic nephropathy, E11.22 - Type 2 diabetes mellitus with diabetic chronic kidney disease, I10 - Essential (primary) hypertension, N18.32 - Chronic kidney disease, stage 3b, N18.4 - Chronic kidney disease, stage 4 (severe), N25.81 - Secondary hyperparathyroidism of renal origin Blood Urea Nitrogen 1 Month D63.1 - Anemia in chronic kidney disease, E11.21 - Type 2 diabetes mellitus with diabetic nephropathy, E11.22 - Type 2 diabetes mellitus with diabetic chronic kidney disease, I10 - Essential (primary) hypertension, N18.32 - Chronic kidney disease, stage 3b, N18.4 - Chronic kidney disease, stage 4 (severe), N25.81 - Secondary hyperparathyroidism of renal origin Calcium 1 Month D63.1 - Anemia in chronic kidney disease, E11.21 - Type 2 diabetes mellitus with diabetic nephropathy, E11.22 - Type 2 diabetes mellitus with diabetic chronic kidney disease, I10 - Essential (primary) hypertension, N18.32 - Chronic kidney disease, stage 3b, N18.4 - Chronic kidney disease, stage 4 (severe), N25.81 - Secondary hyperparathyroidism of renal origin Complete Blood Count Auto Diff 1 Month D63.1 - Anemia in chronic kidney disease, E11.21 - Type 2 diabetes mellitus with diabetic nephropathy, E11.22 - Type 2 diabetes mellitus with diabetic chronic kidney disease, I10 - Essential (primary) hypertension, N18.32 - Chronic kidney disease, stage 3b, N18.4 - Chronic kidney disease, stage 4 (severe), N25.81 - Secondary hyperparathyroidism of renal origin Electrolytes 1 Month D63.1 - Anemia in chronic kidney disease, E11.21 - Type 2 diabetes mellitus with diabetic nephropathy, E11.22 - Type 2 diabetes mellitus with diabetic chronic kidney disease, I10 - Essential (primary) hypertension, N18.32 - Chronic kidney disease, stage 3b, N18.4 - Chronic kidney disease, stage 4 (severe), N25.81 - Secondary hyperparathyroidism of renal origin Coding Level of Care Code Est Pt Level 4 (31891) Diagnoses Anemia in stage 3b chronic kidney disease N18.32; D63.1 Chronic kidney disease stage: stage 3 (moderate) Chronic kidney disease stage 3 subtype: stage 3b (GFR 30-44) CKD stage 4 due to type 2 diabetes mellitus E11.22; N18.4 Diabetic nephropathy associated with type 2 diabetes mellitus E11.21 Diabetes mellitus type: type 2 Secondary hyperparathyroidism (of renal origin) N25.81 Essential (primary) hypertension I10
== END 2025-05-10 16:15 | disposition home or self-care (01) ==
PROVIDERS: PCP Internal Medicine; Visit Provider Internal Medicine Nephrology
DX: I12.9 Hypertensive chronic kidney disease with stage 1 through stage 4 chronic kidney disease, or unspecified chronic kidney disease (principal); E11.22 Type 2 diabetes mellitus with diabetic chronic kidney disease; N18.4 Chronic kidney disease, stage 4 (severe); D63.1 Anemia in chronic kidney disease; N25.81 Secondary hyperparathyroidism of renal origin
CPT/HCPCS: 99214

== ENCOUNTER → 2025-05-10 14:49 | Outpatient (BNVA) | payer MEDICARE, OTHER, SELFPAY | PROVIDERS: PCP Internal Medicine; Visit Provider Internal Medicine Nephrology | DX: N18.32 Chronic kidney disease, stage 3b (principal); N18.4 Chronic kidney disease, stage 4 (severe); D63.1 Anemia in chronic kidney disease; I12.9 Hypertensive chronic kidney disease with stage 1 through stage 4 chronic kidney disease, or unspecified chronic kidney disease; E11.22 Type 2 diabetes mellitus with diabetic chronic kidney disease; E11.21 Type 2 diabetes mellitus with diabetic nephropathy; N25.81 Secondary hyperparathyroidism of renal origin; Z79.899 Other long term (current) drug therapy | CPT/HCPCS: 96372; 99212; Q5106 ==

== ENCOUNTER 2025-05-30 09:01 | Outpatient (REF) | payer MEDICARE, OTHER, SELFPAY ==
--- OUTSIDE RECORDS SUMMARY | 2025-05-30 09:38 | XMS_ITS | Clinical Summary ---
Author Organization [facility] Address [address] [place] [address] Phone Care Team Providers Care Pathology Manager Name Role Phone Barbara Winchester MD Primary [...] 6 (six) hours if needed for anxiety. Active aspirin 81 mg EC tablet Take 1 tablet (81 mg total) by mouth 1 (one) time each day. Active oxyCODONE (ROXICODONE) 5 mg immediate release tablet Take 1 tablet (5 mg total) by mouth every 6 (six) hours if needed for severe pain. Max Daily Amount: 20 mg 7 tablet 04/28/2025 Active Active Problems Problem Noted Date Diagnosed Date HTN (hypertension) 04/28/2025 Anemia 04/28/2025 Type 2 diabetes mellitus wit h renal complication ([facility] V24, [facility] V28) 04/28/2025 CAD (coronary artery disease) 04/28/2025 Hx of CABG 04/28/2025 CKD (chronic kidney disease) stage 5, GFR less than 15 ml/min ([facility] V24, [facility] V28) 04/05/2025 Resolved Problems Problem Noted Date Diagnosed Date Resolved Date Diabetes mellitus type 1 ([facility] V24, [facility] V28) 04/28/2025 04/28/2025 Encounters Date Type Department Care Team Description 05/05/2025 1:15 PM EDT Office Visit General Surgery [address] [place] [address] Connor Pace MD CKD (chronic kidney disease) stage 5, GFR less than 15 ml/min ([facility] V24, [facility] V28) (Primary Dx) 04/28/2025 2:54 PM EDT Anesthesia Event [facility] OR [address] [place] [phone] Leandro Flores DO Kriz, Petra, MD 04/28/2025 12:00 PM EDT - 04/28/2025 1:45 PM EDT Surgery [facility] OR [address] [place] [phone] Connor Pace MD CREATION AV FISTULA LEFT UPPER EXTREMITY [45679 (CPT )] 04/28/2025 10:25 AM EDT - 04/28/2025 5:29 PM EDT Hospital Encounter [facility] OR [address] [place] [phone] Connor Pace MD Discharge Disposition: Home or Self Care 04/05/2025 9:15 AM EDT Consult General Surgery - [place] [address] [facility] [address] [place] [phone] Connor Pace MD Chronic kidney disease, stage 4 (severe) ([facility] V24, [facility] V28) from Last 3 Months Surgical History [...] Coronary atherosclerosis of unspecified type of vessel, [place] or graft 07/27/02 DX:Coronary atheroscle rosis of unspecified type of vessel, [place] or graft; COMMENT: Echo 09/11/02-- EF at 55% Secondary hyperparathyroidis m ([facility] V24) Fluid retention Family History Medical History Relation Name Comments Diabetes Father Relation Name Status Comments Father Social History Tobacco Use Types Packs/Day Years Used Date Smoking Tobacco: Never Tobacco Cessation:Counseling Given: Not Answered Alcohol Use Standard Drinks/Week Comments No 0 (1 standard drink = 0.6 oz pur e alcohol) Comments No Sex and Gender Information Value Date Recorded Sex Assigned at Not on file Legal Sex Female 11:56 PM EST Gender Identity Not on file Sexual Orientation Not on file Obstetrics History Last Filed Vital Signs Vital Sign Reading Time Taken Comments Blood Pressure 156/69 05/05/2025 1:00 PM EDT Pulse 65 05/05/2025 1:00 PM EDT Temperature 35.7 C (96.2 F) 04/28/2025 4:28 PM EDT Respiratory Rate 16 04/28/2025 4:28 PM EDT Oxygen Saturation 95% 04/28/2025 4:28 PM EDT Inhaled Oxygen Concentration - - Weight 82.3 kg (181 lb 6.4 oz) 05/05/2025 1:00 P M EDT Height 157.5 cm (5' 2 ) 04/14/2025 1:00 PM EDT Body Mass Index 33.18 04/14/2025 1:00 PM EDT Plan of Treatment Upcoming Encounters Date Type Department Care Team (Late st Contact Info) Description 06/08/2025 9:45 AM EDT Office Visit General Surgery - [place] [address] [facility] [address] [place] [address] Connor Pace MD [address] [facility] [address] [place] [address] Health Maintenance Due Date Last Done Comments Diabetes: Annual Foot Exam 1960 Diabetes: Annual Retina Eye Exam 1960 Hepatitis A Vaccines (1 of 2 - Risk 2-dose series) 1969 Zoster Vaccines (1 of 2) 1969 Hepatitis B Vaccines (1 of 3 - Risk 3-dose series) 2010 COVID-19 Vaccine ( season) 2024 09/18/2022, 09/23/2021, 02/11/2021, Additional history exists Depression Screening 11/03/2024 Cholesterol Screening (Lipid Panel) 03/31/2025 Diabetes: Blood Sugar Control Test (HGBA1C) 03/31/2025 05/15/2020 Hepatitis C Screening 03/31/2025 Medicare Annual Wellness Visit 03/31/2025 Osteoporosis Screening (Bone Density Screening) 03/31/2025 Social Influencers of Health Screening 03/31/2025 RSV Immunization Adult Patients (1 - 1-dose 75+ series) 2025 Influenza Vaccine (#1) 2025 3, 09/07/2021, 08/19/2019, Additional history exists Falls Risk [...] Procedure Name Priority Date/Time Associated Diagnosis Comments AK ANASTOMOSIS ARTERIOVENOUS DIRECT ANY SITE OPEN (SEPARATE PROCEDURE) 04/28/2025 2:54 PM EDT CKD (chronic kidney disease) stage 5, GFR less than 15 ml/min (CMS/HCC V24, CMS/HCC V28) Special Needs Creation AV fistula left [...] GEMUSE QTc 487 ms GEMUSE P Wave [place] 45 degrees GEMUSE R [place] -60 degrees GEMUSE T [place] 113 degrees GEMUSE ECG Interpretation Sinus bradycardia [...] AM EDT) WBC 7.4 4.8 - 10.8 K/[facility] LAB HEMETOLOGY METHOD 04/28/2025 11:05 AM EDT [facility] RBC 3.30(L) 3.80 - 4.80 M/[facility] LAB HEMETOLOGY METHOD 04/28/2025 11:05 AM [facility] Hemoglobin 9.2(L) 11.5 - 16.0 g/dL LAB HEMETOLOGY METHOD 04/28/2025 11:05 AM [facility] Hematocrit 29.8(L) 35.0 - 47.0 % LAB HEMETOLOGY METHOD 04/28/2025 11:05 AM [facility] MCV 91.7 79.0 - 98.0 FL LAB HEMETOLOGY METHOD 04/28/2025 11:05 AM [facility] MCH 28.3 27.0 - 32.0 pcg LAB HEMETOLOGY METHOD 04/28/2025 11:05 AM [facility] MCHC 30.9(L) 32.0 - 37.0 g/dL LAB HEMETOLOGY METHOD 04/28/2025 11:05 AM [facility] RDW 15.0 11.0 - 15.0 % LAB HEMETOLOGY METHOD 04/28/2025 11:05 AM [facility] Platelets 221 130 - 400 K/mcL LAB HEMETOLOGY METHOD 04/28/2025 11:05 AM [facility] MPV 12.3(H) 7.0 - 11.0 FL LAB HEMETOLOGY METHOD 04/28/2025 11:05 AM [facility] NRBC 0.0 <1.0 % LAB HEMETOLOGY METHOD 04/28/2025 11:05 AM [facility] NRBC Absolute 0.00 <0.10 K/mcL LAB HEMETOLOGY METHOD 04/28/2025 11:05 AM [facility] Neutrophils Relative 69.2 % LAB HEMETOLOGY METHOD 04/28/2025 11:05 AM [facility] Lymphocytes Relative 19.6 % LAB HEMETOLOGY METHOD 04/28[facility]25 [facility] Monocytes Relative 9.1 % LAB HEMETOLOGY METHOD 04/28/2025 11:05 AM [facility] Eosinophils Relative 1.5 % LAB HEMETOLOGY METHOD 04/28/2025 11:05 AM [facility] Basophils Relative 0.3 % LAB HEMETOLOGY METHOD 04/28/2025 11:05 AM [facility] Immature Granulocytes Relative 0.3 % LAB HEMETOLOGY METHOD 04/28/2025 11:05 AM [facility] Neutrophils Absolute 5.13 1.50 - 7.00 K/mcL LAB HEMETOLOGY METHOD 04/28/2025 11:05 AM [facility] Lymphocytes Absolute 1.45 1.00 - 5.00 K/mcL LAB HEMETOLOGY METHOD 04/28/2025 11:05 AM [facility] Monocytes Absolute 0.67 0.20 - 1.00 K/mcL LAB HEMETOLOGY METHOD 04/28/2025 11:05 AM [facility] Eosinophils Absolute 0.11 0.00 - 0.50 K/mcL LAB HEMETOLOGY METHOD 04/28/2025 11:05 AM [facility] Basophils Absolute 0.02 0.00 - 0.20 K/mcL LAB HEMETOLOGY METHOD 04/28/2025 11:05 AM [facility] Immature Granulocytes Absolute 0.02 0.00 - 0.03 K/mcL LAB HEMETOLOGY METHOD 04/28/2025 11:05 AM [facility] Blood Venous blood specimen / Unknown Venipuncture / Unknown 04/28/2025 10:31 AM EDT 04/28/2025 10:57 AM EDT us Connor Pace MD LAB BLOOD ORDERABLES Final Result [facility] [address] [place] [address], * (ABNORMAL) Basic metabolic panel (04/28/2025 10:31 AM EDT) Sodium 140 133 - 145 mmol/L LAB CHEMISTRY METHOD 04/28/2025 11:24 AM [facility] Potassium 4.7 3.5 - 5.5 mmol/L LAB CHEMISTRY METHOD 04/28/2025 11:24 AM [facility] Chloride 110 96 - 110 mmol/L LAB CHEMISTRY METHOD 04/28/2025 11:24 AM [facility] CO2 21 21 - 32 mmol/L LAB CHEMISTRY METHOD 04/28/2025 11:24 AM [facility] Anion Gap 9 3 - 11 LAB CHEMISTRY METHOD 04/28/2025 11:24 AM [facility] Glucose 90 70 - 100 mg/dL LAB CHEMISTRY METHOD 04/28/2025 11:24 AM [facility] BUN 82(H) 5 - 25 mg/dL LAB CHEMISTRY METHOD 04/28/2025 11:24 AM [facility] Creatinine 4.17(H) 0.50 - 1.10 mg/dL LAB CHEMISTRY METHOD 04/28/2025 11:24 AM [facility] eGFR 11(L) >=60 mL/min/1. 73m2 LAB CHEMISTRY METHOD 04/28/2025 11:24 AM [facility] Comment:Calculation based on the Chronic Kidney Disease Epidemiology Collaboration (CKD-EPI) equation refit without adjustment for race. BUN/Creatinine Ratio 19.7 LAB CHEMISTRY METHOD 04/28/2025 11:24 AM [facility] Calcium 8.3(L) 8.5 - 10.5 mg/dL LAB CHEMISTRY METHOD 04/28/2025 11:24 AM [facility] Blood Venous blood specimen / Unknown Venipuncture / Unknown 04/28/2025 10:31 AM EDT 04/28/2025 10:56 AM EDT Connor Pace MD LAB BLOOD ORDERABLES Final Result [facility] LAB [address] [place] [address], * Echo Outside Images/Report (04/21/2025 9:30 AM EDT) Anatomical Region Laterality Modality Ultrasound Historical Provider CV ECHO PROCEDURES Final Result * GRZEGORZ SCREENING DIGITAL (12/23/2018 9:09 AM EST) Anatomical Region Laterality Modality Mammography 12/23/2018 8:05 AM EST Narrative 12/23/2018 9:[address] [facility] Diagnostic Imaging Department [address] [place], [place] [phone] Patient: TANYAANNABELLE D.O.B./Age/Sex: 1950 - 68 - F Unit#: [id number] [facility] Mnemonic/Ordering Site: DIGSC/SPMAM Ordering Physician: ROC FORD MD Grzegorz Screening Digital - 12/23/18 - 0846 EXAM: Grzegorz Screening Digital EXAM DATE AND TIME: 12/23/2018 8:47 AM HISTORY: Screening. COMPARISON: 05/29/17, 09/13/15, 07/13/10 TECHNIQUE: CC and MLO views of both breasts were obtained using full field digital mammography. Bilateral digital breast tomosynthesis was performed in the MLO projection. Computer aided detection with the XillianTV 7.2-H was employed. TISSUE DENSITY: b. There [...] Routine screening mammogram BILATERAL in 1 year. 18917, 26696 3341F, 7025F Dictating Physician: SYDNEY COTTON MD Electronically Signed by: SYDNEY COTTON MD Dic Date/Time: 12/23/18908 Sign date/Time: 12/23/18908 Procedure Note Sydney Cotton MD - 10/23/2022 [facility] Diagnostic Imaging Department [address] [place] [id number] Patient: TANYAANNABELLE D.O.B./Age/Sex: 1950 - 68 - F Unit#: [id number] Location/Status: [facility] Mnemonic/Ordering Site: [facility] Ordering Physician: ROC FORD MD Grzegorz Screening Digital - 12/23/18 - 0846 EXAM: [facility] Screening Digital EXAM DATE AND TIME: 12/23/2018 8:47 AM HISTORY: Screening. COMPARISON: 05/29/17, 09/13/15, 07/13/10 TECHNIQUE: CC and MLO views of both breasts were obtained using fullfield digital mammography. Bilateral digital breast tomosynthesis was performedin the MLO projection. Computer aided detection with the [employer] Internationalas employed. TISSUE DENSITY: b. There are scattered [...] Routine screening mammogram BILATERAL in 1 year. 12253, 40530 3341F, 7025F Dictating Physician: SYDNEY COTTON MD Electronically Signed by: SYDNEY COTTON MD Dic Date/Time: 12/23/18908 Sign date/Time: 12/23/18908 Roc Ford MD IMG BI PROCEDURES Final Resul t from Last 3 Months or Most Recently Relevant to Health Maintenance Insurance * Guarantor: Annabelle Coleman Account Type Relation to Patient Date of Phone Billing Address Personal/Family Self 1950 [phone] (Work) [address] [facility] [address] [place] [address] MEDICARE [facility] Advance Directives * Full Code - Default (Latest Code Status on File) Date Activated Date Inactivated Comments 04/28/2025 10:28 AM 04/28/2025 7:34 PM This is or haleigh is used when code status has not been discussed with the patient, or code status is otherwise unknown/unconfirmed To update the patient's code status, place a code status order. Do not modify or discontinue any currently active code status orders. Care Teams Pathology Manager Relationship Specialty Start Date End Date Barbara Winchester MD [address] [place] [address] PCP - General Internal Medicine 04/28/25
--- OUTSIDE RECORDS SUMMARY | 2025-05-30 09:38 | XMS_ITS | Clinical Summary ---
Author Organization [facility] Address [address] [facility] [address] [place] [address] Phone Care Team Providers Care Biomedical Engineering Technologist Name Role Phone Barbara Winchester MD Primary [...] tablet 3 10/07/2022 Active ergocalciferol 1.25 MG (05751 UT) capsule Take 50,000 Units by mouth [...] average glucose, using the formula of the U7T-Cojldpp Average Glucose study (ADAG), Diabetes Care, Vol.31,#8, Jun. 2007 05/15/2020 8:26 AM EDT us Alma Delia Ford MD LAB BLOOD ORDERABLES Final Resu lt [place] from Last 3 Months or Most Recently Relevant to Health Maintenance Insurance [facility] Medicare [facility] Medicare Care Teams Biomedical Engineering Technologist Relationship Specialty Start Date End Date Barbara Winchester MD PCP - General Dental Deburrer Strip 04/01/23
[2025-05-30 10:08] LABS: MANUAL DIFF FLAG NO
[2025-05-30 10:19] LABS: Hematocrit 26.2 % (37.0-47.0); Hemoglobin 8.1 g/dl (12.0-16.0); Imm Gran Abs Auto 0.02 X10*3/uL (0.00-0.03); Imm Gran Pct Auto 0.3 % (0.0-0.4); Lymphocytes Absolute Auto 1.2 X10*3/uL (1.2-4.9); Mean Corpuscular HGB Conc 30.9 g/dl (31.0-35.0); Mean Corpuscular Hemoglobin 27.4 pg (27.0-33.0); Mean Corpuscular Volume 88.5 fL (80.0-98.0); NRBC Abs Auto 0.000 X10*3/uL (0.0-0.012); NRBC Pct Auto 0.0 /100WBC (0.0-0.2); Platelet Count 256 X10*3/uL (160-400); Red Blood Count 2.96 X10*6/uL (4.20-5.50); White Blood Count 7.5 X10*3/uL (4.8-10.8)
[2025-05-30 11:03] LABS: Anion Gap 18 (12-20); Blood Urea Nitrogen 100 mg/dL (9-16); Calcium 8.5 mg/dL (8.4-10.2); Carbon Dioxide 21 mmol/L (22-29); Chloride 108 mmol/L (96-108); Estimated Glomerular Filt Rate 9; Potassium 4.9 mmol/L (3.3-5.1); Sodium 142 mmol/L (135-145)
== END 2025-05-30 09:02 | disposition home or self-care (01) ==
LOC: HO.HMGCLDS 09:01
PROVIDERS: PCP Internal Medicine; Visit Provider Internal Medicine Nephrology
DX: I12.9 Hypertensive chronic kidney disease with stage 1 through stage 4 chronic kidney disease, or unspecified chronic kidney disease (principal); E11.22 Type 2 diabetes mellitus with diabetic chronic kidney disease; N18.4 Chronic kidney disease, stage 4 (severe); D63.1 Anemia in chronic kidney disease; N25.81 Secondary hyperparathyroidism of renal origin
CPT/HCPCS: 36415; 80051; 82310; 82565; 84520; 85025

== ENCOUNTER 2025-06-02 11:04 | Outpatient (AMB) | payer MEDICARE, OTHER, SELFPAY ==
--- OUTSIDE RECORDS SUMMARY | 2025-06-02 11:54 | XMS_ITS | Clinical Summary ---
Author Organization [facility] Address [address] [place] [address] Phone Care Team Providers Care Artificial Breeding Technician Name Role Phone Barbara Winchester MD Primary [...] 2 diabetes mellitus wit h renal complication ([facility] V24, [facility] V28) 04/28/2025 CAD (coronary artery disease) 04/28/2025 Hx of CABG 04/28/2025 CKD (chronic kidney disease) stage 5, GFR less than 15 ml/min ([facility] V24, [facility] V28) 04/05/2025 Resolved Problems Problem Noted Date Diagnosed Date Resolved Date Diabetes mellitus type 1 ([facility] V24, [facility] V28) 04/28/2025 04/28/2025 Encounters Date Type Department Care Team Description 05/05/2025 1:15 PM EDT Office Visit General Surgery [address] [place] [address] Connor Pace MD CKD (chronic kidney disease) stage 5, GFR less than 15 ml/min ([facility] V24, [facility] V28) (Primary Dx) 04/28/2025 2:54 PM EDT Anesthesia Event [facility] OR [address] [place] [phone] Leandro Flores DO Kriz, Petra, MD 04/28/2025 12:00 PM EDT - 04/28/2025 1:45 PM EDT Surgery [facility] OR [address] [place] [phone] Connor Pace MD CREATION AV FISTULA LEFT UPPER EXTREMITY [53840 (CPT )] 04/28/2025 10:25 AM EDT - 04/28/2025 5:29 PM EDT Hospital Encounter [facility] Main OR [address] [place] [phone] Connor Pace MD Discharge Disposition: Home or Self Care 04/05/2025 9:15 AM EDT Consult General Surgery - [place] [address] [facility] [address] [place] [phone] Connor Pace MD Chronic kidney disease, stage 4 (severe) ([facility] V24, [facility] V28) from Last 3 Months [...] Coronary atherosclerosis of unspecified type of vessel, [place] or graft 07/27/02 DX:Coronary atheroscle rosis of unspecified type of vessel, [place] or graft; COMMENT: Echo 09/11/02-- EF at 55% Secondary hyperparathyroidis m ([facility] V24) Fluid retention Family History [...] AM EDT Office Visit General Surgery - [place] [address] [facility] [address] [place] [address] Connor Pace MD [address] [facility] [address] [place] [address] Health Maintenance Due Date Last Done Comments [...] Procedure Name Priority Date/Time Associated Diagnosis Comments [place] ANASTOMOSIS ARTERIOVENOUS DIRECT ANY SITE OPEN (SEPARATE [...] GEMUSE QTc 487 ms GEMUSE P Wave [place] 45 degrees GEMUSE R [place] -60 degrees GEMUSE T [place] 113 degrees GEMUSE ECG Interpretation Sinus bradycardia [...] AM EDT) WBC 7.4 4.8 - 10.8 K/[facility] LAB HEMETOLOGY METHOD 04/28/2025 11:05 AM EDT [facility] RBC 3.30(L) 3.80 - 4.80 M/[facility] LAB HEMETOLOGY METHOD 04/28/2025 11:05 AM [facility] Hemoglobin 9.2(L) 11.5 - 16.0 g/dL LAB HEMETOLOGY METHOD 04/28/2025 11:05 AM [facility] Hematocrit 29.8(L) 35.0 - 47.0 % LAB HEMETOLOGY METHOD 04/28/2025 11:05 AM [facility] MCV 91.7 79.0 - 98.0 FL LAB HEMETOLOGY METHOD 04/28/2025 11:05 AM [facility] MCH 28.3 27.0 - 32.0 pcg LAB HEMETOLOGY METHOD 04/28/2025 11:05 AM [facility] MCHC 30.9(L) 32.0 - 37.0 g/dL LAB HEMETOLOGY METHOD 04/28/2025 11:05 AM [facility] RDW 15.0 11.0 - 15.0 % LAB HEMETOLOGY METHOD 04/28/2025 11:05 AM [facility] Platelets 221 130 - 400 K/mcL LAB HEMETOLOGY METHOD 04/28/2025 11:05 AM [facility] MPV 12.3(H) 7.0 - 11.0 FL LAB HEMETOLOGY METHOD 04/28/2025 11:05 AM [facility] NRBC 0.0 <1.0 % LAB HEMETOLOGY METHOD 04/28/2025 11:05 AM [facility] NRBC Absolute 0.00 <0.10 K/mcL LAB HEMETOLOGY METHOD 04/28/2025 11:05 AM [facility] Neutrophils Relative 69.2 % LAB HEMETOLOGY METHOD 04/28/2025 11:05 AM [facility] Lymphocytes Relative 19.6 % LAB HEMETOLOGY METHOD 04/28/[facility]25 [facility] Monocytes Relative 9.1 % LAB HEMETOLOGY METHOD 04/28/2025 11:05 AM [facility] Eosinophils Relative 1.5 % LAB HEMETOLOGY METHOD 04/28/2025 11:05 AM [facility] Basophils Relative 0.3 % LAB HEMETOLOGY METHOD 04/28/2025 11:05 AM [facility] Immature Granulocytes Relative 0.3 % LAB HEMETOLOGY METHOD 04/28/2025 11:05 AM [facility] Neutrophils Absolute 5.13 1.50 - 7.00 K/mcL LAB HEMETOLOGY METHOD 04/28/2025 11:05 AM [facility] Lymphocytes Absolute 1.45 1.00 - 5.00 K/mcL LAB HEMETOLOGY METHOD 04/28/2025 11:05 AM [facility] Monocytes Absolute 0.67 0.20 - 1.00 K/mcL LAB HEMETOLOGY METHOD 04/28/2025 11:05 AM [facility] Eosinophils Absolute 0.11 0.00 - 0.50 K/mcL LAB HEMETOLOGY METHOD 04/28/2025 11:05 AM [facility] Basophils Absolute 0.02 0.00 - 0.20 K/mcL LAB HEMETOLOGY METHOD 04/28/2025 11:05 AM [facility] Immature Granulocytes Absolute 0.02 0.00 - 0.03 K/mcL LAB HEMETOLOGY METHOD 04/28/2025 11:05 AM [facility] Blood Venous blood specimen / Unknown Venipuncture / Unknown 04/28/2025 10:31 AM EDT 04/28/2025 10:57 AM EDT us Connor Pace MD LAB BLOOD ORDERABLES Final Result [facility] [address] [place] [address], * (ABNORMAL) Basic metabolic panel (04/28/2025 10:31 AM EDT) Sodium 140 133 - 145 mmol/L LAB CHEMISTRY METHOD 04/28/2025 11:24 AM [facility] Potassium 4.7 3.5 - 5.5 mmol/L LAB CHEMISTRY METHOD 04/28/2025 11:24 AM [facility] Chloride 110 96 - 110 mmol/L LAB CHEMISTRY METHOD 04/28/2025 11:24 AM [facility] CO2 21 21 - 32 mmol/L LAB CHEMISTRY METHOD 04/28/2025 11:24 AM [facility] Anion Gap 9 3 - 11 LAB CHEMISTRY METHOD 04/28/2025 11:24 AM [facility] Glucose 90 70 - 100 mg/dL LAB CHEMISTRY METHOD 04/28/2025 11:24 AM [facility] BUN 82(H) 5 - 25 mg/dL LAB CHEMISTRY METHOD 04/28/2025 11:24 AM [facility] Creatinine 4.17(H) 0.50 - 1.10 mg/dL LAB CHEMISTRY METHOD 04/28/2025 11:24 AM [facility] eGFR 11(L) >=60 mL/min/1. 73m2 LAB CHEMISTRY METHOD 04/28/2025 11:24 AM [facility] Comment:Calculation based on the Chronic Kidney Disease Epidemiology Collaboration (CKD-EPI) equation refit without adjustment for race. BUN/Creatinine Ratio 19.7 LAB CHEMISTRY METHOD 04/28/2025 11:24 AM [facility] Calcium 8.3(L) 8.5 - 10.5 mg/dL LAB CHEMISTRY METHOD 04/28/2025 11:24 AM [facility] Blood Venous blood specimen / Unknown Venipuncture / Unknown 04/28/2025 10:31 AM EDT 04/28/2025 10:56 AM EDT Connor Pace MD LAB BLOOD ORDERABLES Final Result [facility] [address] [place] [address], * Echo Outside Images/Report (04/21/2025 9:30 AM EDT) Anatomical Region Laterality Modality Ultrasound Historical Provider CV ECHO PROCEDURES Final Result * GRZEGORZ SCREENING DIGITAL (12/23/2018 9:09 AM EST) Anatomical Region Laterality Modality Mammography 12/23/2018 8:05 AM EST Narrative 12/23/2018 9:[address] [facility] Diagnostic Imaging Department [address] [place], [place] [address] Patient: TANYAANNABELLE D.O.B./Age/Sex: 1950 - 68 - F Unit#: [id number] [facility] Mnemonic/Ordering Site: D[facility]SC/SP[facility] Ordering Physician: [...] MLO projection. Computer aided detection with the [employer] 7.2-H was employed. TISSUE DENSITY: b. There [...] Routine screening mammogram BILATERAL in 1 year. 91788, 26130 3341F, 7025F Dictating Physician: SYDNEY COTTON MD Electronically Signed by: SYDNEY COTTON MD Dic Date/Time: 12/23/18908 Sign date/Time: 12/23/18908 Procedure Note Sydney Cotton MD - 10/23/2022 [facility] Diagnostic Imaging Department [address] [place] [id number] Patient: TANYAANNABELLE D.O.B./Age/Sex: 1950 - 68 - F Unit#: [id number] Location/Status: [facility] Mnemonic/Ordering Site: [facility] Ordering Physician: ROC FORD MD Grzegorz Screening Digital - 12/23/18 - [id number] EXAM: [facility] Screening Digital EXAM DATE AND TIME: 12/23/2018 8:47 AM HISTORY: Screening. COMPARISON: 05/29/17, 09/13/15, 07/13/10 TECHNIQUE: CC and MLO views of both breasts were obtained using fullfield digital mammography. Bilateral digital breast tomosynthesis was performedin the MLO projection. Computer aided detection with the [employer].2-Veotagas employed. TISSUE DENSITY: b. There are scattered [...] Routine screening mammogram BILATERAL in 1 year. 92145, 63089 3341F, 7025F Dictating Physician: SYDNEY COTTON MD Electronically Signed by: SYDNEY COTTON MD Dic Date/Time: 12/23/18908 Sign date/Time: 12/23/18908 Roc Ford MD IMG BI PROCEDURES Final Resul t from Last 3 Months or Most Recently Relevant to Health Maintenance Insurance * Guarantor: Annabelle Coleman Account Type Relation to Patient Date of Phone Billing Address Personal/Family Self 1950 [phone] (Work) [address] [facility] [address] [place] [address] MEDICARE [facility] Advance Directives * Full Code - Default [...] currently active code status orders. Care Teams Artificial Breeding Technician Relationship Specialty Start Date End Date Barbara Winchester MD [address] [place] [address] PCP - General Internal Medicine 04/28/25
--- OUTSIDE RECORDS SUMMARY | 2025-06-02 11:54 | XMS_ITS | Clinical Summary ---
Author Organization [facility] Address [address] [facility] [address] [place] [address] Phone Care Team Providers Care Dermatology Nurse Practitioner Name Role Phone Barbara Winchester MD Primary [...] tablet 3 10/07/2022 Active ergocalciferol 1.25 MG (87798 UT) capsule Take 50,000 Units by mouth [...] average glucose, using the formula of the B4T-Iwwitls Average Glucose study (ADAG), Diabetes Care, Vol.31,#8, Jun. 2007 05/15/2020 8:26 AM EDT us Alma Delia Ford MD LAB BLOOD ORDERABLES Final Resu lt [place] from Last 3 Months or Most Recently Relevant to Health Maintenance Insurance [facility] Medicare [facility] Medicare Care Teams Dermatology Nurse Practitioner Relationship Specialty Start Date End Date Barbara Winchester MD PCP - General Dental Fishing Manager 04/01/23
--- NOTE | 2025-06-02 12:02 | HO.NEPHOV_ITS ---
Vital Signs 06/02/25 12:06 Height 5 ft 3 in Weight 175 lb 6 oz BMI 31.1 BP 138/60 Blood Pressure Location Rt brachial Position Sitting Pulse 57 Pulse Source Pulse Oximeter Pulse Oximetry (%) 96 Oxygen Delivery Method Room Air Intake Visit Reasons: 1mnth procrit w labs-Conf Flagsetter Required: No Accompanied by: Self / Same As Patient Allergies liraglutide (Victoza) Allergy (Unknown, Verified 06/02/25 12:05) Unknown lisinopril (LISINOPRIL) Allergy (Unknown, Verified 06/02/25 12:05) cough adhisive Allergy (Unknown, Uncoded 10/20/23 14:28) Unknown HPI Comments Details: Annabelle was seen in the office in follow-up for chronic kidney disease, proteinuria and hypertension. Her BP is better with weight loss with diuretics . She has history of coronary disease, CABG and AVR. She has diabetic retinopathy. She denies any chest pain, shortness of breath, proximal nocturnal dyspnea, orthopnea, nausea, vomiting, diarrhea or urinary symptoms. She was on Trulicity in the past but stopped due to side effects. Her recent serum creatinine has been around 4. Her losartan has been put on hold . She continues to have proteinuria over 3 g. Her SOBE is better now. She denies PND or worsening edema. She had FOB + and is awaiting colonoscopy. Her BP has been fluctuant with orthostasis. She had AVF( April 282024). She has nausea intermittently and feels tired [facility] Medical History (Updated 06/02/25 @ 12:19 by Romeo Ni MD) Secondary hyperparathyroidism (of renal origin) Diabetic retinopathy Essential (primary) hypertension Aortic valve stenosis Chronic diastolic CHF (congestive heart failure) Type 2 diabetes mellitus CKD (chronic kidney disease) stage 3, GFR 30-59 ml/min HLD (hyperlipidemia) Surgical History Aortic valve replaced S/P quadruple vessel bypass Family History Father Diabetes Social History Alcohol intake: never Patient Tobacco Use Status: Never used Tobacco Review of Systems Const All systems reviewed & are unremarkable except as noted in HPI and below Physical Exam Vital Signs: Last Vital Signs Pulse 57 06/02/25 12:06 BP 138/60 06/02/25 12:06 Pulse Ox 96 06/02/25 12:06 Oxygen Delivery Method Room Air 06/02/25 12:06 BMI result Body Mass Index 31.1 Const General: comfortable and no acute distress Orientation/consciousness: patient oriented x3 HEENT Head: Yes normocephalic Mouth: Normal oral and palatal mucosa present Eyes EOM: EOMs intact bilaterally Neck Neck: Yes supple Resp Auscultation: clear to auscultation bilaterally Cardio Jugular venous distension: no JVD Rate: regular rate GI Palpation (GI): Soft to palpation Auscultation: normal bowel sounds General: Yes no CVA tenderness Back/Spine/Pelvis Back: no CVA tenderness Skin General skin exam: no rashes or lesions noted Neuro General: patient oriented x3 and moves all extremities Extrem General: Yes no pedal edema Office Meds epoetin kristopher-epbx 10,000 unit/mL injection solution Performing Provider: Romeo Ni MD Performing Location: [facility] Administered by: Romeo Ni MD on 06/02/25 12:23 Dose Route Admin Location Dispensed Lot Number Expiration Date [facility] Private Equity Analyst 20,000 unit subcut RUE 2 mL [id number] 12/04/26 1651-2825-70 [facility] Total Dispensed Waste 2 mL 0 % Results Reviewed Nephrology Results: Hgb, (12.0-16.0) 8.1 g/dl L 05/30/25 WBC, (4.8-10.8) 7.5 X10*3/uL 05/30/25 Plt Count, (160-400) 256 X10*3/uL Δ 05/30/25 Sodium, (135-145) 142 mmol/L 05/30/25 Potassium, (3.3-5.1) 4.9 mmol/L 05/30/25 Chloride, (96-108) 108 mmol/L 05/30/25 Carbon Dioxide, (22-29) 21 mmol/L L 05/30/25 BUN, (9-16) 100 mg/dL H 05/30/25 Creatinine, (0.5-1.4) 4.61 mg/dL H* 05/30/25 Calcium, (8.4-10.2) 8.5 mg/dL 05/30/25 PTH Intact, (8.7-77.1) 348.3 pg/mL H 03/01/25 Assessment & Plan Assessment & Plan (1) Essential (primary) hypertension: Code(s): I10 - Essential (primary) hypertension Category: Medical (2) Secondary hyperparathyroidism (of renal origin): Code(s): N25.81 - Secondary hyperparathyroidism of renal origin Category: Medical (3) Anemia in chronic kidney disease: Code(s): N18.9 - Chronic kidney disease, unspecified; D63.1 - Anemia in chronic kidney disease Category: Medical Qualifiers: Chronic kidney disease stage: stage 3 (moderate) Chronic kidney disease stage 3 subtype: stage 3b (GFR 30-44) Qualified Code(s): N18.32 - Chronic kidney disease, stage 3b; D63.1 - Anemia in chronic kidney disease (4) CKD (chronic kidney disease) stage 5, GFR less than 15 ml/min: Code(s): N18.5 - Chronic kidney disease, stage 5 Category: Medical Plan 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 She has history of MGUS as well. She is hypertensive and has history of high MITCHELL. She needs a sleep study. She F/U with Dr Shaquille Davila . She could continue current dose of Lasix. She had declined renal biopsy in the past. Her losartan is currently on hold . I gave her 39432 U Procrit today. She should maintain good hydration. She had stopped NaHCO3. I discussed about declining renal functions and potential need for renal replacement in the future. She had dialysis education. She had AVF by Dr Ward for AVF. She can continue calcitriol 0.2 mcg 3 times a week. Given orthostasis , I referred her for transplant evaluation. I did not make any other medication changes today. Follow-up blood work ordered. Orders: Orders AMB Epoetin Injection Practice Supplied Today D63.1 - Anemia in chronic kidney disease, N18.32 - Chronic kidney disease, stage 3b Complete Blood Count Auto Diff 1 Month D63.1 - Anemia in chronic kidney disease, N18.32 - Chronic kidney disease, stage 3b, N18.5 - Chronic kidney disease, stage 5 Blood Urea Nitrogen 1 Month D63.1 - Anemia in chronic kidney disease, N18.32 - Chronic kidney disease, stage 3b, N18.5 - Chronic kidney disease, stage 5 Creatinine 1 Month D63.1 - Anemia in chronic kidney disease, N18.32 - Chronic kidney disease, stage 3b, N18.5 - Chronic kidney disease, stage 5 Electrolytes 1 Month D63.1 - Anemia in chronic kidney disease, N18.32 - Chronic kidney disease, stage 3b, N18.5 - Chronic kidney disease, stage 5 Referrals Transplant Surgery Referral N18.5 - Chronic kidney disease, stage 5 Coding Level of Care Code Est Pt Level 4 (29859) Diagnoses Essential (primary) hypertension I10 Secondary hyperparathyroidism (of renal origin) N25.81 Anemia in stage 3b chronic kidney disease N18.32; D63.1 Chronic kidney disease stage: stage 3 (moderate) Chronic kidney disease stage 3 subtype: stage 3b (GFR 30-44) CKD (chronic kidney disease) stage 5, GFR less than 15 ml/min N18.5
[2025-06-02 12:06] VITALS: BP 138/60; PULSE 57; O2SAT 96; BMI 31.1
== END 2025-06-02 12:32 | disposition home or self-care (01) ==
LOC: HO.HKAS 11:04
PROVIDERS: PCP Internal Medicine; Visit Provider Internal Medicine Nephrology
DX: I12.0 Hypertensive chronic kidney disease with stage 5 chronic kidney disease or end stage renal disease (principal); N25.81 Secondary hyperparathyroidism of renal origin; N18.32 Chronic kidney disease, stage 3b; D63.1 Anemia in chronic kidney disease; N18.5 Chronic kidney disease, stage 5
CPT/HCPCS: 99214

== ENCOUNTER → 2025-06-02 11:04 | Outpatient (BNVA) | payer MEDICARE, OTHER, SELFPAY | PROVIDERS: PCP Internal Medicine; Visit Provider Internal Medicine Nephrology | DX: I13.0 Hypertensive heart and chronic kidney disease with heart failure and stage 1 through stage 4 chronic kidney disease, or unspecified chronic kidney disease (principal); D63.1 Anemia in chronic kidney disease; N18.5 Chronic kidney disease, stage 5; N18.32 Chronic kidney disease, stage 3b; I50.30 Unspecified diastolic (congestive) heart failure; E11.21 Type 2 diabetes mellitus with diabetic nephropathy; N25.81 Secondary hyperparathyroidism of renal origin; E11.22 Type 2 diabetes mellitus with diabetic chronic kidney disease; Z79.899 Other long term (current) drug therapy | CPT/HCPCS: 96372; 99212; Q5106 ==

== ENCOUNTER 2025-06-29 09:36 | Outpatient (REF) | payer MEDICARE, OTHER, SELFPAY ==
--- OUTSIDE RECORDS SUMMARY | 2025-06-29 10:15 | XMS_ITS | Clinical Summary ---
Author Organization [facility] Address [address] [facility] [address] [place] [address] Phone Care Team Providers Care Corporate Ethics Officer Name Role Phone Barbara Winchester MD Primary [...] tablet 3 10/07/2022 Active ergocalciferol 1.25 MG (57749 UT) capsule Take 50,000 Units by mouth [...] average glucose, using the formula of the T0K-Ilgafbk Average Glucose study (ADAG), Diabetes Care, Vol.31,#8, Jun. 2007 05/15/2020 8:26 AM EDT us [place] Delia Ford MD LAB BLOOD ORDERABLES Final Resu lt [place] from Last 3 Months or Most Recently Relevant to Health Maintenance Insurance [facility] Medicare [facility] Medicare Care Teams Corporate Ethics Officer Relationship Specialty Start Date End Date Barbara Winchester MD PCP - General Dental Dry Wall Finisher 04/01/23
--- OUTSIDE RECORDS SUMMARY | 2025-06-29 10:15 | XMS_ITS | Clinical Summary ---
Author Organization [facility] Address [address] [place] [address] Phone Care Team Providers Care Lace Stripper Name Role Phone Barbara Winchester MD Primary [...] 2 diabetes mellitus wit h renal complication (CMS/HCC V24, CMS/HCC V28) 04/28/2025 CAD (coronary artery disease) 04/28/2025 Hx of CABG 04/28/2025 CKD (chronic kidney disease) stage 5, GFR less than 15 ml/min (CMS/HCC V24, CMS/HCC V28) 04/05/2025 Resolved Problems Problem Noted Date Diagnosed Date Resolved Date Diabetes mellitus type 1 (CM S/HCC V24, CMS/HCC V28) 04/28/2025 04/28/2025 Encounters Date Type Department Care Team Description 06/08/2025 9:45 AM EDT Office Visit General Surgery [address] [phone] Connor Pace MD CKD (chronic kidney disease) stage 5, GFR less than 15 ml/min (CMS/HCC V24, CMS/HCC V28) (Primary Dx) 05/05/2025 1:15 PM EDT Office Visit [address] [phone] Connor Pace MD CKD (chronic kidney disease) stage 5, GFR less than 15 ml/min (CMS/HCC V24, CMS/HCC V28) (Primary Dx) 04/28/2025 2:54 PM EDT Anesthesia Event [facility] Main OR [address] [place] [phone] Leandro Flores DO Kriz, Petra, MD 04/28/2025 12:00 PM EDT - 04/28/2025 1:45 PM EDT Surgery [facility] Main OR [address] [place] [phone] Connor Pace MD CREATION AV FISTULA LEFT UPPER EXTREMITY [85915 (CPT )] 04/28/2025 10:25 AM EDT - 04/28/2025 5:29 PM EDT Hospital Encounter [facility] OR [address] [place] [phone] Connor Pace MD Discharge Disposition: Home or Self Care 04/05/2025 9:15 AM EDT Consult General Surgery - [place] [address] [facility] [address] [place] [phone] Connor Pace MD Chronic kidney disease, stage 4 (severe) (CMS/[facility] V24, CMS/[facility] V28) from Last 3 Months Surgical [...] Coronary atherosclerosis of unspecified type of vessel, [place] or graft 07/27/02 DX:Coronary atheroscle rosis of unspecified type of vessel, [place] or graft; COMMENT: Echo 09/11/02-- EF at 55% Secondary hyperparathyroidis m ([facility] V24) Fluid retention Family History Medical [...] Sign Reading Time Taken Comments Blood Pressure 111/34 06/08/2025 9:55 AM EDT Pulse 63 06/08/2025 9:55 AM EDT Temperature 36.2 C (97.1 F) 06/08/2025 9:55 AM EDT Respiratory Rate 16 04/28/2025 4:28 PM EDT Oxygen Saturation 95% 04/28/2025 4:28 PM EDT Inhaled Oxygen Concentration - - Weight 80.3 kg (177 lb) 06/08/2025 9:55 AM EDT Height 157.5 cm (5' 2 ) 06/08/2025 9:55 AM EDT Body Mass Index 32.37 06/08/2025 9:55 AM EDT Plan of Treatment Health Maintenance Due [...] 75+ series) 2025 Influenza Vaccine (#1) 2025 , 09/07/2021, 08/19/2019, Additional history exists Falls Risk [...] Procedure Name Priority Date/Time Associated Diagnosis Comments [place] ANASTOMOSIS ARTERIOVENOUS DIRECT ANY SITE OPEN (SEPARATE [...] GEMUSE QTc 487 ms GEMUSE P Wave [place] 45 degrees GEMUSE R [place] -60 degrees GEMUSE T [place] 113 degrees GEMUSE ECG Interpretation Sinus bradycardia [...] 7 PM EDT 04/28/2025 12:29 PM EDT Patricia Becerril MD ECG ORDERABLES Final Result GEMUSE * (ABNORMAL) CBC auto differential (04/28/2025 10:31 AM EDT) WBC 7.4 4.8 - 10.8 K/[facility] LAB HEMETOLOGY METHOD 04/28/2025 11:05 AM EDT [facility] RBC 3.30(L) 3.80 - 4.80 /[facility] LAB HEMETOLOGY METHOD 04/28/2025 11:05 AM EDT [facility] Hemoglobin 9.2(L) 11.5 - 16.0 g/dL LAB HEMETOLOGY METHOD 04/28/2025 11:05 AM [facility] Hematocrit 29.8(L) 35.0 - 47.0 % LAB HEMETOLOGY METHOD 04/28/2025 11:05 AM [facility] MCV 91.7 79.0 - 98.0 FL LAB HEMETOLOGY METHOD 04/28/2025 11:05 AM [facility] MCH 28.3 27.0 - 32.0 pcg LAB HEMETOLOGY METHOD 04/28/2025 11:05 AM [facility] MCHC 30.9(L) 32.0 - 37.0 g/dL LAB HEMETOLOGY METHOD 04/28/2025 11:05 AM [facility] RDW 15.0 11.0 - 15.0 % LAB HEMETOLOGY METHOD 04/28/2025 11:05 AM [facility] Platelets 221 130 - 400 K/mcL LAB HEMETOLOGY METHOD 04/28/2025 11:05 AM [facility] MPV 12.3(H) 7.0 - 11.0 FL LAB HEMETOLOGY METHOD 04/28/2025 11:05 AM [facility] NRBC 0.0 <1.0 % LAB HEMETOLOGY METHOD 04/28/2025 11:05 AM [facility] NRBC Absolute 0.00 <0.10 K/mcL LAB HEMETOLOGY METHOD 04/28/2025 11:05 AM [facility] Neutrophils Relative 69.2 % LAB HEMETOLOGY METHOD 04/28/2025 11:05 AM [facility] Lymphocytes Relative 19.6 % LAB HEMETOLOGY METHOD 04/28/2025 11:05 AM [facility] Monocytes Relative 9.1 % LAB HEMETOLOGY METHOD 04/28/2025 11:05 AM [facility] Eosinophils Relative 1.5 % LAB HEMETOLOGY METHOD 04/28/2025 11:05 AM [facility] Basophils Relative 0.3 % LAB HEMETOLOGY METHOD 04/28/2025 11:05 AM [facility] Immature Granulocytes Relative 0.3 % LAB HEMETOLOGY METHOD 04/28/2025 11:05 AM [facility] Neutrophils Absolute 5.13 1.50 - 7.00 K/mcL LAB HEMETOLOGY METHOD 04/28/2025 11:05 AM [facility] Lymphocytes Absolute 1.45 1.00 - 5.00 K/mcL LAB HEMETOLOGY METHOD 04/28/2025 11:05 AM [facility] Monocytes Absolute 0.67 0.20 - 1.00 K/mcL LAB HEMETOLOGY METHOD 04/28/2025 11:05 AM [facility] Eosinophils Absolute 0.11 0.00 - 0.50 K/mcL LAB HEMETOLOGY METHOD 04/28/2025 11:05 AM [facility] Basophils Absolute 0.02 0.00 - 0.20 K/mcL LAB HEMETOLOGY METHOD 04/28/2025 11:05 AM [facility] Immature Granulocytes Absolute 0.02 0.00 - 0.03 K/mcL LAB HEMETOLOGY METHOD 04/28/2025 11:05 AM [facility] Blood Venous blood specimen / Unknown Venipuncture / Unknown 04/28/2025 10:31 AM EDT 04/28/2025 10:57 AM EDT us Connor Pace MD LAB BLOOD ORDERABLES Final Result [facility] [address] [place] [address], * (ABNORMAL) Basic metabolic panel (04/28/2025 10:31 AM EDT) Sodium 140 133 - 145 mmol/L LAB CHEMISTRY METHOD 04/28/2025 11:24 AM [facility] Potassium 4.7 3.5 - 5.5 mmol/L LAB CHEMISTRY METHOD 04/28/2025 11:24 AM [facility] Chloride 110 96 - 110 mmol/L LAB CHEMISTRY METHOD 04/28/2025 11:24 AM [facility] CO2 21 21 - 32 mmol/L LAB CHEMISTRY METHOD 04/28/2025 11:24 AM [facility] Anion Gap 9 3 - 11 LAB CHEMISTRY METHOD 04/28/2025 11:24 AM [facility] Glucose 90 70 - 100 mg/dL LAB CHEMISTRY METHOD 04/28/2025 11:24 AM [facility] BUN 82(H) 5 - 25 mg/dL LAB CHEMISTRY METHOD 04/28/2025 11:24 AM [facility] Creatinine 4.17(H) 0.50 - 1.10 mg/dL LAB CHEMISTRY METHOD 04/28/2025 11:24 AM [facility] eGFR 11(L) >=60 mL/min/1. 73m2 LAB CHEMISTRY METHOD 04/28/2025 11:24 AM [facility] Comment:Calculation based on the Chronic Kidney Disease Epidemiology Collaboration (CKD-EPI) equation refit without adjustment for race. BUN/Creatinine Ratio 19.7 LAB CHEMISTRY METHOD 04/28/2025 11:24 AM [facility] Calcium 8.3(L) 8.5 - 10.5 mg/dL LAB CHEMISTRY METHOD 04/28/2025 11:24 AM [facility] Blood Venous blood specimen / Unknown Venipuncture / Unknown 04/28/2025 10:31 AM EDT 04/28/2025 10:56 AM EDT Connor Pace MD LAB BLOOD ORDERABLES Final Result [facility] [address] [place] [address], [place] [phone] * Echo Outside Images/Report (04/21/2025 9:30 AM EDT) Anatomical Region Laterality Modality Ultrasound Historical Provider CV ECHO PROCEDURES Final Result * GRZEGORZ SCREENING DIGITAL (12/23/2018 9:09 AM EST) Anatomical Region Laterality Modality Mammography 12/23/2018 8:05 AM EST Narrative 12/23/2018 9:09 AM EST [facility] Diagnostic Imaging Department [address] [place] [address] Patient: TANYAANNABELLE D.O.B./Age/Sex: 1950 - 68 - F Unit#: [id number] Location/Status: SPDIMAM/REG CLI Mnemonic/Ordering Site: DIGSC/SPMAM Ordering Physician: ROC FORD MD Grzegorz Screening Digital - 12/23/18845 EXAM: Grzegorz Screening Digital EXAM DATE AND TIME: 12/23/2018 8:47 AM HISTORY: Screening. COMPARISON: 05/29/17, 09/13/15, 07/13/10 TECHNIQUE: CC and MLO views of both breasts were obtained using full field digital mammography. Bilateral digital breast tomosynthesis was performed in the MLO projection. Computer aided detection with the [employer] 7.2-H was employed. TISSUE DENSITY: b. There [...] Routine screening mammogram BILATERAL in 1 year. 53032, 00154 3341F, 7098F Dictating Physician: SYDNEY COTTON MD Electronically Signed by: SYDNEY COTTON MD Dic Date/Time: 12/23/18908 Sign date/Time: 12/23/18908 Procedure Note Sydney Cotton MD - 10/23/2022 [facility] Diagnostic Imaging Department [address] [place] [address] Patient: ANNABELLE COLEMAN./Age/Sex: 1950 - 68 - F Unit#: [id number] [facility] Mnemonic/Ordering Site: [facility] Ordering Physician: ROC FORD MD Grzegorz Screening Digital - 12/23/18 - 0846 EXAM: [facility] Screening Digital EXAM DATE AND TIME: 12/23/2018 8:47 AM HISTORY: Screening. COMPARISON: 05/29/17, 09/13/15, 07/13/10 TECHNIQUE: CC and MLO views of both breasts were obtained using fullfield digital mammography. Bilateral digital breast tomosynthesis was performedin the MLO projection. Computer aided detection with the to-BBB.2-Sxbbmas employed. TISSUE DENSITY: b. There are scattered [...] Routine screening mammogram BILATERAL in 1 year. 35288, 65700 3341F, 7025F Dictating Physician: SYDNEY COTTON MD Electronically Signed by: SYDNEY COTTON MD Dic Date/Time: 12/23/18908 Sign date/Time: 12/23/18908 Roc Ford MD IMG BI PROCEDURES Final Resul t from Last 3 Months or Most Recently Relevant to Health Maintenance Insurance * Guarantor: Annabelle Coleman Account Type Relation to Patient Date of Phone Billing Address Personal/Family Self 1950 [phone] (Work) [address] [facility] [address] [place] [address] MEDICARE [facility] Advance Directives * Full Code - Default [...] currently active code status orders. Care Teams Lace Stripper Relationship Specialty Start Date End Date Barbara Winchester MD [address] [place] [address] PCP - General Internal Medicine 04/28/25
[2025-06-29 13:50] LABS: MANUAL DIFF FLAG NO
[2025-06-29 13:58] LABS: Hematocrit 24.1 % (37.0-47.0); Hemoglobin 7.5 g/dl (12.0-16.0); Imm Gran Abs Auto 0.02 X10*3/uL (0.00-0.03); Imm Gran Pct Auto 0.3 % (0.0-0.4); Lymphocytes Absolute Auto 1.4 X10*3/uL (1.2-4.9); Mean Corpuscular HGB Conc 31.1 g/dl (31.0-35.0); Mean Corpuscular Hemoglobin 27.4 pg (27.0-33.0); Mean Corpuscular Volume 88.0 fL (80.0-98.0); NRBC Abs Auto 0.000 X10*3/uL (0.0-0.012); NRBC Pct Auto 0.0 /100WBC (0.0-0.2); Platelet Count 245 X10*3/uL (160-400); Red Blood Count 2.74 X10*6/uL (4.20-5.50); White Blood Count 6.9 X10*3/uL (4.8-10.8)
[2025-06-29 14:46] LABS: Anion Gap 16 (12-20); Blood Urea Nitrogen 78 mg/dL (9-16); Carbon Dioxide 18 mmol/L (22-29); Chloride 108 mmol/L (96-108); Estimated Glomerular Filt Rate 9; Potassium 4.4 mmol/L (3.3-5.1); Sodium 138 mmol/L (135-145)
== END 2025-06-29 09:37 | disposition home or self-care (01) ==
LOC: HO.HMGCLDS 09:36
PROVIDERS: PCP Internal Medicine; Visit Provider Internal Medicine Nephrology
DX: N18.5 Chronic kidney disease, stage 5 (principal); D63.1 Anemia in chronic kidney disease
CPT/HCPCS: 36415; 80051; 82565; 84520; 85025

== ENCOUNTER → 2025-07-04 23:59 | Outpatient (BNV) | payer MEDICARE, OTHER, SELFPAY | PROVIDERS: PCP Internal Medicine; Visit Provider Internal Medicine Nephrology | DX: N18.6 End stage renal disease (principal) | CPT/HCPCS: 90961 ==

== ENCOUNTER 2025-07-05 11:22 | Outpatient (AMB) | payer MEDICARE, OTHER, SELFPAY ==
--- NOTE | 2025-07-05 11:29 | HO.NEPHOV ---
Vital Signs 07/05/25 11:30 Height 5 ft 3 in Weight 178 lb BMI 31.5 BP 124/50 L Blood Pressure Location Rt brachial Position Sitting Pulse 59 Pulse Source Pulse Oximeter Pulse Oximetry (%) 94 Oxygen Delivery Method Room Air Intake Visit Reasons: 1mnth procrit w labs Inlayer Silver Required: No Accompanied by: Self / Same As Patient Allergies liraglutide (Victoza) Allergy (Unknown, Verified 07/05/25 11:29) Unknown lisinopril (LISINOPRIL) Allergy (Unknown, Verified 07/05/25 11:29) cough adhisive Allergy (Unknown, Uncoded 10/20/23 14:28) Unknown HPI Comments Details: Annabelle was seen in the office in follow-up for chronic kidney disease, proteinuria and hypertension. Her BP is better with weight loss with diuretics . She has history of coronary disease, CABG and AVR. She has diabetic retinopathy. She denies any chest pain, shortness of breath, proximal nocturnal dyspnea, orthopnea, nausea, vomiting, diarrhea or urinary symptoms. She was on Trulicity in the past but stopped due to side effects. Her recent serum creatinine has been around 4. Her losartan has been put on hold . She continues to have proteinuria over 3 g. Her edema is worse. She had FOB + and is awaiting colonoscopy. She had AVF( April 282024) and is mature. She feels tired with poor appetite [facility] Medical History (Updated 06/02/25 @ 12:19 by Romeo Ni MD) Secondary hyperparathyroidism (of renal origin) Diabetic retinopathy Essential (primary) hypertension Aortic valve stenosis Chronic diastolic CHF (congestive heart failure) Type 2 diabetes mellitus CKD (chronic kidney disease) stage 3, GFR 30-59 ml/min HLD (hyperlipidemia) Surgical History Aortic valve replaced S/P quadruple vessel bypass Family History Father Diabetes Social History Alcohol intake: never Patient Tobacco Use Status: Never used Tobacco Review of Systems Const All systems reviewed & are unremarkable except as noted in HPI and below Physical Exam Vital Signs: Last Vital Signs Pulse 59 07/05/25 11:30 BP 124/50 L 07/05/25 11:30 Pulse Ox 94 07/05/25 11:30 Oxygen Delivery Method Room Air 07/05/25 11:30 BMI result Body Mass Index 31.5 Const General: comfortable and no acute distress Orientation/consciousness: patient oriented x3 HEENT Head: Yes normocephalic Mouth: Normal oral and palatal mucosa present Eyes EOM: EOMs intact bilaterally Neck Neck: Yes supple Resp Auscultation: clear to auscultation bilaterally Cardio Jugular venous distension: no JVD Rate: regular rate GI Palpation (GI): Soft to palpation Auscultation: normal bowel sounds General: Yes no CVA tenderness Back/Spine/Pelvis Back: no CVA tenderness Skin General skin exam: no rashes or lesions noted Neuro General: patient oriented x3 and moves all extremities Extrem General: Yes no pedal edema Office Meds epoetin kristopher-epbx 10,000 unit/mL injection solution Performing Provider: Romeo Ni MD Performing Location: [facility] Administered by: Rmoeo Ni MD on 07/05/25 11:43 Dose Route Admin Location Dispensed Lot Number Expiration Date [facility] Transportation Design Engineer 40,000 unit subcut LUE 4 mL [id number] 12/04/26 8523-2729-68 [employer] Total Dispensed Waste 4 mL 0 % Results Reviewed Nephrology Results: Hgb, (12.0-16.0) 7.5 g/dl L 06/29/25 WBC, (4.8-10.8) 6.9 X10*3/uL 06/29/25 Plt Count, (160-400) 245 X10*3/uL 06/29/25 Sodium, (135-145) 138 mmol/L 06/29/25 Potassium, (3.3-5.1) 4.4 mmol/L 06/29/25 Chloride, (96-108) 108 mmol/L 06/29/25 Carbon Dioxide, (22-29) 18 mmol/L L 06/29/25 BUN, (9-16) 78 mg/dL H 06/29/25 Creatinine, (0.5-1.4) 4.76 mg/dL H* 06/29/25 Calcium, (8.4-10.2) 8.5 mg/dL 05/30/25 PTH Intact, (8.7-77.1) 348.3 pg/mL H 03/01/25 Assessment & Plan Assessment & Plan (1) Anemia in chronic kidney disease: Code(s): N18.9 - Chronic kidney disease, unspecified; D63.1 - Anemia in chronic kidney disease Category: Medical Qualifiers: Chronic kidney disease stage: stage 3 (moderate) Chronic kidney disease stage 3 subtype: stage 3b (GFR 30-44) Qualified Code(s): N18.32 - Chronic kidney disease, stage 3b; D63.1 - Anemia in chronic kidney disease (2) CKD (chronic kidney disease) stage 5, GFR less than 15 ml/min: Code(s): N18.5 - Chronic kidney disease, stage 5 Category: Medical (3) Diabetic nephropathy: Code(s): E11.21 - Type 2 diabetes mellitus with diabetic nephropathy Category: Medical Qualifiers: Diabetes mellitus type: type 2 Qualified Code(s): E11.21 - Type 2 diabetes mellitus with diabetic nephropathy (4) Secondary hyperparathyroidism (of renal origin): Code(s): N25.81 - Secondary hyperparathyroidism of renal origin Category: Medical (5) Essential (primary) hypertension: Code(s): I10 - Essential (primary) hypertension Category: Medical Plan 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 She has history of MGUS as well. She is hypertensive and has history of high MITCHELL. She needs a sleep study. She F/U with Dr Shaquille Davila . I have asked her to take 80 mg Lasix daily . She had declined renal biopsy in the past. Her losartan is currently on hold . I gave her 74175 U Procrit today. She should maintain good hydration. I discussed about declining renal functions and potential need for renal replacement in the future. She had dialysis education. She had AVF by Dr Ward for AVF. She can continue calcitriol 0.2 mcg 3 times a week. I referred her for transplant evaluation. I did not make any other medication changes today. Follow-up blood work ordered. Orders: Orders AMB Epoetin Injection Practice Supplied Today D63.1 - Anemia in chronic kidney disease, N18.32 - Chronic kidney disease, stage 3b Complete Blood Count Auto Diff 2 Weeks D63.1 - Anemia in chronic kidney disease, E11.21 - Type 2 diabetes mellitus with diabetic nephropathy, I10 - Essential (primary) hypertension, N18.32 - Chronic kidney disease, stage 3b, N18.5 - Chronic kidney disease, stage 5, N25.81 - Secondary hyperparathyroidism of renal origin Coding Level of Care Code Est Pt Level 4 (09204) Diagnoses Anemia in stage 3b chronic kidney disease N18.32; D63.1 Chronic kidney disease stage: stage 3 (moderate) Chronic kidney disease stage 3 subtype: stage 3b (GFR 30-44) CKD (chronic kidney disease) stage 5, GFR less than 15 ml/min N18.5 Diabetic nephropathy associated with type 2 diabetes mellitus E11.21 Diabetes mellitus type: type 2 Secondary hyperparathyroidism (of renal origin) N25.81 Essential (primary) hypertension I10
[2025-07-05 11:30] VITALS: BP 124/50; PULSE 59; O2SAT 94; BMI 31.5
--- OUTSIDE RECORDS SUMMARY | 2025-07-05 13:03 | XMS_ITS | Clinical Summary ---
Author Organization [address] [facility] Address [address] [place] [address] Phone Care Team Providers Care Nondestructive Tester Name Role Phone Barbara Winchester MD Primary [...] 9:45 AM EDT Office Visit General Surgery [address] [phone] Connor Pace MD CKD (chronic kidney disease) stage 5, GFR less than 15 ml/min (CMS/HCC V24, CMS/HCC V28) (Primary Dx) 05/05/2025 1:15 PM EDT Office Visit [address] [phone] Connor Pace MD CKD (chronic kidney disease) stage 5, GFR less than 15 ml/min (CMS/HCC V24, CMS/HCC V28) (Primary Dx) 04/28/2025 2:54 PM EDT Anesthesia Event [facility] OR [address] [place] [phone] Leandro Flores DO Kriz, Petra, MD 04/28/2025 12:00 PM EDT - 04/28/2025 1:[address] [facility] OR [address] [place] [phone] Connor Pace MD CREATION AV FISTULA LEFT UPPER EXTREMITY [73706 (CPT )] 04/28/2025 10:25 AM EDT - 04/28/2025 5:29 PM EDT Hospital Encounter [facility] OR [address] [place] [phone] Connor Pace MD Discharge Disposition: Home or Self Care 04/05/2025 9:15 AM EDT Consult General Surgery - [place] [address] [facility] [address] [place] [phone] Connor Pace MD Chronic kidney disease, stage 4 (severe) (CMS/[facility] V24, CMS/[facility]ER[facility] V28) from Last 3 Months [...] Coronary atherosclerosis of unspecified type of vessel, wainwright or graft 07/27/02 DX:Coronary atheroscle rosis of unspecified type of vessel, wainwright or graft; COMMENT: Echo 09/11/02-- EF at 55% Secondary hyperparathyroidis m ([facility] V24) Fluid retention Family History [...] of 3 - Risk 3-dose series) 2010 Depression Screening 11/03/2024 Cholesterol Screening (Lipid Panel) 03/31/2025 Diabetes: Blood Sugar Control Test (HGBA1C) 03/31/2025 05/15/2020 Hepatitis C Screening 03/31/2025 Medicare Annual Wellness Visit 03/31/2025 Osteoporosis Screening (Bone Density Screening) 03/31/2025 Social Influencers of Health Screening 03/31/2025 RSV Immunization Adult Patients (1 - 1-dose 75+ series) 2025 COVID-19 Vaccine ( season) 2025 09/18/2022, 09/23/2021, 02/11/2021, Additional history exists Influenza Vaccine (#1) 2025 , 09/07/2021, 08/19/2019, [...] Procedure Name Priority Date/Time Associated Diagnosis Comments [place] ANASTOMOSIS ARTERIOVENOUS DIRECT ANY SITE OPEN (SEPARATE [...] GEMUSE QTc 487 ms GEMUSE P Wave [place] 45 degrees GEMUSE R [place] -60 degrees GEMUSE T [place] 113 degrees GEMUSE ECG Interpretation Sinus bradycardia [...] AM EDT) WBC 7.4 4.8 - 10.8 K/[facility] LAB HEMETOLOGY METHOD 04/28/2025 11:05 AM EDT [facility] RBC 3.30(L) 3.80 - 4.80 /[facility] LAB HEMETOLOGY METHOD 04/28/2025 11:05 AM EDT [facility] Hemoglobin 9.2(L) 11.5 - 16.0 g/dL LAB HEMETOLOGY METHOD 04/28/2025 11:05 AM [facility] Hematocrit 29.8(L) 35.0 - 47.0 % LAB HEMETOLOGY METHOD 04/28/2025 11:05 AM [facility] MCV 91.7 79.0 - 98.0 FL LAB HEMETOLOGY METHOD 04/28/2025 11:05 AM [facility] MCH 28.3 27.0 - 32.0 pcg LAB HEMETOLOGY METHOD 04/28/2025 11:05 AM [facility] MCHC 30.9(L) 32.0 - 37.0 g/dL LAB HEMETOLOGY METHOD 04/28/2025 11:05 AM [facility] RDW 15.0 11.0 - 15.0 % LAB HEMETOLOGY METHOD 04/28/2025 11:05 AM [facility] Platelets 221 130 - 400 K/mcL LAB HEMETOLOGY METHOD 04/28/2025 11:05 AM [facility] MPV 12.3(H) 7.0 - 11.0 FL LAB HEMETOLOGY METHOD 04/28/2025 11:05 AM [facility] NRBC 0.0 <1.0 % LAB HEMETOLOGY METHOD 04/28/2025 11:05 AM [facility] NRBC Absolute 0.00 <0.10 K/mcL LAB HEMETOLOGY METHOD 04/28/2025 11:05 AM [facility] Neutrophils Relative 69.2 % LAB HEMETOLOGY METHOD 04/28/2025 11:05 AM [facility] Lymphocytes Relative 19.6 % LAB HEMETOLOGY METHOD 04/28/2025 11:05 AM [facility] Monocytes Relative 9.1 % LAB HEMETOLOGY METHOD 04/28/2025 11:05 AM [facility] Eosinophils Relative 1.5 % LAB HEMETOLOGY METHOD 04/28/2025 11:05 AM [facility] Basophils Relative 0.3 % LAB HEMETOLOGY METHOD 04/28/2025 11:05 AM [facility] Immature Granulocytes Relative 0.3 % LAB HEMETOLOGY METHOD 04/28/2025 11:05 AM [facility] Neutrophils Absolute 5.13 1.50 - 7.00 K/mcL LAB HEMETOLOGY METHOD 04/28/2025 11:05 AM [facility] Lymphocytes Absolute 1.45 1.00 - 5.00 K/mcL LAB HEMETOLOGY METHOD 04/28/2025 11:05 AM [facility] Monocytes Absolute 0.67 0.20 - 1.00 K/mcL LAB HEMETOLOGY METHOD 04/28/2025 11:05 AM [facility] Eosinophils Absolute 0.11 0.00 - 0.50 K/mcL LAB HEMETOLOGY METHOD 04/28/2025 11:05 AM [facility] Basophils Absolute 0.02 0.00 - 0.20 K/mcL LAB HEMETOLOGY METHOD 04/28/2025 11:05 AM [facility] Immature Granulocytes Absolute 0.02 0.00 - 0.03 K/mcL LAB HEMETOLOGY METHOD 04/28/2025 11:05 AM [facility] Blood Venous blood specimen / Unknown Venipuncture / Unknown 04/28/2025 10:31 AM EDT 04/28/2025 10:57 AM EDT us Connor Pace MD LAB BLOOD ORDERABLES Final Result [facility] [address] [place] [address], * (ABNORMAL) Basic metabolic panel (04/28/2025 10:31 AM EDT) Sodium 140 133 - 145 mmol/L LAB CHEMISTRY METHOD 04/28/2025 11:24 AM [facility] Potassium 4.7 3.5 - 5.5 mmol/L LAB CHEMISTRY METHOD 04/28/2025 11:24 AM [facility] Chloride 110 96 - 110 mmol/L LAB CHEMISTRY METHOD 04/28/2025 11:24 AM [facility] CO2 21 21 - 32 mmol/L LAB CHEMISTRY METHOD 04/28/2025 11:24 AM [facility] Anion Gap 9 3 - 11 LAB CHEMISTRY METHOD 04/28/2025 11:24 AM [facility] Glucose 90 70 - 100 mg/dL LAB CHEMISTRY METHOD 04/28/2025 11:24 AM [facility] BUN 82(H) 5 - 25 mg/dL LAB CHEMISTRY METHOD 04/28/2025 11:24 AM [facility] Creatinine 4.17(H) 0.50 - 1.10 mg/dL LAB CHEMISTRY METHOD 04/28/2025 11:24 AM [facility] eGFR 11(L) >=60 mL/min/1. 73m2 LAB CHEMISTRY METHOD 04/28/2025 11:24 AM [facility] Comment:Calculation based on the Chronic Kidney Disease Epidemiology Collaboration (CKD-EPI) equation refit without adjustment for race. BUN/Creatinine Ratio 19.7 LAB CHEMISTRY METHOD 04/28/2025 11:24 AM [facility] Calcium 8.3(L) 8.5 - 10.5 mg/dL LAB CHEMISTRY METHOD 04/28/2025 11:24 AM [facility] Blood Venous blood specimen / Unknown Venipuncture / Unknown 04/28/2025 10:31 AM EDT 04/28/2025 10:56 AM EDT Connor Pace MD LAB BLOOD ORDERABLES Final Result [facility] LAB [address] [place] [address], [place] [phone] * Echo Outside Images/Report (04/21/2025 9:30 AM EDT) Anatomical Region Laterality Modality Ultrasound Historical Provider CV ECHO PROCEDURES Final Result * GRZEGORZ SCREENING DIGITAL (12/23/2018 9:09 AM EST) Anatomical Region Laterality Modality Mammography 12/23/2018 8:05 AM EST Narrative 12/23/2018 9:[address] [facility] Diagnostic Imaging Department [address] [place] [address] Patient: TANYAANNABELLE D.O.B./Age/Sex: 1950 - 68 - F Unit#: [id number] Location/Status: SPDIMAM/REG CLI Mnemonic/Ordering Site: DIGSC/SPMAM Ordering Physician: ROC FORD MD Grzegorz Screening Digital - 12/23/18845 EXAM: Grzegorz Screening Digital EXAM DATE AND TIME: 12/23/2018 8:47 AM HISTORY: Screening. COMPARISON: 05/29/17, 09/13/15, 07/13/10 TECHNIQUE: CC and MLO views of both breasts were obtained using full field digital mammography. Bilateral digital breast tomosynthesis was performed in the MLO projection. 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 TISSUE DENSITY: b. There [...] Routine screening mammogram BILATERAL in 1 year. 26752, 13170 3341F, 7089F Dictating Physician: SYDNEY COTTON MD Electronically Signed by: SYDNEY COTTON MD Dic Date/Time: 12/23/18908 Sign date/Time: 12/23/18908 Procedure Note Sydney Cotton MD - 10/23/2022 [facility] Diagnostic Imaging Department [address] [place] [address] Patient: ANNABELLE COLEMAN./Age/Sex: 1950 - 68 - F Unit#: [id number] [facility] Mnemonic/Ordering Site: [facility] Ordering Physician: ROC FORD MD Grzegorz Screening Digital - 12/23/18 - 0846 EXAM: [facility] Screening Digital EXAM DATE AND TIME: 12/23/2018 8:47 AM HISTORY: Screening. COMPARISON: 05/29/17, 09/13/15, 07/13/10 TECHNIQUE: CC and MLO views of both breasts were obtained using fullfield digital mammography. Bilateral digital breast tomosynthesis was performedin the MLO projection. 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 TISSUE DENSITY: b. There are scattered [...] Routine screening mammogram BILATERAL in 1 year. 20832, 53876 3341F, 7025F Dictating Physician: SYDNEY COTTON MD Electronically Signed by: SYDNEY COTTON MD Dic Date/Time: 12/23/18908 Sign date/Time: 12/23/18908 Roc Ford MD IMG BI PROCEDURES Final Resul t from Last 3 Months or Most Recently Relevant to Health Maintenance Insurance * Guarantor: Annabelle Coleman Account Type Relation to Patient Date of Phone Billing Address Personal/Family Self 1950 [phone] (Work) [address] [facility] [address] [place] [address] MEDICARE [facility] Advance Directives * Full Code - Default [...] currently active code status orders. Care Teams Nondestructive Tester Relationship Specialty Start Date End Date Barbara Winchester MD [address] [place] [address] PCP - General Internal Medicine 04/28/25
--- OUTSIDE RECORDS SUMMARY | 2025-07-05 13:03 | XMS_ITS | Clinical Summary ---
Author Organization [facility] Address [address] [facility] [address] [place] [address] Phone Care Team Providers Care Carpet Installer Name Role Phone Barbara Winchester MD Primary [...] tablet 3 10/07/2022 Active ergocalciferol 1.25 MG (28303 UT) capsule Take 50,000 Units by mouth [...] average glucose, using the formula of the V5P-Qdqqbrm Average Glucose study (ADAG), Diabetes Care, Vol.31,#8, Jun. 2007 05/15/2020 8:26 AM EDT us Alma Delia Ford MD LAB BLOOD ORDERABLES Final Resu lt [place] from Last 3 Months or Most Recently Relevant to Health Maintenance Insurance [facility] Medicare [facility] Medicare Care Teams Carpet Installer Relationship Specialty Start Date End Date Barbara Winchester MD PCP - General Dental Supervisor Die Casting 04/01/23
== END 2025-07-05 11:57 | disposition home or self-care (01) ==
LOC: HO.HKAS 11:23
PROVIDERS: PCP Internal Medicine; Visit Provider Internal Medicine Nephrology
DX: N18.32 Chronic kidney disease, stage 3b (principal); D63.1 Anemia in chronic kidney disease; N18.5 Chronic kidney disease, stage 5; E11.21 Type 2 diabetes mellitus with diabetic nephropathy; N25.81 Secondary hyperparathyroidism of renal origin; I12.0 Hypertensive chronic kidney disease with stage 5 chronic kidney disease or end stage renal disease
CPT/HCPCS: 99214

== ENCOUNTER → 2025-07-05 11:22 | Outpatient (BNVA) | payer MEDICARE, OTHER, SELFPAY | PROVIDERS: PCP Internal Medicine; Visit Provider Internal Medicine Nephrology | DX: I12.0 Hypertensive chronic kidney disease with stage 5 chronic kidney disease or end stage renal disease (principal); E11.22 Type 2 diabetes mellitus with diabetic chronic kidney disease; N18.5 Chronic kidney disease, stage 5; D63.1 Anemia in chronic kidney disease; N25.81 Secondary hyperparathyroidism of renal origin | CPT/HCPCS: 96372; 99212; Q5106 ==

== ENCOUNTER 2025-07-13 10:19 | Outpatient (REF) | payer MEDICARE, OTHER, SELFPAY ==
--- OUTSIDE RECORDS SUMMARY | 2025-07-13 12:32 | XMS_ITS | Clinical Summary ---
Author Organization [facility] Address [address] [facility] [address] [place] [address] Phone Care Team Providers Care Dietitian Teaching Name Role Phone Barbara Winchester MD Primary [...] tablet 3 10/07/2022 Active ergocalciferol 1.25 MG (74695 UT) capsule Take 50,000 Units by mouth [...] average glucose, using the formula of the Y6T-Mypwajm Average Glucose study (ADAG), Diabetes Care, Vol.31,#8, Jun. 2007 05/15/2020 8:26 AM EDT us Alma Delia Ford MD LAB BLOOD ORDERABLES Final Resu lt [place] from Last 3 Months or Most Recently Relevant to Health Maintenance Insurance [facility] Medicare [facility] Medicare Care Teams Dietitian Teaching Relationship Specialty Start Date End Date Barbara Winchester MD PCP - General Dental Managing Partner 04/01/23
[2025-07-13 13:33] LABS: MANUAL DIFF FLAG NO
[2025-07-13 13:59] LABS: Hematocrit 25.2 % (37.0-47.0); Hemoglobin 8.0 g/dl (12.0-16.0); Imm Gran Abs Auto 0.02 X10*3/uL (0.00-0.03); Imm Gran Pct Auto 0.3 % (0.0-0.4); Lymphocytes Absolute Auto 1.1 X10*3/uL (1.2-4.9); Mean Corpuscular HGB Conc 31.7 g/dl (31.0-35.0); Mean Corpuscular Hemoglobin 27.6 pg (27.0-33.0); Mean Corpuscular Volume 86.9 fL (80.0-98.0); NRBC Abs Auto 0.000 X10*3/uL (0.0-0.012); NRBC Pct Auto 0.0 /100WBC (0.0-0.2); Platelet Count 258 X10*3/uL (160-400); Red Blood Count 2.90 X10*6/uL (4.20-5.50); White Blood Count 7.5 X10*3/uL (4.8-10.8)
== END 2025-07-13 10:20 | disposition home or self-care (01) ==
LOC: HO.HKASLDS 10:19
PROVIDERS: Visit Provider Internal Medicine Nephrology
DX: I12.0 Hypertensive chronic kidney disease with stage 5 chronic kidney disease or end stage renal disease (principal); N18.5 Chronic kidney disease, stage 5; E11.22 Type 2 diabetes mellitus with diabetic chronic kidney disease; D63.1 Anemia in chronic kidney disease; N25.81 Secondary hyperparathyroidism of renal origin
CPT/HCPCS: 36415; 85025

== ENCOUNTER 2025-07-15 18:23 | Inpatient (IN) | payer MEDICARE, OTHER, SELFPAY ==
--- NOTE | ~2025-07-15 | XR_ITS ---
CLINICAL HISTORY: sob 1 view chest x-ray Comparison: CR/DC/SR - XR CHEST 2 VIEWS - 12/17/23 13:36 EST Findings: Small bilateral pleural effusions. Mild enlargement of the cardiac silhouette. No acute fracture. Sternotomy wires. IMPRESSION: 1. Small bilateral pleural effusions. 2. Stable mild cardiomegaly. This document has been electronically signed by: Leticia Linn MD on 07/15/2025 22:14:48
--- NOTE | ~2025-07-15 | IR_ITS ---
PROCEDURE: IR INSERTION OF TUNNEL CATHETER CLINICAL INFORMATION: Renal failure. Needs renal dialysis. COMPARISON: None available. TECHNIQUE: Following explaining ultrasound and fluoroscopy-guided placement of a right permacatheter procedure, benefits and risk, a written consent was obtained. Preliminary ultrasound imaging was obtained through the right neck. An optimal site was selected and marked on the skin. The marked site was cleaned and draped in usual sterile manner. 1% lidocaine was administered puncture site. Under sterile ultrasound guidance a singlewall needle was advanced and right jugular vein was punctured just above the clavicle. After observing venous return a thin guidewire was advanced and needle withdrawn. A 5 Vietnamese dilator with sheath was placed over the guidewire and the unit was anchored to the drape with hemostat. Approximately 1 gauze length away from right neck incision 1% lidocaine was administered along the right anterior chest wall. 1% lidocaine was also administered as from the right anterior chest wall to the right neck incision in the subcutaneous fashion. A small skin incision was performed. A tunneler attached to the catheter was advanced from the anterior chest wall incision to the neck incision and the permacatheter was pulled through the right neck incision. The tunneler was there are milder from the catheter. At the right neck incision the guidewire and the dilator was removed and a long 0.035 J-wire was advanced through the 5 Vietnamese sheath under fluoroscopy into the IVC. The 5 Vietnamese sheath was removed. The site was then dilated with 7 Vietnamese 10 Vietnamese and 14 Vietnamese dilator. A dilator with sheath was introduced over the guidewire and the dilator removed. The permacatheter was then inserted over the sheath into the SVC. The peel-away sheath was removed and the permacatheter lumens were flushed with heparinized saline. The catheter was anchored to the skin by 3-0 nylon nonabsorbable sutures. Simple dressing was applied at puncture site. Patient tolerated procedure extremely well. Along the right All elements of maximal sterile barrier technique followed including use of cap, mask, sterile gown, sterile gloves, a sterile full body drape and hand hygiene. Also followed skin preparation with 2% chlorhexidine for cutaneous antisepsis, and sterile ultrasound preparation with sterile gel and probe cover when applicable. FINDINGS: On preliminary ultrasound imaging there is widely patent right renal vein. 14.5 Vietnamese 23 seen along the right permacatheter was placed with its tip in the right distal SVC. The catheter is ready for use. IR/IR cvc insert central tunnel IMPRESSION: Successful ultrasound and fluoroscopy-guided placement of a tunneled right permacatheter with its tip in mid to distal SVC. The catheter is ready for use. Fluoroscopy time: 4.6 minutes. DLP: 65.3 mGy. Electronically signed by: Kael Carpenter MD 07/21/2025 11:07 AM EDT
[2025-07-15 18:54] VITALS: BP 152/69; PULSE 63; RESP 18; TEMP 36.6; O2SAT 96; BMI 30.5
--- NOTE | 2025-07-15 18:57 | ED_ITS ---
HPI - General Adult General Chief complaint: Recheck/Abnormal Lab/Rx Stated complaint: Sent by pcp for transfusion Time Seen by Provider: 07/15/25 20:02 Source: patient Mode of arrival: ambulatory Limitations: no limitations History of Present Illness ED Provider: Dr. Krause HPI narrative: This is a 75-year-old female history of chronic kidney disease, hypertension, anemia, diabetes, hyperlipidemia presented hospital today for evaluation of elevated urea level. Patient was sent in by Dr. Jaime the nephrologists for evaluation. He would like patient to be admitted to the hospital for dialysis. He stated that patient does have a left upper extremity fistula that is mature for dialysis. He will plan to transfuse a unit of blood through the dialysis. Patient has been complaining of increased leg edema and some shortness of breath on exertion. Patient stated that she feels her cognition has been slow down. Related Data Home Medications ?Medication ?Instructions ?Recorded ?Confirmed aspirin 81 mg tablet,delayed 81 mg PO DAILY 10/20/23 release ezetimibe 10 mg tablet 10 mg PO DAILY 10/20/23 ferrous sulfate 137 mg (45 mg mg PO DAILY 10/20/23 iron) tablet,extended release (Slow Fe) carvedilol 3.125 mg tablet 6.25 mg PO BID 12/02/23 magnesium 250 mg tablet 250 mg PO DAILY 12/02/23 freestyle maulik 2 subcut (via wearable injectr ) 03/02/24 furosemide 40 mg tablet 60 mg PO DAILY 05/10/25 Previous Rx's ?Medication ?Instructions ?Recorded atorvastatin 80 mg tablet 80 mg PO BEDTIME 90 days #90 tabs 08/15/20 calcitriol 0.25 mcg capsule 0.25 mcg PO 3XW #90 caps 0 01/04/25 ergocalciferol (vitamin D2) 1,250 1,250 mcg PO .once a month 90 days 01/04/25 mcg (50,000 unit) capsule #3 caps isosorbide mononitrate 60 mg 120 mg (2 x 60 mg) PO ARLETTE LY 90 02/10/25 tablet,extended release 24 hr days #180 tabs hydralazine 25 mg tablet 50 mg (2 x 25 mg) PO BID 90 days 03/11/25 #360 tabs Allergies Allergy/AdvReac Type Severity Reaction Status Date / Time liraglutide (Victoza) Allergy Unknown Unknown Verified 07/05/25 11:29 lisinopril (LISINOPRIL) Allergy Unknown cough Verified 07/05/25 11:29 dapagliflozin (From Farxiga) Allergy Nausea and Verified 07/15/25 18:57 Vomiting adhisive Allergy Unknown Unknown Uncoded 10/20/23 14:28 Review of Systems 2 Review of Systems: Pertinent review of systems as mentioned in HPI. All other system otherwise negative. [facility] Past Medical History [facility] Narrative: Medical history as mentioned in HPI Medical History (Updated 07/15/25 @ 21:29 by Rossana Krause DO) Secondary hyperparathyroidism (of renal origin) Diabetic retinopathy Essential (primary) hypertension Aortic valve stenosis Chronic diastolic CHF (congestive heart failure) Type 2 diabetes mellitus CKD (chronic kidney disease) stage 3, GFR 30-59 ml/min HLD (hyperlipidemia) Surgical History Aortic valve replaced S/P quadruple vessel bypass Family History Family History Father Diabetes Social History Social History Alcohol intake: never Patient Tobacco Use Status: Never used Tobacco Smoked in Last 30 Days: No Use of substances other than those prescribed or required for medical reasons: No Advance Directives: No Advance Directives Information Provided: No Physical Exam ED Exam Exam: General: Pleasant, no distress, interacting appropriately Head: Normacephalic, atraumatic ENT: oral mucosa moist, neck supple, no tracheal deviation Cardiovascular: regular rate, regular rhythm, no murmurs, rubbing, gallops Respiratory: Bibasilar crackles Gastrointestinal: Soft, non distended, non tender, non guarding Extremities: +3 pitting edema bilateral lower extremities, left palpable thrill on the left AV fistula in the upper extremity Neurological: Awake and alert, no facial droop noted Skin: Warm and dry Psychiatric: Appropriate mood and thoughts Vital Signs: Vital Signs - 24 hr 07/15/25 18:54 07/15/25 20:33 Temperature 97.9 F 98.3 F Pulse Rate 63 60 Respiratory Rate 18 15 Blood Pressure 152/69 H 151/40 H Pulse Oximetry 96 98 Oxygen Delivery Method Room Air Room Air BMI result Body Mass Index 30.5 Course Course Course Narrative: Rapid medical examination performed in triage by Nicole Moss PA-C. Patient is a 75 year old assigned female at presenting to the emergency department with a possibly low hemoglobin. Detailed physical exam and review of systems are deferred to the billing clinician. Labs ordered. Patient placed back in the waiting room pending room availability and results. Medical Decision Making Medical Decision Making [facility] Narrative: 75-year-old female history of CKD, diabetes, hypertension presented hospital today for evaluation of elevated urea level requiring dialysis. I discussed the case with improvement rn Dr. Ni we will plan to admit patient and here for dialysis. Urea level is 91. Patient does have some signs of metabolic acidosis. Patient's BNP is elevated at 13 57 we will add on chest x-ray. I suspect patient likely is fluid overloaded. Patient does take Lasix at home for diuresis. Discussed the plan with the patient she is in agreement with this. We will plan to admit patient to the hospital for further definitive renal management. Differential Diagnosis Differential Diagnoses: The differential diagnosis associated with the presentation includes Uremia, end-stage renal disease, metabolic acidosis, fluid overload Consult Healthcare Provider Management of the patient was discussed with: Hospitalist and Cable Respooler Dr. Jaime (Nephrology) Lab Data [facility] Lab Attestation statement: I reviewed the patient's lab results. 07/15/25 19:37 07/15/25 19:37 Labs: Lab Results 07/15/25 Range/Units 19:37 WBC 8.4 (4.8-10.8) X10*3/uL RBC 3.06 L (4.20-5.50) X10*6/uL Hgb 8.6 L (12.0-16.0) g/dl Hct 26.7 L (37.0-47.0) % MCV 87.3 (80.0-98.0) fL MCH 28.1 (27.0-33.0) pg MCHC 32.2 (31.0-35.0) g/dl RDW 18.7 H (11.0-16.0) % Plt Count 238 (160-400) X10*3/uL MPV 9.8 (9.4-12.3) fL Immature Gran % (Auto) 0.2 (0.0-0.4) % Neut % (Auto) 72.1 (45-73) % Lymph % (Auto) 13.1 L (20-40) % Worth % (Auto) 11.3 H (2-11) % Eos % (Auto) 2.8 (0-4) % Baso % (Auto) 0.5 (0-2) % Lymph # (Auto) 1.1 L (1.2-4.9) X10*3/uL Worth # (Auto) 0.9 (0.1-1.2) X10*3/uL Eos # (Auto) 0.2 (0.0-0.4) X10*3/uL Baso # (Auto) 0.0 (0.0-0.2) X10*3/uL Abs Immat Gran (auto) 0.02 (0.00-0.03) X10*3/uL Absolute Neuts (auto) 6.0 (2.0-8.3) x10*3/uL Absolute Nucleated RBC 0.000 (0.0-0.012) X10*3/uL Nucleated RBC % (auto) 0.0 (0.0-0.2) /100WBC PT 15.3 H (10.9-12.4) SEC INR 1.3 H (0.9-1.1) Sodium 142 (135-145) mmol/L Potassium 4.1 (3.3-5.1) mmol/L Chloride 107 (96-108) mmol/L Carbon Dioxide 21 L (22-29) mmol/L Anion Gap 18 (12-20) BUN 91 H (9-16) mg/dL Creatinine 4.77 H* (0.5-1.4) mg/dL Estim Creat Clear Calc 9.7 Estimated GFR 9 Random Glucose 153 H (60-115) mg/dL Calcium 8.4 (8.4-10.2) mg/dL Magnesium 2.4 (1.6-2.6) mg/dL Total Bilirubin 0.3 (0.0-1.0) mg/dL AST 25 (5-31) U/L ALT 12 (0-31) U/L Alkaline Phosphatase 73 (39-117) U/L B-Natriuretic Peptide 1357 H (<100) pg/mL Total Protein 6.9 (6.5-8.0) g/dL Albumin 3.7 (3.5-5.0) g/dL Blood Type A Positive Antibody Screen NEGATIVE Chronic Conditions Patient?s care impacted by: Diabetes and Hypertension CKD Critical Care Time Critical Care Time Critical Care Time: Yes Total Critical Care Time: 40 Attestation: Time is exclusive of separately billable procedures. Time includes: direct patient care, patient reassessment, coordination of patient care, interpretation of data (laboratory data, pulse oximetry, arterial blood gases and chest xrays), review of patient's medical records, medical consultation and documentation of patient care. Procedures excluded from critical care time: central intravenous line placement and electrocardiography. Discharge Plan Discharge Clinical Impression: Acute uremia, End stage kidney disease Patient Disposition: Admitted As Inpatient Print Language: Ugandan
[2025-07-15 19:43] LABS: MANUAL DIFF FLAG NO
[2025-07-15 19:44] LABS: Hematocrit 26.7 % (37.0-47.0); Hemoglobin 8.6 g/dl (12.0-16.0); Imm Gran Abs Auto 0.02 X10*3/uL (0.00-0.03); Imm Gran Pct Auto 0.2 % (0.0-0.4); Lymphocytes Absolute Auto 1.1 X10*3/uL (1.2-4.9); Mean Corpuscular HGB Conc 32.2 g/dl (31.0-35.0); Mean Corpuscular Hemoglobin 28.1 pg (27.0-33.0); Mean Corpuscular Volume 87.3 fL (80.0-98.0); NRBC Abs Auto 0.000 X10*3/uL (0.0-0.012); NRBC Pct Auto 0.0 /100WBC (0.0-0.2); Platelet Count 238 X10*3/uL (160-400); Red Blood Count 3.06 X10*6/uL (4.20-5.50); White Blood Count 8.4 X10*3/uL (4.8-10.8)
[2025-07-15 19:59] LABS: INTERNATIONAL NORM RATIO 1.3 (0.9-1.1); Prothrombin Time 15.3 SEC (10.9-12.4)
--- OUTSIDE RECORDS SUMMARY | 2025-07-15 20:00 | XMS_ITS | Clinical Summary ---
Author Organization [facility] Address [address] [facility] [address] [place] [address] Phone Care Team Providers Care Leadership Development Manager Name Role Phone Barbara Winchester MD [...] tablet 3 10/07/2022 Active ergocalciferol 1.25 MG (82867 UT) capsule Take 50,000 Units by mouth [...] average glucose, using the formula of the N2I-Rpuiblq Average Glucose study (ADAG), Diabetes Care, Vol.31,#8, Jun. 2007 05/15/2020 8:26 AM EDT us Alma Delia Ford MD LAB BLOOD ORDERABLES Final Resu lt [place] from Last 3 Months or Most Recently Relevant to Health Maintenance Insurance [facility] Medicare [facility] Medicare Care Teams Leadership Development Manager Relationship Specialty Start Date End Date Barbara Winchester MD PCP - General Dental Preservative Filler Machine Operator 04/01/23
--- OUTSIDE RECORDS SUMMARY | 2025-07-15 20:00 | XMS_ITS | Clinical Summary ---
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 Name Role Phone Barbara Winchester MD Primary [...] 9:45 AM EDT Office Visit General Surgery [address] [phone] Connor Pace MD CKD (chronic kidney disease) stage 5, GFR less than 15 ml/min (CMS/HCC V24, CMS/HCC V28) (Primary Dx) 05/05/2025 1:15 PM EDT Office Visit [address] [phone] Connor Pace MD CKD (chronic kidney disease) stage 5, GFR less than 15 ml/min (CMS/HCC V24, CMS/HCC V28) (Primary Dx) 04/28/2025 2:54 PM EDT Anesthesia Event [facility] Main OR [address] [place] [phone] Leandro Flores DO Kriz, Petra, MD 04/28/2025 12:00 PM EDT - 04/28/2025 1:[address] [facility] OR [address] [place] [phone] Connor Pace MD CREATION AV FISTULA LEFT UPPER EXTREMITY [04382 (CPT )] 04/28/2025 10:25 AM EDT - 04/28/2025 5:29 PM EDT Hospital Encounter [facility] OR [address] [place] [phone] Connor Pace MD Discharge Disposition: Home or Self Care from Last 3 Months Surgical History Surgery [...] Coronary atherosclerosis of unspecified type of vessel, [place] or graft 07/27/02 DX:Coronary atheroscle rosis of unspecified type of vessel, [place] or graft; COMMENT: Echo 09/11/02-- EF at 55% Secondary hyperparathyroidis m (CMS/HCC V24) Fluid retention Family History Medical History [...] stage 5, GFR less than 15 ml/min ([facility] V24, CMS/[facility] V28) Special Needs Creation AV [...] OUTSIDE IMAGES/REPORT Routine 04/21/2025 9:30 AM EDT [facility] SCREENING DIGITAL Routine 12/23/2018 9:09 AM EST [...] Procedural (No Charge) (04/28/2025 12:07 PM EDT) Pathologist [facility] [place] Ventricular Rate ECG 59 BPM GEMUSE Atrial Rate 59 BPM GEMUSE P-R Interval 322 ms GEMUSE QRS Duration 154 ms GEMUSE Q-T Interval 492 ms GEMUSE QTc 487 ms GEMUSE P Wave [place] 45 degrees GEMUSE R [place] -60 degrees GEMUSE T [place] 113 degrees GEMUSE ECG Interpretation Sinus bradycardia [...] CBC auto differential (04/28/2025 10:31 AM EDT) Pathologist [facility] [place] WBC 7.4 4.8 - 10.8 K/mcL LAB HEMETOLOGY METHOD 04/28/2025 11:05 AM EDT [facility] RBC 3.30(L) 3.80 - 4.80 M/[facility] LAB HEMETOLOGY METHOD 04/28/2025 11:05 AM EDT [facility] Hemoglobin 9.2(L) 11.5 - 16.0 g/dL LAB HEMETOLOGY METHOD 04/28/2025 11:05 AM EDT [facility] Hematocrit 29.8(L) 35.0 - 47.0 [...] % LAB HEMETOLOGY METHOD 04/28/2025 11:05 AM EDT [facility] Immature Granulocytes Relative 0.3 % LAB HEMETOLOGY [facility] Neutrophils Absolute 5.13 1.50 - 7.00 K/mcL LAB HEMETOLOGY METHOD 04/28/2025 11:05 AM [facility] Lymphocytes Absolute 1.45 1.00 - 5.00 K/mcL LAB HEMETOLOGY METHOD 04/28/2025 11:[facility] Monocytes Absolute 0.67 0.20 - [...] Pace MD LAB BLOOD ORDERABLES Final Result [facility] [address] [place] [address], * (ABNORMAL) Basic metabolic panel (04/28/2025 10:31 AM EDT) Sodium 140 133 - 145 mmol/L LAB CHEMISTRY METHOD 04/28/2025 11:24 AM EDT [facility] Potassium 4.7 3.5 - 5.5 [...] 11:24 AM [facility] Blood Venous blood specimen / Unknown Venipuncture / Unknown 04/28/2025 10:31 AM EDT 04/28/2025 10:56 AM EDT us Connor Pace MD LAB BLOOD ORDERABLES Final Result [facility] [address] [place] [address], [place] [phone] * Echo Outside Images/Report (04/21/2025 9:30 AM EDT) Anatomical Region Laterality Modality Ultrasound us Historical Provider MD HERNANDEZ ECHO PROCEDURES Final Result * [facility] SCREENING DIGITAL (12/23/2018 9:09 AM EST) Anatomical Region Laterality Modality Mammography 12/23/2018 8:05 AM EST Narrative 12/23/2018 9:09 AM EST [facility] Diagnostic Imaging Department [address] [place] [address] Patient: ELAN COLEMAN D.O.B./Age/Sex: 1950 - 68 - F Unit#: [id number] Location/Status: SPDIMAM/REG CLI Mnemonic/Ordering Site: [facility] Ordering Physician: ROC FORD MD [facility] Screening Digital - 12/23/1846 EXAM: [facility] Screening Digital EXAM DATE AND TIME: 12/23/2018 8:47 AM HISTORY: Screening. COMPARISON: 05/29/17, 09/13/15, 07/13/10 TECHNIQUE: CC and MLO views of both breasts were obtained using full field digital mammography. Bilateral digital breast tomosynthesis was performed in the MLO projection. Computer aided detection with the Sara Campbell 7.2-H was employed. TISSUE DENSITY: b. There [...] Routine screening mammogram BILATERAL in 1 year. [address]30, [address]8839 3341F, 7025F Dictating Physician: SYDNEY COTTON MD Electronically Signed by: SYDNEY COTTON MD Dic Date/Time: 12/23/18908 Sign date/Time: 12/23/18908 Procedure Note Sydney Cotton MD - 10/23/2022 [facility] Diagnostic Imaging Department [address] [place] [address] Patient: ELAN COLEMAN Wendy Xiong/Age/Sex: 1950 - 68 - F Unit#: [id number] [facility] Mnemonic/Ordering Site: [facility] Ordering Physician: ROC FORD MD [facility] Screening Digital - 12/23/1846 EXAM: [facility] Screening Digital EXAM DATE AND TIME: 12/23/2018 8:47 AM HISTORY: Screening. COMPARISON: 05/29/17, 09/13/15, 07/13/10 TECHNIQUE: CC and MLO views of both breasts were obtained using fullfield digital mammography. Bilateral digital breast tomosynthesis was performedin the MLO projection. Computer aided detection with the [employer] Apps.2-PlaySpanas employed. TISSUE DENSITY: b. There are scattered [...] Routine screening mammogram BILATERAL in 1 year. [address]259, [address]76 3341F, 7025F Dictating Physician: SYDNEY COTTON MD Electronically Signed by: SYDNEY COTTON MD Dic Date/Time: 12/23/18908 Sign date/Time: 12/23/18908 Roc Ford MD IMG BI PROCEDURES Final Resul t from Last 3 Months or Most Recently Relevant to Health Maintenance Insurance * Guarantor: Elan Coleman Account Type Relation to Patient Date of Phone Billing Address Personal/Family Self 1950 [phone] (Work) [address] [facility] [address] [place] [address] MEDICARE [facility] Advance Directives * Full Code - [...] currently active code status orders. Care Teams Smelting Engineer Relationship Specialty Start Date End Date Barbara Winchester MD [address] [place] [id number] PCP - General Internal Medicine 04/28/25
[2025-07-15 20:01] LABS: Alanine Aminotransferase 12 U/L (0-31); Albumin Level 3.7 g/dL (3.5-5.0); Alkaline Phosphatase 73 U/L (39-117); Anion Gap 18 (12-20); Aspartate Amino Transferase 25 U/L (5-31); Blood Urea Nitrogen 91 mg/dL (9-16); Calcium 8.4 mg/dL (8.4-10.2); Carbon Dioxide 21 mmol/L (22-29); Chloride 107 mmol/L (96-108); Creatinine Clr Calc Pharmacy 9.7; Estimated Glomerular Filt Rate 9; Magnesium 2.4 mg/dL (1.6-2.6); Potassium 4.1 mmol/L (3.3-5.1); Sodium 142 mmol/L (135-145); Total Protein 6.9 g/dL (6.5-8.0)
[2025-07-15 20:03] LABS: B Type Natriuretic Peptide 1357 pg/mL (<100)
[2025-07-15 20:33] VITALS: BP 151/40; PULSE 60; RESP 15; TEMP 36.8; O2SAT 98
--- NOTE | 2025-07-15 21:34 | P.HPHOSP_ITS ---
History of Present Illness Date of Service: 07/15/25 Chief Complaint: gen weakness 75-year-old female with a past history HTN, HLD, CKD stage 5, left arm AV fistula; diabetes HX aortic valve replacement; presented to the hospital today with a chief complaint of generalized weakness. Patient reports that she did feel generally weak and fatigued. Has had a follow up appointment with her medical technologist prn who noted that her uremia is increasing. Mentions she takes Lasix 80 mg at home with little urine output lately. Denies any chest pain or palpitations. Denies any fevers and chills. Reports bilateral leg swelling. Denies any pain. Denies any urinary symptoms. Review of all other systems is negative except mentioned above ER course: Per ER physician, patient noted to be breathing comfortably on room air. Noted to have elevated uremia. Spoke to Dr. Jaime who sent her to the ER for initiation of dialysis. Mentions patient has left arm AV fistula that is make showed. [facility] Medical History (Updated 07/15/25 @ 21:29 by Rossana Krause DO) Secondary hyperparathyroidism (of renal origin) Diabetic retinopathy Essential (primary) hypertension Aortic valve stenosis Chronic diastolic CHF (congestive heart failure) Type 2 diabetes mellitus CKD (chronic kidney disease) stage 3, GFR 30-59 ml/min HLD (hyperlipidemia) Family History Father Diabetes Surgical History Aortic valve replaced S/P quadruple vessel bypass Social History Alcohol intake: never Patient Tobacco Use Status: Never used Tobacco Smoked in Last 30 Days: No Use of substances other than those prescribed or required for medical reasons: No Advance Directives: No Advance Directives Information Provided: No Meds Allergies Allergy/AdvReac Type Severity Reaction Status Date / Time liraglutide (Victoza) Allergy Unknown Unknown Verified 07/05/25 11:29 lisinopril (LISINOPRIL) Allergy Unknown cough Verified 07/05/25 11:29 dapagliflozin (From Farxiga) Allergy Nausea and Verified 07/15/25 18:57 Vomiting adhisive Allergy Unknown Unknown Uncoded 10/20/23 14:28 Home Medications ?Medication ?Instructions ?Recorded ?Confirmed ?Last Taken ?Type aspirin 81 mg tablet,delayed 81 mg PO DAILY 10/20/23 Unknown History release ezetimibe 10 mg tablet 10 mg PO DAILY 10/20/23 Unk nown History ferrous sulfate 137 mg (45 mg mg PO DAILY 10/20/23 Un known History iron) tablet,extended release (Slow Fe) carvedilol 3.125 mg tablet 6.25 mg PO BID 12/02/23 Un known History magnesium 250 mg tablet 250 mg PO DAILY 12/02/23 Un known History freestyle maulik 2 subcut (via wearable injectr ) 03/02/24 Unknown History furosemide 40 mg tablet 60 mg PO DAILY 05/10/25 Unk nown History Physical Exam 2 Vital Signs and Narrative: Vital Signs: Last Vital Signs Temp 98.3 F 07/15/25 20:33 Pulse 60 07/15/25 20:33 Resp 15 07/15/25 20:33 BP 151/40 H 07/15/25 20:33 Pulse Ox 98 07/15/25 20:33 O2 Del Method Room Air 07/15/25 20:33 BMI result Body Mass Index 30.5 Gen: Appears be in no acute distress HEENT: NCAT, Moist mucosa. Pulmonary: Vesicular breath sounds, fair air entry CVS: Normal S1-S2 Abdomen: BS+, Soft, Nontender Extremities: Warm well perfused Neuro: Alert and awake. Results Labs 07/15/25 19:37 07/15/25 19:37 Labs: Laboratory Results - last 24 hr 07/15/25 19:37 MCV 87.3 MCH 28.1 MCHC 32.2 RDW 18.7 H Plt Count 238 MPV 9.8 Immature Gran % (Auto) 0.2 Neut % (Auto) 72.1 Lymph % (Auto) 13.1 L [place] % (Auto) 11.3 H Eos % (Auto) 2.8 Baso % (Auto) 0.5 Lymph # (Auto) 1.1 L [place] # (Auto) 0.9 Eos # (Auto) 0.2 Baso # (Auto) 0.0 Abs Immat Gran (auto) 0.02 Absolute Neuts (auto) 6.0 Absolute Nucleated RBC 0.000 Nucleated RBC % (auto) 0.0 PT 15.3 H INR 1.3 H Anion Gap 18 Estim Creat Clear Calc 9.7 Estimated GFR 9 Random Glucose 153 H Calcium 8.4 Magnesium 2.4 Total Bilirubin 0.3 AST 25 ALT 12 Alkaline Phosphatase 73 B-Natriuretic Peptide 1357 H Total Protein 6.9 Albumin 3.7 Blood Type A Positive Antibody Screen NEGATIVE Assessment and Plan (1) CKD (chronic kidney disease) stage 5, GFR less than 15 ml/min: Status: Acute Plan 75-year-old female with a past history HTN, HLD, CKD stage 5, left arm AV fistula; diabetes HX aortic valve replacement; presented to the hospital today with a chief complaint of generalized weakness. Patient reports that she did feel generally weak and fatigued. Noted to be uremic requiring dialysis. ESRD: Uremia: Patient is sent by her medical technologist prn to initiate dialysis. Patient has had left arm AV fistula placed. Patient being monitored on telemetry Low-potassium diet Nephrology follow-up in a.m. Diabetes: Insulin sliding scale. Hypertension: Patient blood pressure on the low normal side especially diastolic. Will hold home antihypertensives for now. DVT prophylaxis: SubQ heparin Code status: Full code Quality Stroke Does the patient have a stroke diagnosis?: No VTE Prior VTE?: No VTE Risk Level:: Medical - moderate - high VTE Device Contraindication: Treatment Not Indicated VTE Drug Contraindication: N/A - Med Ordered
--- NOTE | 2025-07-15 22:37 | PC.NURSE ---
Patient stating shes on a lot of medications and has a lot of things going on right now, so she would rather not get a heparin shot on top of it.
[2025-07-15 23:46] VITALS: BP 156/50; PULSE 61; RESP 18; TEMP 36.4; O2SAT 94
[2025-07-16] VITALS (8 sets, daily range): BP systolic 121–171; BP diastolic 49–81; PULSE 60–90; RESP 14–19; TEMP 36.4–36.9; O2SAT 92–97; BMI 30.5
--- NOTE | 2025-07-16 03:02 | PC.NURSE ---
Patient awaken to walk to the bathroom with her cane, steady gait observed as she independently walked from bathroom to stretcher.
--- NOTE | 2025-07-16 04:52 | PC.NURSE ---
Patient given warm blanket and socks as she stated she was cold. Patient given reassurance and asked when her upstairs bed would be ready. Notified patient that most likely after morning rounds.
[2025-07-16 05:54] LABS: Hematocrit 24.4 % (37.0-47.0); Hemoglobin 7.7 g/dl (12.0-16.0); Imm Gran Abs Auto 0.03 X10*3/uL (0.00-0.03); Imm Gran Pct Auto 0.4 % (0.0-0.4); Lymphocytes Absolute Auto 1.1 X10*3/uL (1.2-4.9); MANUAL DIFF FLAG NO; Mean Corpuscular HGB Conc 31.6 g/dl (31.0-35.0); Mean Corpuscular Hemoglobin 27.7 pg (27.0-33.0); Mean Corpuscular Volume 87.8 fL (80.0-98.0); NRBC Abs Auto 0.000 X10*3/uL (0.0-0.012); NRBC Pct Auto 0.0 /100WBC (0.0-0.2); Platelet Count 224 X10*3/uL (160-400); Red Blood Count 2.78 X10*6/uL (4.20-5.50); White Blood Count 7.8 X10*3/uL (4.8-10.8)
[2025-07-16 06:25] LABS: Alanine Aminotransferase 8 U/L (0-31); Albumin Level 3.4 g/dL (3.5-5.0); Alkaline Phosphatase 65 U/L (39-117); Anion Gap 17 (12-20); Aspartate Amino Transferase 26 U/L (5-31); Blood Urea Nitrogen 90 mg/dL (9-16); Calcium 8.2 mg/dL (8.4-10.2); Carbon Dioxide 19 mmol/L (22-29); Chloride 109 mmol/L (96-108); Creatinine Clr Calc Pharmacy 9.8; Estimated Glomerular Filt Rate 9; Potassium 3.9 mmol/L (3.3-5.1); Sodium 141 mmol/L (135-145); Total Protein 6.2 g/dL (6.5-8.0)
[2025-07-16] MEDS: 0.9 % Sodium Chloride Flush 3 ML SYRINGE IVFLUSH ×3 (07:39→21:26)
--- NOTE | 2025-07-16 09:37 | PHA.MEDREC ---
Addendum entered by Home Alvarez 07/16/25 09:52: Added Lorazepam 10 mg at bedtime PRN to patient profile. Addendum entered by Tommy Wong PharmD 07/16/25 09:38: MED REC CHECKED BY [facility] Original Note: Pharmacy Consult ? Medication Reconciliation Pharmacy has completed the medication reconciliation Checked medication reconciliation done by nurse.
--- NOTE | 2025-07-16 09:55 | PC.NURSE ---
This Rn assumed care of patient @ 0700 Patient A&O x 3 VSS Patient awaiting dialysis L arm fistula + bruit thrill IV 20 G right forearm Plan of care on going
[2025-07-16 10:16] LABS: HBS Num1 1.09 mIU/mL (0-7.99); HBc Num1 0.08 S/CO (0.00-0.79); HBsAGNum1 0.41 S/CO (0.00-0.99); Hepatitis B Surface Antigen Negative (Negative); ~Hepatitis B Surface Antibody NONREACTIVE (Nonreactive)
--- NOTE | 2025-07-16 10:20 | HO.PM.IMPN ---
Subjective Subjective Date of Service: 07/16/25 Interval History: poor appetite, fatigue Physical Exam Exam: Exam: General: AO X 3, no acute distress Resp: CTA bilateral, no accessory muscles used CVS: S1,S2,RRR GI: soft, non tender, non distended Neuro: motor grossly intact, alert Psych: appropriate affect, appropriate insight Vital Signs: Vital Signs: Last Vital Signs Temp 97.5 F 07/16/25 05:29 Pulse 60 07/16/25 05:29 Resp 17 07/16/25 05:29 BP 162/51 H 07/16/25 05:29 Pulse Ox 97 07/16/25 05:29 O2 Del Method Room Air 07/16/25 05:29 BMI result Body Mass Index 30.5 Objective Data Active Medications Acetaminophen (Acetaminophen 325 Mg Tablet) 650 mg PO Q6H PRN PRN Reason: Pain, Mild 1-3,fever,headache Calcium Carbonate (Calcium Carbonate 750 Mg Tab.Chew) 750 mg PO Q4H PRN PRN Reason: Heartburn Heparin Sodium (Porcine) (Heparin Sodium,Porcine 5,000 Unit/Ml Vial) 5,000 unit SUBCUT Q8H [facility] Last Admin: 07/16/25 05:00 Dose: Not Given Documented By: RAMÍREZ Non-Admin Reason: Patient Refused Magnesium Hydroxide (Milk Of Magnesia 30 Ml Oral.Susp) 30 ml PO DAILY PRN PRN Reason: Constipation Melatonin (Melatonin 3 Mg Tablet) 6 mg PO BEDTIME PRN PRN Reason: Insomnia Sodium Chloride (0.9 % Sodium Chloride Flush 3 Ml Syringe) 3 ml IVFLUSH QSHIFT [facility] Last Admin: 07/16/25 07:39 Dose: 3 ml Documented By: GRAEME Labs 07/16/25 05:35 07/16/25 05:35 Labs: Laboratory Results - last 24 hr 07/15/25 07/16/25 19:37 05:35 MCV 87.3 87.8 MCH 28.1 27.7 MCHC 32.2 31.6 RDW 18.7 H 18.6 H Plt Count 238 224 MPV 9.8 10.4 Immature Gran % (Auto) 0.2 0.4 Neut % (Auto) 72.1 69.7 Lymph % (Auto) 13.1 L 14.3 L Jones % (Auto) 11.3 H 12.2 H Eos % (Auto) 2.8 3.0 Baso % (Auto) 0.5 0.4 Lymph # (Auto) 1.1 L 1.1 L Jones # (Auto) 0.9 1.0 Eos # (Auto) 0.2 0.2 Baso # (Auto) 0.0 0.0 Abs Immat Gran (auto) 0.02 0.03 Absolute Neuts (auto) 6.0 5.4 Absolute Nucleated RBC 0.000 0.000 Nucleated RBC % (auto) 0.0 0.0 PT 15.3 H INR 1.3 H Anion Gap 18 17 Estim Creat Clear Calc 9.7 9.8 Estimated GFR 9 9 Random Glucose 153 H 132 H Calcium 8.4 8.2 L Magnesium 2.4 Total Bilirubin 0.3 0.3 AST 25 26 ALT 12 8 Alkaline Phosphatase 73 65 B-Natriuretic Peptide 1357 H Total Protein 6.9 6.2 L Albumin 3.7 3.4 L Blood Type A Positive Antibody Screen NEGATIVE Assessment and Plan (1) Diabetic nephropathy: Status: Acute Plan 75F PMH CKD V, DM, htn, hld, bioavr, sent in by nephro to initiate HD due to symptoms of uremia (fatigue, loss of appetite) Advanced CKD 5 with symptoms of uremia Initiating hemodialysis via mature AV fistula today Diabetes Insulin sliding scale Hypertension Carvedilol, hydralazine, Imdur Hyperlipidemia Statin DVT prophylaxis-heparin subQ Full code reason for continued hospitalization:initiating hd Quality Stroke Does the patient have a stroke diagnosis?: No VTE Prior VTE?: No VTE Risk Level:: Medical - moderate - high VTE Device Contraindication: Treatment Not Indicated VTE Drug Contraindication: N/A - Med Ordered
--- NOTE | 2025-07-16 12:35 | PM.CNNEP ---
History of Present Illness Reason for Consult Consult date: 07/16/25 Chief Complaint Chief complaint: ESRD History of Present Illness Narrative: 75-year-old lady with history of CKD stage 5, hypertension, diabetes mellitus, CAD status post CABG and AVR is admitted to the hospital after being sent from the renal Clinic for uremic symptoms to initiate her on hemodialysis. She had a AVF created on April [id number] and is currently mature and ready to use. She is undergoing her 1st session of hemodialysis this morning Review of Systems Constitutional: Reports body ache(s) and Reports daytime sleepiness Eyes: Reports change in vision and Denies decreased night vision Reports Normal hearing present and Denies bleeding gums Cardiovascular: Denies Abdominal Cramping after Meds and Denies Abdominal Distension Respiratory: Denies no additional respiratory complaints, Denies change in phlegm color and Denies chest congestion Gastrointestinal: Denies change in bowel habits and Denies change in stool character Musculoskeletal: Denies abnormal gait and Reports myalgias Skin/Breast: Denies bleeding lesions and Denies breast swelling Reports Normal hearing present, Denies Neuro-related abnormal movements, Denies abnormal gait and Denies behavioral changes Psychiatric: Denies anxiety and Denies behavioral changes [facility] Past Medical History Medical History (Updated 07/15/25 @ 21:29 by Rossana Krause DO) Secondary hyperparathyroidism (of renal origin) Diabetic retinopathy Essential (primary) hypertension Aortic valve stenosis Chronic diastolic CHF (congestive heart failure) Type 2 diabetes mellitus CKD (chronic kidney disease) stage 3, GFR 30-59 ml/min HLD (hyperlipidemia) Family History Family History Father Diabetes Surgical History Surgical History Aortic valve replaced S/P quadruple vessel bypass Social History Social History Alcohol intake: never Patient Tobacco Use Status: Never used Tobacco Meds Allergies Allergy/AdvReac Type Severity Reaction Status Date / Time liraglutide (Victoza) Allergy Unknown Unknown Verified 07/05/25 11:29 lisinopril (LISINOPRIL) Allergy Unknown cough Verified 07/05/25 11:29 dapagliflozin (From Farxiga) Allergy Nausea and Verified 07/15/25 18:57 Vomiting adhisive Allergy Unknown Unknown Uncoded 10/20/23 14:28 Active Medications: Current Medications Acetaminophen (Acetaminophen 325 Mg Tablet) 650 mg PO Q6H PRN PRN Reason: Pain, Mild 1-3,fever,headache Aspirin (Aspirin Enteric Coated 81 Mg Tablet.) 81 mg PO DAILY [facility] Atorvastatin Calcium (Atorvastatin Calcium 80 Mg Tablet) 80 mg PO DAILY@1700 [facility] Calcitriol (Calcitriol 0.25 Mcg Capsule) 0.25 mcg PO MoWeFr@0900 [facility] Calcium Carbonate (Calcium Carbonate 750 Mg Tab.Chew) 750 mg PO Q4H PRN PRN Reason: Heartburn Carvedilol (Carvedilol 6.25 Mg Tablet) 6.25 mg PO BID@0900,1700 [facility]; Protocol Ezetimibe (Ezetimibe 10 Mg Tablet) 10 mg PO DAILY [facility] Ferrous Sulfate (Ferrous Sulfate 324 Mg Tablet.) 324 mg PO DAILY [facility] Furosemide (Furosemide 40 Mg Tablet) 80 mg PO DAILY PRN; Protocol PRN Reason: Fluid Overload Heparin Sodium (Porcine) (Heparin Sodium,Porcine 5,000 Unit/Ml Vial) 5,000 unit SUBCUT Q8H [facility] Last Admin: 07/16/25 05:00 Dose: Not Given Hydralazine HCl (Hydralazine Hcl 50 Mg Tablet) 50 mg PO BID@0900,1700 [facility]; Protocol Isosorbide Mononitrate (Isosorbide Mononitrate 60 Mg Tab.Er.24h) 120 mg PO DAILY [facility]; Protocol Lorazepam (Lorazepam 1 Mg Tablet) 1 mg PO BEDTIME PRN PRN Reason: Insomnia Magnesium Hydroxide (Milk Of Magnesia 30 Ml Oral.Susp) 30 ml PO DAILY PRN PRN Reason: Constipation Melatonin (Melatonin 3 Mg Tablet) 6 mg PO BEDTIME PRN PRN Reason: Insomnia Sodium Chloride (0.9 % Sodium Chloride Flush 3 Ml Syringe) 3 ml IVFLUSH QSHIFT [facility] Last Admin: 07/16/25 07:39 Dose: 3 ml Home Medications ?Medication ?Instructions ?Recorded ?Confirmed ?Last Taken ?Type aspirin 81 mg tablet,delayed 81 mg PO DAILY 10/20/23 07/16/25 07/15/25 History release ezetimibe 10 mg tablet 10 mg PO DAILY 10/20/23 07/16/25 07/15/25 History ferrous sulfate 137 mg (45 mg 45 mg PO DAILY 10/20/23 07/16/25 07/15/25 History iron) tablet,extended release (Slow Fe) carvedilol 3.125 mg tablet 6.25 mg PO BID@0900,1700 12/02/23 07/16/25 07/15/25 History furosemide 40 mg tablet 80 mg PO DAILY PRN Fluid Overload 05/10/25 07/16/25 07/15/25 History atorvastatin 80 mg tablet 80 mg PO DAILY@1700 07/16/25 07/16/25 07/15/25 History calcitriol 0.25 mcg capsule 0.25 mcg PO MOWEFR 07/16/25 07/16/25 07/15/25 History hydralazine 25 mg tablet 50 mg PO BID@0900,1700 07/16/25 07/16/25 07/15/25 History lorazepam 1 mg tablet 1 mg PO BEDTIME PRN Insomnia 07/16/25 07/16/25 Unknown History Physical Exam Vital Signs: Last Vital Signs Temp 98.5 F 07/16/25 08:00 Pulse 60 07/16/25 08:00 Resp 19 07/16/25 08:00 BP 171/81 H 07/16/25 08:00 Pulse Ox 95 07/16/25 08:00 O2 Del Method Room Air 07/16/25 08:00 BMI result Body Mass Index 30.5 Neuro Cranial nerves: Yes Normal hearing present Results Lab Results 07/16/25 05:35 07/16/25 05:35 Lab results: Chemistry 07/15/25 07/16/25 19:37 05:35 Sodium 142 141 Potassium 4.1 3.9 Carbon Dioxide 21 L 19 L BUN 91 H 90 H Creatinine 4.77 H* 4.72 H* Calcium 8.4 8.2 L Hematology 07/15/25 07/16/25 19:37 05:35 WBC 8.4 7.8 Hgb 8.6 L 7.7 L Plt Count 238 224 Assessment and Plan (1) Essential (primary) hypertension: Status: Acute (2) HLD (hyperlipidemia): Status: Acute (3) End stage kidney disease: Status: Acute (4) Acute uremia: Status: Acute Plan CKD stage 5 progressing to end-stage renal disease: Patient presented with significant uremic symptoms We will initiate her on renal replacement therapy, for session today through AV fistula. We will do the 2nd session of renal replacement therapy on Friday, we will involve case management for arranging outpatient maintenance hemodialysis. Hypertension: Blood pressures are on the higher side prior to dialysis Currently on carvedilol 6.25 b.i.d., hydralazine 50 b.i.d. and isosorbide mononitrate 120 daily Her antihypertensive requirement would decrease after initiation of hemodialysis, we will adjust the medications accordingly. Hypocalcemia: We will get Vitamin D and PTH levels Continue calcitriol We will get phosphate levels to see if she needs any phosphate binding agents Anemia of ESRD: Hb 7.7 We will get iron profile to see if she needs and replacement versus erythropoietin to correct anemia Total time managing care of this patient today: 40 minutes. Procedures Date of Service Date of Service: 07/16/25
--- NOTE | 2025-07-16 14:01 | MHC.CM.PN ---
PT LIVES ALONE SHE HAD NO PREVIOUS SERVICES SHE IS INDEPEDENT PT STARTED DIALYSIS TODAY IT IS TBE WHERE AND WHEN PT WILL BE GOING FOR TREATMENT PTS SISTER IS HER HCP ARTHUR PINZON [phone] PT HAS TRANSPORT HOME
[2025-07-16] MEDS: Aspirin Enteric Coated 81 MG TABLET.DR PO (16:04)
[2025-07-17 03:10] VITALS: BP 156/68; PULSE 67; RESP 18; TEMP 36.6; O2SAT 92
[2025-07-17 06:19] LABS: Hematocrit 29.1 % (37.0-47.0); Hemoglobin 9.5 g/dl (12.0-16.0); Mean Corpuscular HGB Conc 32.6 g/dl (31.0-35.0); Mean Corpuscular Hemoglobin 28.3 pg (27.0-33.0); Mean Corpuscular Volume 86.6 fL (80.0-98.0); NRBC Abs Auto 0.000 X10*3/uL (0.0-0.012); NRBC Pct Auto 0.0 /100WBC (0.0-0.2); Platelet Count 208 X10*3/uL (160-400); Red Blood Count 3.36 X10*6/uL (4.20-5.50); White Blood Count 8.0 X10*3/uL (4.8-10.8)
[2025-07-17 06:40] LABS: Iron 47 mcg/dL (30-160); Percent Iron Saturation 19 % (15-50); Total Iron Binding Capacity 246 mcg/dL (228-428); Unsaturated Iron Binding 199 ug/dL
[2025-07-17 06:42] LABS: Anion Gap 15 (12-20); Blood Urea Nitrogen 59 mg/dL (9-16); Calcium 8.7 mg/dL (8.4-10.2); Carbon Dioxide 23 mmol/L (22-29); Chloride 108 mmol/L (96-108); Creatinine Clr Calc Pharmacy 12.0; Estimated Glomerular Filt Rate 11; Potassium 3.9 mmol/L (3.3-5.1); Sodium 142 mmol/L (135-145)
[2025-07-17 06:57] VITALS: BP 170/70; PULSE 67; RESP 16; TEMP 36.6; O2SAT 93
[2025-07-17 07:01] LABS: Parathyroid Hormone Intact 411.9 pg/mL (8.7-77.1)
--- NOTE | 2025-07-17 08:14 | HO.PM.IMPN ---
Subjective Subjective Date of Service: 07/17/25 Interval History: feels better today ENT Ears, Nose, Mouth, and Throat: Reports Normal hearing present Neurologic Neurologic: Reports Normal hearing present Physical Exam Vital Signs: Vital Signs: Last Vital Signs Temp 97.9 F 07/17/25 06:57 Pulse 67 07/17/25 06:57 Resp 16 07/17/25 06:57 BP 170/70 H 07/17/25 06:57 Pulse Ox 93 07/17/25 06:57 O2 Del Method Room Air 07/17/25 06:57 BMI result Body Mass Index 30.5 Neuro: Cranial nerves: Yes Normal hearing present Objective Data Active Medications Acetaminophen (Acetaminophen 325 Mg Tablet) 650 mg PO Q6H PRN PRN Reason: Pain, Mild 1-3,fever,headache Aspirin (Aspirin Enteric Coated 81 Mg Tablet.) 81 mg PO DAILY [facility] Last Admin: 07/16/25 16:04 Dose: 81 mg Documented By: JIM Atorvastatin Calcium (Atorvastatin Calcium 80 Mg Tablet) 80 mg PO DAILY@1700 [facility] Last Admin: 07/16/25 16:06 Dose: 80 mg Documented By: JIM Calcitriol (Calcitriol 0.25 Mcg Capsule) 0.25 mcg PO MoWeFr@0900 [facility] Calcium Carbonate (Calcium Carbonate 750 Mg Tab.Chew) 750 mg PO Q4H PRN PRN Reason: Heartburn Carvedilol (Carvedilol 6.25 Mg Tablet) 6.25 mg PO BID@0900,1700 [facility]; Protocol Last Admin: 07/16/25 16:06 Dose: 6.25 mg Documented By: JIM Ezetimibe (Ezetimibe 10 Mg Tablet) 10 mg PO DAILY [facility] Ferrous Sulfate (Ferrous Sulfate 324 Mg Tablet.) 324 mg PO DAILY [facility] Furosemide (Furosemide 40 Mg Tablet) 80 mg PO DAILY PRN; Protocol PRN Reason: Fluid Overload Gabapentin (Gabapentin 100 Mg Capsule) 100 mg PO TID [facility] Last Admin: 07/16/25 20:57 Dose: 100 mg Documented By: JESSICA Heparin Sodium (Porcine) (Heparin Sodium,Porcine 5,000 Unit/Ml Vial) 5,000 unit SUBCUT Q8H [facility] Last Admin: 07/17/25 05:11 Dose: 5,000 unit Documented By: JESSICA Hydralazine HCl (Hydralazine Hcl 50 Mg Tablet) 50 mg PO BID@0900,1700 [facility]; Protocol Last Admin: 07/16/25 16:07 Dose: 50 mg Documented By: JIM Isosorbide Mononitrate (Isosorbide Mononitrate 60 Mg Tab.Er.24h) 120 mg PO DAILY [facility]; Protocol Lorazepam (Lorazepam 1 Mg Tablet) 1 mg PO BEDTIME PRN PRN Reason: Insomnia Last Admin: 07/16/25 21:00 Dose: 1 mg Documented By: JESSICA Magnesium Hydroxide (Milk Of Magnesia 30 Ml Oral.Susp) 30 ml PO DAILY PRN PRN Reason: Constipation Melatonin (Melatonin 3 Mg Tablet) 6 mg PO BEDTIME PRN PRN Reason: Insomnia Sodium Chloride (0.9 % Sodium Chloride Flush 3 Ml Syringe) 3 ml IVFLUSH QSHIFT [facility] Last Admin: 07/16/25 21:26 Dose: 3 ml Documented By: JESSICA Labs 07/17/25 05:51 07/17/25 05:51 Labs: Laboratory Results - last 24 hr 07/15/25 07/16/25 07/17/25 19:37 09:28 05:51 MCV 86.6 MCH 28.3 MCHC 32.6 RDW 18.6 H Plt Count 208 MPV 10.7 Absolute Nucleated RBC 0.000 Nucleated RBC % (auto) 0.0 Anion Gap 15 Estim Creat Clear Calc 12.0 Estimated GFR 11 Random Glucose 97 Calcium 8.7 D Phosphorus 4.1 Iron 47 TIBC 246 % Saturation 19 Unsat Iron Binding 199 PTH Intact 411.9 H Hep Bs Antigen Negative Hep Bs Antibody NONREACTIVE Hep B Core Total Ab Nonreactive Blood Type A Positive Antibody Screen NEGATIVE Crossmatch See Detail Assessment and Plan (1) Diabetic nephropathy: Status: Acute Plan 75F PMH CKD V, DM, htn, hld, bioavr, sent in by nephro to initiate HD due to symptoms of uremia (fatigue, loss of appetite) Advanced CKD 5 with symptoms of uremia Initiated hemodialysis via mature AV fistula 07/16/25 improving chronic anemia of CKD transfused 1 unit prbc, hgb improved appropriately Diabetes Insulin sliding scale Hypertension Carvedilol, hydralazine, Imdur Hyperlipidemia Statin DVT prophylaxis-heparin subQ Full code reason for continued hospitalization:initiating hd, setting up outpatient HD Quality Stroke Does the patient have a stroke diagnosis?: No VTE Prior VTE?: No VTE Risk Level:: Medical - moderate - high VTE Device Contraindication: Treatment Not Indicated VTE Drug Contraindication: N/A - Med Ordered
[2025-07-17] MEDS: Ferrous Sulfate 324 MG TABLET.DR PO (08:17)
[2025-07-17] MEDS: Aspirin Enteric Coated 81 MG TABLET.DR PO (08:17)
[2025-07-17] MEDS: 0.9 % Sodium Chloride Flush 3 ML SYRINGE IVFLUSH ×3 (08:24→20:21)
[2025-07-17 15:44] VITALS: BP 139/59; PULSE 67; RESP 18; TEMP 36.8; O2SAT 93
[2025-07-17 20:00] VITALS: BP 118/49; PULSE 61; RESP 18; TEMP 36.1; O2SAT 95
[2025-07-18 03:33] VITALS: BP 137/61; PULSE 59; RESP 18; TEMP 36.2; O2SAT 93
[2025-07-18 06:12] LABS: Hematocrit 27.3 % (37.0-47.0); Hemoglobin 8.6 g/dl (12.0-16.0); Mean Corpuscular HGB Conc 31.5 g/dl (31.0-35.0); Mean Corpuscular Hemoglobin 27.8 pg (27.0-33.0); Mean Corpuscular Volume 88.3 fL (80.0-98.0); NRBC Abs Auto 0.000 X10*3/uL (0.0-0.012); NRBC Pct Auto 0.0 /100WBC (0.0-0.2); Platelet Count 201 X10*3/uL (160-400); Red Blood Count 3.09 X10*6/uL (4.20-5.50); White Blood Count 7.7 X10*3/uL (4.8-10.8)
[2025-07-18 06:16] LABS: Anion Gap 13 (12-20); Blood Urea Nitrogen 72 mg/dL (9-16); Calcium 8.2 mg/dL (8.4-10.2); Carbon Dioxide 24 mmol/L (22-29); Chloride 107 mmol/L (96-108); Creatinine Clr Calc Pharmacy 10.3; Estimated Glomerular Filt Rate 10; Potassium 4.3 mmol/L (3.3-5.1); Sodium 140 mmol/L (135-145)
[2025-07-18 07:42] VITALS: BP 143/60; PULSE 64; RESP 18; TEMP 36; O2SAT 93
[2025-07-18] MEDS: Aspirin Enteric Coated 81 MG TABLET.DR PO (08:33)
[2025-07-18] MEDS: Ferrous Sulfate 324 MG TABLET.DR PO (08:33)
--- NOTE | 2025-07-18 08:39 | HO.PM.IMPN ---
Subjective Subjective Date of Service: 07/18/25 Interval History: feeling better Physical Exam Exam: Exam: General: AO X 3, no acute distress Resp: CTA bilateral, no accessory muscles used CVS: S1,S2,RRR GI: soft, non tender, non distended Neuro: motor grossly intact, alert Psych: appropriate affect, appropriate insight Vital Signs: Vital Signs: Last Vital Signs Temp 96.8 F 07/18/25 07:42 Pulse 64 07/18/25 07:42 Resp 18 07/18/25 07:42 BP 143/60 H 07/18/25 07:42 Pulse Ox 93 07/18/25 07:42 O2 Del Method Room Air 07/18/25 07:42 BMI result Body Mass Index 30.5 Objective Data Active Medications Acetaminophen (Acetaminophen 325 Mg Tablet) 650 mg PO Q6H PRN PRN Reason: Pain, Mild 1-3,fever,headache Aspirin (Aspirin Enteric Coated 81 Mg Tablet.) 81 mg PO DAILY [facility] Last Admin: 07/18/25 08:33 Dose: 81 mg Documented By: AZUL Atorvastatin Calcium (Atorvastatin Calcium 80 Mg Tablet) 80 mg PO DAILY@1700 [facility] Last Admin: 07/17/25 17:10 Dose: 80 mg Documented By: JIM Calcitriol (Calcitriol 0.25 Mcg Capsule) 0.25 mcg PO MoWeFr@0900 [facility] Last Admin: 07/18/25 08:33 Dose: 0.25 mcg Documented By: AZUL Calcium Carbonate (Calcium Carbonate 750 Mg Tab.Chew) 750 mg PO Q4H PRN PRN Reason: Heartburn Carvedilol (Carvedilol 6.25 Mg Tablet) 6.25 mg PO BID@0900,1700 [facility]; Protocol Last Admin: 07/18/25 08:33 Dose: 6.25 mg Documented By: AZUL Ezetimibe (Ezetimibe 10 Mg Tablet) 10 mg PO DAILY [facility] Last Admin: 07/18/25 08:33 Dose: 10 mg Documented By: AZUL Ferrous Sulfate (Ferrous Sulfate 324 Mg Tablet.) 324 mg PO DAILY [facility] Last Admin: 07/18/25 08:33 Dose: 324 mg Documented By: AZUL Furosemide (Furosemide 40 Mg Tablet) 80 mg PO DAILY PRN; Protocol PRN Reason: Fluid Overload Gabapentin (Gabapentin 100 Mg Capsule) 100 mg PO TID [facility] Last Admin: 07/18/25 08:33 Dose: 100 mg Documented By: AZUL Heparin Sodium (Porcine) (Heparin Sodium,Porcine 5,000 Unit/Ml Vial) 5,000 unit SUBCUT Q8H [facility] Last Admin: 07/18/25 05:38 Dose: 5,000 unit Documented By: JULISA Hydralazine HCl (Hydralazine Hcl 50 Mg Tablet) 50 mg PO BID@0900,1700 [facility]; Protocol Last Admin: 07/18/25 08:33 Dose: 50 mg Documented By: AZUL Isosorbide Mononitrate (Isosorbide Mononitrate 60 Mg Tab.Er.24h) 120 mg PO DAILY [facility]; Protocol Last Admin: 07/18/25 08:33 Dose: 120 mg Documented By: AZUL Lorazepam (Lorazepam 1 Mg Tablet) 1 mg PO BEDTIME PRN PRN Reason: Insomnia Last Admin: 07/17/25 20:21 Dose: 1 mg Documented By: JULISA Magnesium Hydroxide (Milk Of Magnesia 30 Ml Oral.Susp) 30 ml PO DAILY PRN PRN Reason: Constipation Melatonin (Melatonin 3 Mg Tablet) 6 mg PO BEDTIME PRN PRN Reason: Insomnia Sodium Chloride (0.9 % Sodium Chloride Flush 3 Ml Syringe) 3 ml IVFLUSH QSHIFT [facility] Last Admin: 07/18/25 07:00 Dose: Not Given Documented By: AZUL Non-Admin Reason: Previously Administered Labs 07/18/25 05:26 07/18/25 05:26 Labs: Laboratory Results - last 24 hr 07/18/25 05:26 MCV 88.3 MCH 27.8 MCHC 31.5 RDW 18.6 H Plt Count 201 MPV 11.1 Absolute Nucleated RBC 0.000 Nucleated RBC % (auto) 0.0 Anion Gap 13 Estim Creat Clear Calc 10.3 Estimated GFR 10 Random Glucose 94 Calcium 8.2 L Assessment and Plan (1) Diabetic nephropathy: Status: Acute Plan 75F PMH CKD V, DM, htn, hld, bioavr, sent in by nephro to initiate HD due to symptoms of uremia (fatigue, loss of appetite) Advanced CKD 5 with symptoms of uremia Initiated hemodialysis via mature AV fistula 07/16/25 improving chronic anemia of CKD transfused 1 unit prbc, hgb improved appropriately Diabetes Insulin sliding scale Hypertension Carvedilol, hydralazine, Imdur Hyperlipidemia Statin DVT prophylaxis-heparin subQ Full code reason for continued hospitalization:initiating hd, setting up outpatient HD Quality Stroke Does the patient have a stroke diagnosis?: No VTE Prior VTE?: No VTE Risk Level:: Medical - moderate - high VTE Device Contraindication: Treatment Not Indicated VTE Drug Contraindication: N/A - Med Ordered
--- NOTE | 2025-07-18 08:40 | P.DS_ITS ---
DS: Providers Provider Date of Service: 07/19/25 Date of admission: 07/15/25 21:32 Date of discharge: 07/19/25 Primary care physician: Barbara Winchester MD Consults: 07/15/25 21:32 Consult to Nephrology Routine Consulting Provider: [facility] Reason for consultation: ESRD DS: Diagnosis Discharge Diagnosis (1) Diabetic nephropathy: Status: Acute DS: Summary Hospital Course Hospital Course: from initial hpi: 75-year-old female with a past history HTN, HLD, CKD stage 5, left arm AV fistula; diabetes HX aortic valve replacement; presented to the hospital today with a chief complaint of generalized weakness. Patient reports that she did feel generally weak and fatigued. Has had a follow up appointment with her special warfare boat operator who noted that her uremia is increasing. Mentions she takes Lasix 80 mg at home with little urine output lately. Denies any chest pain or palpitations. Denies any fevers and chills. Reports bilateral leg swelling. Denies any pain. Denies any urinary symptoms. Review of all other systems is negative except mentioned above ER course: Per ER physician, patient noted to be breathing comfortably on room air. Noted to have elevated uremia. Spoke to Dr. Jaime who sent her to the ER for initiation of dialysis. Mentions patient has left arm AV fistula that is make showed. hospital course: Patient was admitted for advanced CKD 5 with symptoms of uremia. Was initiated on hemodialysis via presumed mature AV fistula on 07/16/2025 with significant improvement in symptoms, however, during second session 07/19/25 fistula was tenuous so permacath was placed. Appetite has improved fatigue has improved. patient has been set up and will continue hemodialysis as outpatient. For chronic anemia of CKD was transfused 1 unit PRBC and hemoglobin improved appropriately. For diabetes was continued insulin sliding scale. For hypertension continued on carvedilol, hydralazine, Imdur. For hyperlipidemia continued on statin. Patient is feeling better and will be discharged home. Physical Exam Exam: Exam: General: AO X 3, no acute distress Resp: CTA bilateral, no accessory muscles used CVS: S1,S2,RRR GI: soft, non tender, non distended Neuro: motor grossly intact, alert Psych: appropriate affect, appropriate insight Vital Signs: Vital Signs: Last Vital Signs Temp 96.8 F 07/18/25 07:42 Pulse 64 07/18/25 07:42 Resp 18 07/18/25 07:42 BP 143/60 H 07/18/25 07:42 Pulse Ox 93 07/18/25 07:42 O2 Del Method Room Air 07/18/25 07:42 BMI result Body Mass Index 30.5 DS: Data Data Completed and Pending Labs on day of discharge: Laboratory Results - last 24 hr 07/18/25 05:26 WBC 7.7 RBC 3.09 L Hgb 8.6 L Hct 27.3 L MCV 88.3 MCH 27.8 MCHC 31.5 RDW 18.6 H Plt Count 201 MPV 11.1 Absolute Nucleated RBC 0.000 Nucleated RBC % (auto) 0.0 Sodium 140 Potassium 4.3 Chloride 107 Carbon Dioxide 24 Anion Gap 13 BUN 72 H Creatinine 4.47 H* Estim Creat Clear Calc 10.3 Estimated GFR 10 Random Glucose 94 Calcium 8.2 L Discharge Plan Discharge Anticipated Discharge Date/Time: 07/18/25 08:38 Patient Disposition: Home, Self-Care Discharge Diagnosis: uremia Referrals: Barbara Winchester MD [Primary Care Provider, Internal Medicine] - 1 Week Discharge Medications: New gabapentin 100 mg Capsule 100 mg PO TID 90 Days Qty: 270 0RF Continued calcitriol 0.25 mcg Capsule 0.25 mcg PO MOWEFR Rx Instructions: administer after dialysis on dialysis days atorvastatin 80 mg tablet 80 mg PO DAILY@1700 hydralazine 25 mg tablet 50 mg PO BID@0900,1700 lorazepam 1 mg Tablet 1 mg PO BEDTIME PRN (Reason: Insomnia) ezetimibe 10 mg tablet 10 mg PO DAILY aspirin 81 mg tablet,delayed release (DR/EC) 81 mg PO DAILY Slow Fe 137 mg (45 mg iron) tablet extended release 45 mg PO DAILY carvedilol 3.125 mg tablet 6.25 mg PO BID@0900,1700 Rx Instructions: must administer with a meal/food furosemide 40 mg tablet 80 mg PO DAILY PRN (Reason: Fluid Overload) isosorbide mononitrate 60 mg tablet extended release 24 hr 120 mg PO DAILY 90 Days Qty: 180 3RF Diet: Advance to usual diet Activity on Discharge: As tolerated Stand Alone Forms: Patient Portal Discharge page Print Language: Bolivian Care Plan Goals: manage esrd Health Concerns: esrd Plan of Treatment: HD Assessment: see above
--- NOTE | 2025-07-18 08:40 | PC.NURSE ---
pt req freddy upon d/c stating it helps with her LE pain overnight. pt also voiced concern over ther leg swelling and a new lump on her RLE. was informed
--- NOTE | 2025-07-18 09:30 | P.PNNP_ITS ---
Subjective Subjective Date of Service: 07/18/25 Interval history: patient here with uremic symptoms and progression of advanced renal disease, now ESRD on HD. patient is feeling improvement. Reports no shortness of breath, though notes she has been sitting in the recliner or bed and not as active as usual. Denies urinary symptoms and continues to make urine. Reports ongoing joint pains that have been present for months. Cramping has improved. No nausea/vomiting/lethargy. She received HD on Friday, reports significant improvement in her LE edema since that session. Physical Exam 2 Vital Signs: Vital Signs: Last Vital Signs Temp 96.8 F 07/18/25 07:42 Pulse 64 07/18/25 07:42 Resp 18 07/18/25 07:42 BP 143/60 H 07/18/25 07:42 Pulse Ox 93 07/18/25 07:42 O2 Del Method Room Air 07/18/25 07:42 BMI result Body Mass Index 30.5 Const: General: no acute distress, alert and awake Resp: Effort & Inspection: normal respiratory effort and able to speak in complete sentences Auscultation: clear to auscultation bilaterally Cardio: Rate: regular rate Rhythm: regular rhythm Heart sounds: S1 normal heart sound present and S2 normal heart sound present GI: Palpation (GI): Soft to palpation and nontender Skin: Rashes: no rashes Extrem: General: Yes edema (BLE edema +1) Objective Data Labs 07/18/25 05:26 07/18/25 05:26 Labs: Laboratory Results - last 24 hr 07/18/25 05:26 WBC 7.7 RBC 3.09 L Hgb 8.6 L Hct 27.3 L MCV 88.3 MCH 27.8 MCHC 31.5 RDW 18.6 H Plt Count 201 MPV 11.1 Absolute Nucleated RBC 0.000 Nucleated RBC % (auto) 0.0 Sodium 140 Potassium 4.3 Chloride 107 Carbon Dioxide 24 Anion Gap 13 BUN 72 H Creatinine 4.47 H* Estim Creat Clear Calc 10.3 Estimated GFR 10 Random Glucose 94 Calcium 8.2 L Procedures Date of Service Date of Service: 07/18/25 Assessment & Plan Assessment and plan (1) ESRD (end stage renal disease) on dialysis: Status: Acute Plan ESRD, started on dialysis this past Friday. Plan for HD tomorrow morning, then will be d/c'd home with TTS dialysis schedule as outpatient. has LUE AV fistula with +thrill, +bruit H&H is 8.6 &27.3, will administer procrit electrolytes within normal limits no metabolic acidosis at this time patient appears slightly hypervolemic, will continue to remove fluid with dialysis she has a chair at [facility] in [place], [facility] Belinda Ward (phone #[phone], Floor [address] is [place]). Patient will need transportation arranged from home to outpatient dialysis for , 07/21 and Friday, 07/23 (thereafter [facility] will arrange transport). territory account manager consult placed to arrange transport. Discussed with Dr Ni. Time Spent With Patient Time: Total time managing care of this patient today ____ minutes. Progress Note: Quality Stroke Does the patient have a stroke diagnosis?: No
--- NOTE | 2025-07-18 11:03 | MHC.CM.PN ---
pt dcd home self care
--- NOTE | 2025-07-18 11:38 | MHC.CM.PN ---
pts sister will transport her to dialysis on 07/21 and 07/23
[2025-07-18 15:53] VITALS: BP 140/63; PULSE 65; RESP 18; TEMP 36.6; O2SAT 98
[2025-07-18 20:00] VITALS: BP 140/59; PULSE 68; RESP 18; TEMP 36; O2SAT 94
[2025-07-18] MEDS: 0.9 % Sodium Chloride Flush 3 ML SYRINGE IVFLUSH (20:35)
[2025-07-19 03:39] VITALS: BP 130/50; PULSE 64; RESP 18; TEMP 36; O2SAT 96
[2025-07-19 07:38] VITALS: BP 148/60; PULSE 66; RESP 18; TEMP 36.2; O2SAT 94
[2025-07-19] MEDS: Ferrous Sulfate 324 MG TABLET.DR PO (08:07)
[2025-07-19] MEDS: Aspirin Enteric Coated 81 MG TABLET.DR PO (08:08)
--- NOTE | 2025-07-19 09:49 | P.PNNPD_ITS ---
Subjective Subjective Date of Service: 07/19/25 This patient was seen during dialysis. Interval history: patient here with uremic symptoms and progression of advanced renal disease, now ESRD on HD. Pt denies shortness of breath. Denies urinary symptoms and continues to make urine. Reports ongoing joint pains that have been present for months. No cramping. No nausea/vomiting/lethargy. She received HD on Friday, next session today. Plan to discharge home after dialysis today- unfortunately, AV fistula infiltrated x2, only 30 minutes of treatment completed this a.m. Physical Exam Vital Signs: Vital Signs: Last Vital Signs Temp 97.2 F 07/19/25 07:38 Pulse 66 07/19/25 07:38 Resp 18 07/19/25 07:38 BP 148/60 H 07/19/25 07:38 Pulse Ox 94 07/19/25 07:38 O2 Del Method Room Air 07/19/25 07:38 BMI result Body Mass Index 30.5 Const: General: no acute distress, alert and awake Resp: Effort & Inspection: normal respiratory effort and able to speak in complete sentences Auscultation: clear to auscultation bilaterally Cardio: Rate: regular rate Rhythm: regular rhythm Heart sounds: S1 normal heart sound present and S2 normal heart sound present GI: Palpation (GI): Soft to palpation and nontender Skin: Rashes: no rashes Extrem: General: Yes edema (BLE edema +1) Assessment & Plan Assessment and plan (1) ESRD (end stage renal disease) on dialysis: Status: Acute Plan ESRD, started on dialysis 07/16/25. HD today- per HD RN, AV fistula is very frail, infiltrated twice, only 30 minutes of dialysis completed. Permcath ordered STAT, called and notified IR (no answer, left voicemail to notify and requested call back). H&H is 8.6 &27.3, procrit administered yesterday. electrolytes within normal limits no metabolic acidosis at this time patient appears slightly hypervolemic, will continue to remove fluid with dial ysis patient will need permcath placed and HD session completed before discharge for outpatient treatment. she has a chair at [facility] in [place], [facility] Belinda Javier (phone #, Air Reduction Equipment Operator is Heriberto). Patient will need transportation arranged from home to outpatient dialysis for , 07/21 and Friday, 07/23 (thereafter [facility] will arrange transport). gift manager consult placed to arrange transport- per correctional case manager note patient will get ride from her sister for first session. Discussed with Dr Millan. Time Spent With Patient Time: Total time managing care of this patient today ____ minutes. Procedures Date of Service Date of Service: 07/19/25
--- NOTE | 2025-07-19 10:17 | HO.PM.IMPN ---
Subjective Subjective Date of Service: 07/19/25 Interval History: difficulty with fistula in HD Physical Exam Vital Signs: Vital Signs: Last Vital Signs Temp 97.2 F 07/19/25 07:38 Pulse 66 07/19/25 07:38 Resp 18 07/19/25 07:38 BP 148/60 H 07/19/25 07:38 Pulse Ox 94 07/19/25 07:38 O2 Del Method Room Air 07/19/25 07:38 BMI result Body Mass Index 30.5 Const: General: no acute distress, alert and awake Resp: Effort & Inspection: normal respiratory effort and able to speak in complete sentences Auscultation: clear to auscultation bilaterally Cardio: Rate: regular rate Rhythm: regular rhythm Heart sounds: S1 normal heart sound present and S2 normal heart sound present GI: Palpation (GI): Soft to palpation and nontender Skin: Rashes: no rashes Extrem: General: Yes edema (BLE edema +1) Objective Data Active Medications Acetaminophen (Acetaminophen 325 Mg Tablet) 650 mg PO Q6H PRN PRN Reason: Pain, Mild 1-3,fever,headache Aspirin (Aspirin Enteric Coated 81 Mg Tablet.) 81 mg PO DAILY [facility] On Hold: 07/19/25 10:16 Last Admin: 07/19/25 08:08 Dose: 81 mg Documented By: AZUL Atorvastatin Calcium (Atorvastatin Calcium 80 Mg Tablet) 80 mg PO DAILY@1700 [facility] Last Admin: 07/18/25 16:13 Dose: 80 mg Documented By: AZUL Calcitriol (Calcitriol 0.25 Mcg Capsule) 0.25 mcg PO MoWeFr@0900 [facility] Last Admin: 07/18/25 08:33 Dose: 0.25 mcg Documented By: AZUL Calcium Carbonate (Calcium Carbonate 750 Mg Tab.Chew) 750 mg PO Q4H PRN PRN Reason: Heartburn Carvedilol (Carvedilol 6.25 Mg Tablet) 6.25 mg PO BID@0900,1700 [facility]; Protocol Last Admin: 07/19/25 08:08 Dose: 6.25 mg Documented By: AZUL Ezetimibe (Ezetimibe 10 Mg Tablet) 10 mg PO DAILY [facility] Last Admin: 07/19/25 08:08 Dose: 10 mg Documented By: AZUL Ferrous Sulfate (Ferrous Sulfate 324 Mg Tablet.) 324 mg PO DAILY [facility] Last Admin: 07/19/25 08:07 Dose: 324 mg Documented By: AZUL Furosemide (Furosemide 40 Mg Tablet) 80 mg PO DAILY PRN; Protocol PRN Reason: Fluid Overload Gabapentin (Gabapentin 100 Mg Capsule) 100 mg PO TID [facility] Last Admin: 07/19/25 08:07 Dose: 100 mg Documented By: AZUL Heparin Sodium (Porcine) (Heparin Sodium,Porcine 5,000 Unit/Ml Vial) 5,000 unit SUBCUT Q8H [facility] On Hold: 07/19/25 10:16 Last Admin: 07/19/25 06:14 Dose: 5,000 unit Documented By: JULISA Hydralazine HCl (Hydralazine Hcl 50 Mg Tablet) 50 mg PO BID@0900,1700 [facility]; Protocol Last Admin: 07/19/25 08:07 Dose: 50 mg Documented By: AZUL Isosorbide Mononitrate (Isosorbide Mononitrate 60 Mg Tab.Er.24h) 120 mg PO DAILY [facility]; Protocol Last Admin: 07/19/25 08:08 Dose: 120 mg Documented By: AZUL Lorazepam (Lorazepam 1 Mg Tablet) 1 mg PO BEDTIME PRN PRN Reason: Insomnia Last Admin: 07/18/25 20:32 Dose: 1 mg Documented By: JULISA Magnesium Hydroxide (Milk Of Magnesia 30 Ml Oral.Susp) 30 ml PO DAILY PRN PRN Reason: Constipation Melatonin (Melatonin 3 Mg Tablet) 6 mg PO BEDTIME PRN PRN Reason: Insomnia Sodium Chloride (0.9 % Sodium Chloride Flush 3 Ml Syringe) 3 ml IVFLUSH QSHIFT [facility] Last Admin: 07/19/25 07:09 Dose: Not Given Documented By: AZUL Non-Admin Reason: Previously Administered Labs 07/18/25 05:26 07/18/25 05:26 Assessment and Plan (1) Diabetic nephropathy: Status: Acute Plan 75F PMH CKD V, DM, htn, hld, bioavr, sent in by nephro to initiate HD due to symptoms of uremia (fatigue, loss of appetite) Advanced CKD 5 with symptoms of uremia Initiated hemodialysis via presumed mature AV fistula 07/16/25, 07/19/25 - but has been tenuous, will need permacath prior to discharge uremia improving chronic anemia of CKD transfused 1 unit prbc, hgb improved appropriately Diabetes Insulin sliding scale Hypertension Carvedilol, hydralazine, Imdur Hyperlipidemia Statin DVT prophylaxis-heparin subQ Full code reason for continued hospitalization: fistula unreliable, will need permacath prior to discharge Quality Stroke Does the patient have a stroke diagnosis?: No VTE Prior VTE?: No VTE Risk Level:: Medical - moderate - high VTE Device Contraindication: Treatment Not Indicated VTE Drug Contraindication: N/A - Med Ordered
[2025-07-19 15:37] VITALS: BP 152/67; PULSE 61; RESP 18; TEMP 36.1; O2SAT 96
[2025-07-19 19:14] VITALS: BP 120/53; PULSE 59; RESP 18; TEMP 36.2; O2SAT 96
[2025-07-19] MEDS: 0.9 % Sodium Chloride Flush 3 ML SYRINGE IVFLUSH (20:29)
[2025-07-20] VITALS (14 sets, daily range): BP systolic 116–167; BP diastolic 36–83; PULSE 58–89; RESP 13–21; TEMP 36–36.1; O2SAT 92–100
[2025-07-20 06:20] LABS: Hematocrit 25.1 % (37.0-47.0); Hemoglobin 8.1 g/dl (12.0-16.0); Mean Corpuscular HGB Conc 32.3 g/dl (31.0-35.0); Mean Corpuscular Hemoglobin 28.2 pg (27.0-33.0); Mean Corpuscular Volume 87.5 fL (80.0-98.0); NRBC Abs Auto 0.000 X10*3/uL (0.0-0.012); NRBC Pct Auto 0.0 /100WBC (0.0-0.2); Platelet Count 179 X10*3/uL (160-400); Red Blood Count 2.87 X10*6/uL (4.20-5.50); White Blood Count 6.8 X10*3/uL (4.8-10.8)
[2025-07-20 06:40] LABS: Anion Gap 14 (12-20); Blood Urea Nitrogen 77 mg/dL (9-16); Calcium 8.3 mg/dL (8.4-10.2); Carbon Dioxide 23 mmol/L (22-29); Chloride 106 mmol/L (96-108); Creatinine Clr Calc Pharmacy 9.5; Estimated Glomerular Filt Rate 9; Potassium 4.6 mmol/L (3.3-5.1); Sodium 138 mmol/L (135-145)
--- NOTE | 2025-07-20 07:24 | PC.NURSE ---
Patient off unit for line placement.
[2025-07-20] MEDS: Ferrous Sulfate 324 MG TABLET.DR PO (09:24)
--- NOTE | 2025-07-20 10:10 | P.PNNP_ITS ---
Subjective Subjective Date of Service: 07/20/25 Interval history: patient here with uremic symptoms and progression of advanced renal disease, now ESRD on HD. Pt denies shortness of breath. Denies urinary symptoms and continues to make urine. Reports ongoing joint pains that have been present for months. No cramping. No nausea/vomiting/lethargy. She received HD on Friday, next session today- delayed yesterday as her AV fistula was not functioning properly. Had permcat placed this a.m. Plan to discharge home after dialysis today. Physical Exam 2 Vital Signs: Vital Signs: Last Vital Signs Temp 96.9 F 07/20/25 09:22 Pulse 61 07/20/25 09:22 Resp 18 07/20/25 09:22 BP 167/72 H 07/20/25 09:22 Pulse Ox 95 07/20/25 09:22 O2 Del Method Room Air 07/20/25 09:22 O2 Flow Rate 2 07/20/25 08:40 BMI result Body Mass Index 30.5 Const: General: no acute distress, alert and awake Resp: Effort & Inspection: normal respiratory effort and able to speak in complete sentences Auscultation: clear to auscultation bilaterally Cardio: Rate: regular rate Rhythm: regular rhythm Heart sounds: S1 normal heart sound present and S2 normal heart sound present GI: Palpation (GI): Soft to palpation and nontender Skin: Rashes: no rashes Extrem: General: Yes edema (BLE edema +1) Objective Data Labs 07/20/25 05:22 07/20/25 05:22 Labs: Laboratory Results - last 24 hr 07/20/25 05:22 WBC 6.8 RBC 2.87 L Hgb 8.1 L Hct 25.1 L MCV 87.5 MCH 28.2 MCHC 32.3 RDW 18.4 H Plt Count 179 MPV 11.1 Absolute Nucleated RBC 0.000 Nucleated RBC % (auto) 0.0 Sodium 138 Potassium 4.6 Chloride 106 Carbon Dioxide 23 Anion Gap 14 BUN 77 H Creatinine 4.86 H* Estim Creat Clear Calc 9.5 Estimated GFR 9 Random Glucose 96 Calcium 8.3 L Phosphorus 5.1 H Procedures Date of Service Date of Service: 07/20/25 Assessment & Plan Assessment and plan (1) ESRD (end stage renal disease) on dialysis: Status: Acute Plan ESRD, started on dialysis 07/16/25. HD today- per HD RN, AV fistula is very frail, infiltrated twice, only 30 minutes of dialysis completed yesterday. Permcath placed this a.m. per IR. H&H is 8.6 &27.3, procrit administered yesterday. electrolytes within normal limits no metabolic acidosis at this time patient appears slightly hypervolemic, will continue to remove fluid with dialysis Patient is ok for discharge from renal standpoint after dialysis is completed today. she has a chair at [employer] in [place], [facility] Belinda Ward (phone #[phone], Commodity Loan Clerk is Heriberto). Patient will need transportation arranged from home to outpatient dialysis for , 07/21 and Friday, 07/23 ([facility]after [facility] Start time is 11:50 a.m. Pt aware. remarketing manager consult placed to arrange transport- per clinical case manager note patient will get ride from her sister for first session. Discussed with Dr Ni. Time Spent With Patient Time: Total time managing care of this patient today ____ minutes. Progress Note: Quality Stroke Does the patient have a stroke diagnosis?: No
--- NOTE | 2025-07-20 10:45 | PC.NURSE ---
10:45- Patient off unit at dialysis
--- NOTE | 2025-07-20 12:37 | PM.DS ---
DS: Providers Provider Date of Service: 07/20/25 Date of admission: 07/15/25 21:32 Date of discharge: 07/20/25 Primary care physician: Barbara Winchester MD Consults: 07/15/25 21:32 Consult to Nephrology Routine Consulting Provider: [facility] Reason for consultation: ESRD Attending physician on discharge: Swathi Javier Discharging clinician: Swathi Javier DS: Diagnosis Discharge Diagnosis (1) ESRD (end stage renal disease) on dialysis: Status: Acute DS: Summary Hospital Course Hospital Course: from initial hpi: 75-year-old female with a past history HTN, HLD, CKD stage 5, left arm AV fistula; diabetes HX aortic valve replacement; presented to the hospital today with a chief complaint of generalized weakness. Patient reports that she did feel generally weak and fatigued. Has had a follow up appointment with her bricklayer who noted that her uremia is increasing. Mentions she takes Lasix 80 mg at home with little urine output lately. Denies any chest pain or palpitations. Denies any fevers and chills. Reports bilateral leg swelling. Denies any pain. Denies any urinary symptoms. Review of all other systems is negative except mentioned above ER course: Per ER physician, patient noted to be breathing comfortably on room air. Noted to have elevated uremia. Spoke to Dr. Jaime who sent her to the ER for initiation of dialysis. Mentions patient has left arm AV fistula that is make showed. hospital course: Patient was admitted for advanced CKD 5 with symptoms of uremia. Was initiated on hemodialysis via presumed mature AV fistula on 07/16/2025 with significant improvement in symptoms, however, during second session 07/19/25 fistula was tenuous so permacath was placed. Appetite has improved fatigue has improved. patient has been set up and will continue hemodialysis as outpatient. For chronic anemia of CKD was transfused 1 unit PRBC and hemoglobin improved appropriately. For diabetes was continued insulin sliding scale. For hypertension continued on carvedilol, hydralazine, Imdur. For hyperlipidemia continued on statin. as per nephro: has AVF, worked for first session, but was sluggish for second session on 07/19-s/p permcath and plan for discharge after hd . she has a chair at [employer] in [place], [facility] Belinda Ward (phone #[phone], Field Marketer is Heriberto). Patient will need transportation arranged from home to outpatient dialysis for , 07/21 and Friday, 07/23 (thereafter [facility] transport). Start time is 11:50 a.m. Pt aware. manager transit to arrange transport- per binder caser note patient will get ride from her sister for first session. Patient is feeling better and will be discharged home. Above management discussed with the patient detail length she understand and in agreement with the above plan, she also says that her sister Ms. Monique is going to stay with her few days. Also has lot of neighbors support. Assessment and plan coordination time spent 45 minute. Time Attestation Total time managing care of this patient today: 45 mintues. Discharge Coordination Time (in mins): 45 min Quality: Safe Use of Opioids Does Pt have an Active Cancer Diagnosis on the Problem List?: No Quality: Stroke Does the patient have a stroke diagnosis?: No Physical Exam Exam: Exam: Appearance: Alert.? Oriented X3.? cvs: rrr, [id number] . res: clear to auscultation ,no rhonchii or wheezing abd: no rebound or guarding ,nt, bs present. ext pulses present , no cyanosis neuro: axo3 , nonfocal. Vital Signs: Vital Signs: Last Vital Signs Temp 96.9 F 07/20/25 09:22 Pulse 61 07/20/25 09:22 Resp 18 07/20/25 09:22 BP 167/72 H 07/20/25 09:22 Pulse Ox 95 07/20/25 09:22 O2 Del Method Room Air 07/20/25 09:22 O2 Flow Rate 2 07/20/25 08:40 BMI result Body Mass Index 30.5 DS: Data Data Completed and Pending Labs on day of discharge: Laboratory Results - last 24 hr 07/20/25 05:22 WBC 6.8 RBC 2.87 L Hgb 8.1 L Hct 25.1 L MCV 87.5 MCH 28.2 MCHC 32.3 RDW 18.4 H Plt Count 179 MPV 11.1 Absolute Nucleated RBC 0.000 Nucleated RBC % (auto) 0.0 Sodium 138 Potassium 4.6 Chloride 106 Carbon Dioxide 23 Anion Gap 14 BUN 77 H Creatinine 4.86 H* Estim Creat Clear Calc 9.5 Estimated GFR 9 Random Glucose 96 Calcium 8.3 L Phosphorus 5.1 H Imaging Chest x-ray: Radiologist's impression: cxr: 1. Small bilateral pleural effusions. 2. Stable mild cardiomegaly. Discharge Plan Discharge Anticipated Discharge Date/Time: 07/18/25 08:38 Patient Disposition: Home, Self-Care Discharge Diagnosis: uremia Referrals: Barbara Winchester MD [Primary Care Provider, Internal Medicine] - 1 Week Discharge Medications: New gabapentin 100 mg Capsule 100 mg PO TID 90 Days Qty: 270 0RF Continued calcitriol 0.25 mcg Capsule 0.25 mcg PO MOWEFR Rx Instructions: administer after dialysis on dialysis days atorvastatin 80 mg tablet 80 mg PO DAILY@1700 hydralazine 25 mg tablet 50 mg PO BID@0900,1700 lorazepam 1 mg Tablet 1 mg PO BEDTIME PRN (Reason: Insomnia) ezetimibe 10 mg tablet 10 mg PO DAILY aspirin 81 mg tablet,delayed release (DR/EC) 81 mg PO DAILY Slow Fe 137 mg (45 mg iron) tablet extended release 45 mg PO DAILY carvedilol 3.125 mg tablet 6.25 mg PO BID@0900,1700 Rx Instructions: must administer with a meal/food furosemide 40 mg tablet 80 mg PO DAILY PRN (Reason: Fluid Overload) isosorbide mononitrate 60 mg tablet extended release 24 hr 120 mg PO DAILY 90 Days Qty: 180 3RF Discharge Orders: Discharge Order (Routine); Ordered 07/20/25 Ordered By: Swathi Javier Diet: Advance to usual diet Activity on Discharge: As tolerated Stand Alone Forms: Patient Portal Discharge page Print Language: [place] Care Plan Goals: manage esrd Health Concerns: esrd Plan of Treatment: HD Assessment: see above Patient Instructions: Perma-cath Placement (GEN) Discharge Date/Time: 07/20/25 16:23
--- NOTE | 2025-07-20 13:03 | MHC.CM.PN ---
pt dcd home self care
--- NOTE | 2025-07-20 14:46 | PC.NURSE ---
14:45 - Patient returned to unit from dialysis
[2025-07-26 06:38] LABS: Vitamin D 25-OH, D2 35 ng/mL; Vitamin D 25-OH, D3 8 ng/mL; Vitamin D 25-OH, Total 43 ng/mL (30-100)
== END 2025-07-20 16:23 | disposition home or self-care (01) | DRG 291 ==
LOC: HO.ED 21:38 → HO.EDOVER 21:45 → HO.S3 07-16 12:02
PROVIDERS: Internal Medicine; Internal Medicine Critical Care Medicine; Internal Medicine Nephrology; Nurse Practitioner Family; Physician Assistant Medical; Radiology Diagnostic Radiology; Admitting Provider Hospitalist; Emergency Provider Student in an Organized Health Care Education/Training Program; PCP Internal Medicine; Visit Provider Internal Medicine
PROC: 0JH63XZ Insertion of Tunneled Vascular Access Device into Chest Subcutaneous Tissue and Fascia, Percutaneous Approach (ICD-10-PCS; principal; 2025-07-20 11:30)
DX: I13.2 Hypertensive heart and chronic kidney disease with heart failure and with stage 5 chronic kidney disease, or end stage renal disease (principal); N18.6 End stage renal disease; N25.81 Secondary hyperparathyroidism of renal origin; I50.32 Chronic diastolic (congestive) heart failure; E11.22 Type 2 diabetes mellitus with diabetic chronic kidney disease; E78.5 Hyperlipidemia, unspecified; D63.1 Anemia in chronic kidney disease; I25.10 Atherosclerotic heart disease of native coronary artery without angina pectoris; Z95.1 Presence of aortocoronary bypass graft; Z99.2 Dependence on renal dialysis; Z79.82 Long term (current) use of aspirin; Z95.2 Presence of prosthetic heart valve; Z79.899 Other long term (current) drug therapy
CPT/HCPCS: 36415; 36558; 71045; 76937; 80048; 80053; 82306; 83540; 83735; 83880; 83970; 84100; 85025; 85027; 85610; 86704; 86706; 86850; 86900; 86901; 86923; 87340; 90999; 99152; 99153; 99285; C1750; C1769; J1644; J2003; J2250; J3010; P9016; Q5106

== ENCOUNTER → 2025-07-15 21:24 | Outpatient (BNV) | payer MEDICARE, OTHER, SELFPAY | PROVIDERS: Admitting Provider Hospitalist; Emergency Provider Student in an Organized Health Care Education/Training Program; PCP Internal Medicine; Visit Provider Student in an Organized Health Care Education/Training Program | DX: J90 Pleural effusion, not elsewhere classified (principal) | CPT/HCPCS: 71045 ==

== ENCOUNTER 2025-07-15 21:32 | Outpatient (BNV) | payer MEDICARE, OTHER, SELFPAY | END 2025-07-20 09:59 | PROVIDERS: Admitting Provider Hospitalist; Emergency Provider Student in an Organized Health Care Education/Training Program; PCP Internal Medicine; Visit Provider Radiology Diagnostic Radiology | DX: N17.9 Acute kidney failure, unspecified (principal) | CPT/HCPCS: 36558; 77001 ==

== ENCOUNTER → 2025-07-15 21:32 | Outpatient (BNV) | payer MEDICARE, OTHER, SELFPAY | PROVIDERS: Admitting Provider Hospitalist; Emergency Provider Student in an Organized Health Care Education/Training Program; PCP Internal Medicine; Visit Provider Internal Medicine | DX: E11.21 Type 2 diabetes mellitus with diabetic nephropathy (principal); N18.5 Chronic kidney disease, stage 5 | CPT/HCPCS: 99223; 99232; 99239 ==

== ENCOUNTER → 2025-07-15 21:32 | Outpatient (BNV) | payer MEDICARE, OTHER, SELFPAY | PROVIDERS: Admitting Provider Hospitalist; Emergency Provider Student in an Organized Health Care Education/Training Program; PCP Internal Medicine; Visit Provider Nurse Practitioner Family | DX: N18.6 End stage renal disease (principal); Z99.2 Dependence on renal dialysis | CPT/HCPCS: 90935; 99232 ==

== ENCOUNTER → 2025-07-15 21:32 | Outpatient (BNV) | payer MEDICARE, OTHER, SELFPAY | PROVIDERS: Admitting Provider Hospitalist; Emergency Provider Student in an Organized Health Care Education/Training Program; PCP Internal Medicine; Visit Provider Internal Medicine Critical Care Medicine | DX: I12.0 Hypertensive chronic kidney disease with stage 5 chronic kidney disease or end stage renal disease (principal); N18.6 End stage renal disease; E78.5 Hyperlipidemia, unspecified; N19 Unspecified kidney failure | CPT/HCPCS: 99223 ==

== ENCOUNTER → 2025-08-03 23:59 | Outpatient (BNV) | payer MEDICARE, OTHER, SELFPAY | PROVIDERS: PCP Internal Medicine; Visit Provider Internal Medicine Nephrology | DX: N18.6 End stage renal disease (principal) | CPT/HCPCS: 90961 ==

== ENCOUNTER → 2025-09-03 23:59 | Outpatient (BNV) | payer MEDICARE, OTHER, SELFPAY | PROVIDERS: PCP Internal Medicine; Visit Provider Internal Medicine Nephrology | DX: N18.6 End stage renal disease (principal) | CPT/HCPCS: 90962 ==

== ENCOUNTER → 2025-10-03 23:59 | Outpatient (BNV) | payer MEDICARE, OTHER, SELFPAY | PROVIDERS: PCP Internal Medicine; Visit Provider Internal Medicine Nephrology | DX: N18.6 End stage renal disease (principal) | CPT/HCPCS: 90961 ==